=== PATIENT | female | born 1965 | race Caucasian/White ===

== ENCOUNTER 2016-12-04 13:53 | Inpatient (IN) | payer OTHER ==
[~2016-12-04] VITALS: Ht 160 cm; Wt 45.0 kg
[2016-12-04 13:53] VITALS: Ht 160 cm; Wt 45.0 kg
[2016-12-04] MEDS ORDERED: morphine 10 MG INJ IM ONE (14:30)
--- NOTE | 2016-12-04 15:07 | RADRPT ---
PROCEDURE: CT Brain without contrast. CLINICAL INDICATION: fall, thinks she hit head TECHNIQUE: A CT of the brain was performed on a multi-slice CT scanner utilizing axial imaging fro m the skull base through the vertex without IV contrast. Multiplanar reformatted images were made. Images were reviewed on a PACS workstation. The CTDIvol is 43.8 mGy and the DLP is 720 mGycm. COMPARISON: None FINDINGS: There is a calcified dural-based lesions seen along the anterior aspect of the frontal lobe on the l eft side consistent with a calcified meningioma. There is no surrounding edematous changes of the b rain parenchyma. There is localized mass effect without evidence of midline shift. No CT evidence of hemorrhage or infarct. The subarachnoid spaces are unremarkable. The ventricles are nondilated. There is no acute osseous abnormality. Mild mucosal thickening is seen within the maxillary sinuses and ethmoid air cells. The mastoid air cells are patent. Soft tissues of the sca lp and of the orbits are grossly unremarkable. IMPRESSION: 1. Calcified dural based meningioma seen overlying the left frontal lobe with localized mass effect and no evidence of edema. 2. Otherwise no acute intracranial process. .Deedee Kay MD, Date Time Electronically viewed and signed by .Deedee Kay MD, on 12/04/2016 15:07 .Salvador/
[2016-12-04] MEDS ORDERED: HYDROmorphONE 1 MG/ML SYG IV STA ×3 (15:19→19:10)
--- NOTE | 2016-12-04 15:19 | RADRPT ---
PROCEDURE: CT abdomen and pelvis without contrast. CLINICAL INDICATION: Mid abdominal pain. TECHNIQUE: CT of the abdomen and pelvis without contrast was performed on a multidetector high-res olution CT scanner. Coronal and sagittal reformatted images were obtained from the axial source imag es. Images were reviewed on a high-resolution PACS workstation. The total exam CTDI equals 4.4 mGy a nd the total exam DLP equals 220.59 mGy-cm. Evaluation of the upper abdomen is partially limited due to the patient's arms overlying. One or more of the following dose reduction techniques were used: - Automated exposure control. - Adjustment of the mA and/or kV according to patient size. - Use of iterative reconstruction technique. COMPARISON: None available. FINDINGS: A large left-sided pneumothorax with associated collapse of the left lung. There are small foci of subcutaneous emphysema within the overlying chest wall with no associated overlying rib fracture nicole ntified. The visualized heart and right lung base are unremarkable. There is a benign 1.6 cm cyst within the anterior right hepatic lobe. The liver is otherwise grossl y unremarkable. There is prominence of the biliary tree with the common bile duct measuring up to 9 mm in diameter, which may be related to reservoir effect given the surgical absence of the gallbladd er. No radiopaque stone is seen within the biliary tree. The spleen, pancreas, and adrenal glands ar e grossly unremarkable. There is severe atrophy of the left kidney and there is a punctate nonobstructing stone at the lower pole left kidney. There is no right-sided nephrolithiasis or hydronephrosis. There is no bowel wall thickening or evidence of obstruction. The appendix is in the right lower trina drant, and is unremarkable. There is no free intraperitoneal air or free fluid. There is no mesente miller or retroperitoneal adenopathy. There are atherosclerotic changes of the aorta, which is nonaneu rysmal. The uterus, adnexa, and urinary bladder are unremarkable. There are no concerning osseous l esions. IMPRESSION: 1. Large left-sided pneumothorax with associated collapse of the visualized left lung. Small foci o f subcutaneous emphysema overlying the left chest wall with no fracture of the visualized ribs ident ified. Dedicated chest CT may be warranted for further evaluation. 2. Benign 1.6 cm cyst in the anterior right hepatic lobe. 3. Prominence of the biliary tree with the CBD measuring up to 9 mm in diameter, which may be relat ed to reservoir effect given the surgical absence of the gallbladder. Correlate with bilirubin and alkaline phosphatase to assess for underlying obstruction. 4. Severely atrophic left kidney. Punctate nonobstructing stone at the lower pole left kidney. These findings discussed with Daniele Davis in the ED at 1513 hours on 12/04/2016. RPTAT: HLBP .Guillermo Parkinson MD, MD Date Time Electronically viewed and signed by .Guillermo Parkinson MD, MD on 12/04/2016 15:19 .P/
[2016-12-04 15:43] LABS: HEMATOCRIT 41.2 % (37.0-47.0); HEMOGLOBIN 13.1 g/dl (12.0-16.0); MEAN CORPUSCULAR HEMOGLOBIN 26.1 pg (29.0-33.0); MEAN CORPUSCULAR HGB CONC 31.9 g/dl (32.0-37.0); MEAN CORPUSCULAR VOLUME 81.7 fl (82.0-101.0); MEAN PLATELET VOLUME 8.8 fl (7.4-10.4); PLATELET COUNT 330 10^3/UL (140-440); RED BLOOD COUNT 5.04 10^6/ul (4.20-5.40); RED CELL DISTRIBUTION WIDTH 17.4 % (11.5-14.5); UNCORRECTED WBC 6.1 10^3/ul (4.8-10.8); WHITE BLOOD COUNT 6.1 10^3/ul (4.8-10.8)
[2016-12-04 15:46] LABS: CHLORIDE 105 mmol/L (97-110); INR 0.88; POTASSIUM 3.5 mmol/L (3.5-5.1); PROTIME 11.9 Sec (12.2-14.2); PT RATIO 0.9; SODIUM 142 mmol/L (135-144)
[2016-12-04 15:47] LABS: PARTIAL THROMBOPLASTIN TIME 25.6 Sec (25.0-35.0)
[2016-12-04 15:48] LABS: CONDITION 1; LH ANALYZER COMMENTS 1
[2016-12-04 15:49] LABS: ANION GAP 15 (8-16); BLOOD UREA NITROGEN 17 mg/dl (7-20); CALCIUM 8.8 mg/dl (8.4-10.2); CARBON DIOXIDE 26 mmol/L (21-31); GLUCOSE 101 mg/dl (70-220)
[2016-12-04] MEDS ORDERED: ETOMIDATE 20 MG INJ IV ONE (16:00)
[2016-12-04 16:01] LABS: TROPONIN-I < 0.012 ng/ml (0.00-0.12)
[2016-12-04 16:04] LABS: BASOPHIL # 0.2 10^3/ul (0.0-0.1); EOSINOPHILS # 0.1 10^3/ul (0.0-0.5); MONOCYTE # 0.3 10^3/ul (0.3-0.9); NEUTROPHIL # 4.4 10^3/ul (1.6-7.5)
--- NOTE | 2016-12-04 16:29 | RADRPT ---
PROCEDURE: CR left shoulder CLINICAL INDICATION: Shoulder pain TECHNIQUE: 3 views performed COMPARISON: No comparison available. FINDINGS: There is a total left pneumothorax. There is normal mineralization, architecture and alignment.No fracture or osseous lesion is identifi ed.The glenohumeral and acromioclavicular joints are unremarkable. The soft tissues are unremarkable . IMPRESSION: Probable left pneumothorax. Unremarkable left shoulder. RPTAT: HGDB .Jj Hsu MD, MD Date Time Electronically viewed and signed by .Jj Hsu MD, on 12/04/2016 16:28 .B/
[2016-12-04] MEDS ORDERED: FENTAnyl 50 MCG/ML VIAL IV ONE (16:30)
[2016-12-04] MEDS ORDERED: SOD CHLORIDE 0.9% 1,000 ML IV ONE ×2 (16:30→20:00)
--- NOTE | 2016-12-04 16:30 | RADRPT ---
PROCEDURE: XR Chest. CLINICAL INDICATION: Chest pain TECHNIQUE: Chest AP portable. COMPARISON: No comparison available. FINDINGS: Sternotomy The mediastinal structures are unremarkable. The heart is normal in size and configuration. The pu lmonary vascularity is normal. There is a total left pneumothorax. No consolidation is identified. The right pleural space is unremarkable. There is a left 7th posterior rib fracture. IMPRESSION: Total left pneumothorax Left 7th posterior rib fracture RPTAT: HGDB Case discussed with the emergency room physician .Jj Hsu MD, MD Date Time Electronically viewed and signed by .Jj Hsu MD, on 12/04/2016 16:29 .B/
[2016-12-04] MEDS ORDERED: PROPOFOL 200 MG INJ IV ONE ×2 (17:30→19:00)
--- NOTE | 2016-12-04 17:39 | RADRPT ---
PROCEDURE: XR Chest. CLINICAL INDICATION: Chest tube placement TECHNIQUE: Single portable view of the chest was obtained COMPARISON: Same day FINDINGS: Placement of a left-sided chest tube which extends into the left upper thorax. Previously seen pneu mothorax has diminished in size and is mild to moderate in size on the current exam. The apical pleu ral margin is approximately 5 cm from the thoracic apex in this previously been approximately 10 cm in length. A trace amount of left basilar atelectasis remains. The right lung is clear. IMPRESSION: Left chest tube in place with diminished in size of a left-sided pneumothorax with mild to moderate pneumothorax remaining. RPTAT: AA .Deedee Kay MD, Date Time Electronically viewed and signed by .Deedee Kay MD, on 12/04/2016 17:39 .Salvador/
[2016-12-04 17:41] LABS: ALBUMIN 3.7 g/dl (3.3-4.9)
[2016-12-04 17:44] LABS: TOTAL PROTEIN 7.3 g/dl (6.1-8.1)
--- NOTE | 2016-12-04 18:40 | RADRPT ---
PROCEDURE: XR Chest. CLINICAL INDICATION: Follow-up of pneumothorax TECHNIQUE: Single portable view of the chest was obtained COMPARISON: Earlier the same date 12/04/2016 FINDINGS: Is continued re-expansion of the left lung with only trace residual pneumothorax remaining. The hear t, mediastinum, and lungs are otherwise unchanged from earlier the same day. IMPRESSION: Continued reexpansion of the left lung RPTAT: AA .Deedee Kya MD, MD Date Time Electronically viewed and signed by .Deedee Kay MD, on 12/04/2016 18:39 .J/
[2016-12-04 18:49] VITALS: TEMP 98.2
[2016-12-04] MEDS ORDERED: DILTIAZEM-D5W 125MG/125ML DRIP 125 ML IV SCH (19:00)
[2016-12-04] MEDS ORDERED: DILTIAZEM 25 MG INJ IV ONE (19:00)
[2016-12-04] MEDS ORDERED: ONDANSETRON 4 MG INJ IV PRN ×2 (21:00→22:00)
[2016-12-04] MEDS ORDERED: ACETAMINOPHEN 325 MG TAB PO PRN (21:00)
[2016-12-04 21:10] VITALS: BP 115/56; PULSE 88; RESP 17
[2016-12-04 21:25] VITALS: BP 115/56; RESP 17
[2016-12-04 21:30] VITALS: PULSE 103
[2016-12-04] MEDS ORDERED: LACO50TA5 PO (21:33)
[2016-12-04] MEDS ORDERED: GABA300C PO (21:33)
[2016-12-04] MEDS ORDERED: PANT20TA2 PO (21:33)
[2016-12-04] MEDS ORDERED: LORA1TAB PO (21:33)
--- NOTE | 2016-12-04 22:33 | ERA ---
ER Documentation Chief Complaint Date/Time DATE: 12/04/16 TIME: 22:03 Chief Complaint L rib pain HPI 81-year-old female presents with significant left-sided rib pain after she fell. States that she had new shoes and she tripped over and fell onto her left side and shortly after developed severe left rib pain. She also has pain in her left shoulder and her left abdomen. She thinks that she probably hit her head but did not lose consciousness. She denies any other injury area of pain. States that she remembers the fall well. ROS All systems reviewed and are negative except as per history of present illness. Medications Home Meds Reported Medications Lacosamide (Vimpat) 50 Mg Tablet, 75 MG PO BID for SEIZURES, TAB 12/04/16 Lorazepam* (Lorazepam*) 1 Mg Tablet, 1 MG PO TID, #30 TAB 12/04/16 Pantoprazole* (Protonix*) 20 Mg Tablet.dr, 20 MG PO BID, TAB 12/04/16 Gabapentin* (Neurontin*) 300 Mg Capsule, 300 MG PO TID, #90 CAP 12/04/16 Allergies Allergies: Coded Allergies: No Known Allergies (Verified Allergy, Unknown, 12/04/16) PMhx/Soc History of Surgery: Yes (gallbladder) Anesthesia Reaction: No Hx Neurological Disorder: Yes (R frontal lobe brain tumor) Hx Respiratory Disorders: No Hx Cardiac Disorders: No Hx Psychiatric Problems: Yes (unknown psych) Hx Miscellaneous Medical Probl: Yes (fibromialgia) Hx Alcohol Use: No Hx Substance Use: No Hx Tobacco Use: No Smoking Status: Never smoker Physical Exam Vitals Vital Signs Date Time Temp Pulse Resp B/P Pulse Ox O2 Delivery O2 Flow Rate FiO2 12/04/16 20:35 100 4.0 33 12/04/16 18:49 98.2 108 15 114/76 100 Non Rebreather 12/04/16 18:30 105 14 103/82 100 Nasal Cannula 4.0 12/04/16 18:25 103 17 99/76 100 Non Rebreather 12/04/16 18:20 105 13 91/67 100 Non Rebreather 10.0 12/04/16 18:15 102 13 88/64 100 Non Rebreather 12/04/16 18:10 106 13 112/79 100 Non Rebreather 12/04/16 18:05 105 13 98/72 100 Non Rebreather 12/04/16 18:00 98.2 99 13 88/67 100 Non Rebreather 12/04/16 17:45 91 13 129/86 100 Non Rebreather 12/04/16 17:30 98.2 109 15 114/83 100 Non Rebreather 12/04/16 17:15 109 17 157/139 100 Non Rebreather 12/04/16 17:00 111 19 179/155 100 Non Rebreather 12/04/16 16:45 106 17 124/96 100 Non Rebreather 12/04/16 16:30 115 17 132/101 100 Non Rebreather 12/04/16 16:15 111 17 119/84 100 Non Rebreather 12/04/16 16:05 113 17 124/84 100 Non Rebreather 12/04/16 16:00 115 16 112/84 100 Non Rebreather 12/04/16 15:55 112 15 114/83 100 Non Rebreather 12/04/16 15:45 Non Rebreather 12/04/16 15:45 118 25 118/86 96 Room Air 12/04/16 15:36 98.2 115 26 111/97 97 Room Air 12/04/16 13:53 98.4 79 20 125/85 99 Physical Exam Const: [] Mild distress, appears very uncomfortable holding her left rib area Head: Atraumatic Eyes: Normal Conjunctiva ENT: Normal External Ears, Nose and Mouth. Neck: Full range of motion..~ No meningismus. Resp: Clear to auscultation bilaterally Cardio: Regular tachycardia, no murmurs Abd: Soft, mild left-sided tenderness without guarding or rebound,, non distended. Normal bowel sounds Skin: No petechiae or rashes Back: No midline or flank tenderness Ext: No cyanosis, or edema. Does have some purpuric bruising of her left rib cage Neur: Awake and alert and oriented 3, no focal deficits Psych: Appears anxious. Result Diagram: 12/04/16 1528 12/04/16 1528 Results 24 hrs Laboratory Tests Test 12/04/16 15:28 12/04/16 15:35 Activated Partial Thromboplast Time 25.6Sec Anion Gap 15 Band Neutrophils % 1.0% Basophils # 0.210^3/ul Basophils % 4.0% Blood Morphology Comment Blood Urea Nitrogen 17mg/dl Calcium Level 8.8mg/dl Carbon Dioxide Level 26mmol/L Chloride Level 105mmol/L Creatinine 1.30mg/dl Eosinophils # 0.110^3/ul Eosinophils % 2.0% Glucose Level 101mg/dl Hematocrit 41.2% Hemoglobin 13.1g/dl INR International Normalized Ratio 0.88 Lymphocytes # 1.010^3/ul Lymphocytes % 16.0% Mean Corpuscular Hemoglobin 26.1pg Mean Corpuscular Hemoglobin Concent 31.9g/dl Mean Corpuscular Volume 81.7fl Mean Platelet Volume 8.8fl Monocytes # 0.310^3/ul Monocytes % 5.0% Neutrophils # 4.410^3/ul Neutrophils % 72.0% Platelet Count 11817^3/UL Potassium Level 3.5mmol/L Prothrombin Time 11.9Sec Prothrombin Time Ratio 0.9 Red Blood Count 5.0410^6/ul Red Cell Distribution Width 17.4% Sodium Level 142mmol/L Troponin I < 0.012ng/ml White Blood Count 6.110^3/ul Alanine Aminotransferase (ALT/SGPT) 49IU/L Albumin 3.7g/dl Alkaline Phosphatase 142IU/L Aspartate Amino Transf (AST/SGOT) 75IU/L Direct Bilirubin 0.00mg/dl Indirect Bilirubin 0.0mg/dl Lipase 679U/L Total Bilirubin 0.0mg/dl Total Protein 7.3g/dl Current Medications Medications (Trade) Dose Ordered Sig/Kian Route PRN Reason Start Time Stop Time Status Last Admin Dose Admin Morphine Sulfate (morphine) 4 mg ONCE ONCE IM 12/04/16 14:30 12/04/16 21:16 DC 12/04/16 14:34 Hydromorphone HCl (Dilaudid) 1 mg ONCE STAT IV 12/04/16 15:19 12/04/16 15:22 DC 12/04/16 15:32 Etomidate (Amidate) 20 mg ONCE ONCE IV 12/04/16 16:00 12/04/16 21:16 DC 12/04/16 15:44 Fentanyl 50 mcg 50 mcg ONCE ONCE IV 12/04/16 16:30 12/04/16 16:31 DC 12/04/16 16:26 Sodium Chloride (NS) 1,000 ml @ 1,000 mls/hr Q1H ONCE IV 12/04/16 16:30 12/04/16 17:29 DC 12/04/16 16:28 Hydromorphone HCl (Dilaudid) 1 mg ONCE STAT IV 12/04/16 16:48 12/04/16 16:49 DC 12/04/16 16:55 Propofol (Diprivan) 40 mg ONCE ONCE IV 12/04/16 17:30 12/04/16 17:31 DC Propofol (Diprivan) 40 mg ONCE ONCE IV 12/04/16 19:00 12/04/16 19:01 DC Diltiazem HCl 20 mg 20 mg ONCE ONCE IV 12/04/16 19:00 12/04/16 19:00 DC Diltiazem HCl (Cardizem-D5W 125 Mg/125 ml Drip) 125 ml @ 5 mls/hr TITRATE IV 12/04/16 19:00 12/04/16 19:00 DC Hydromorphone HCl 1 mg 1 mg ONCE STAT IV 12/04/16 19:10 12/04/16 19:11 DC 12/04/16 19:16 Sodium Chloride (NS) 1,000 ml @ 1,000 mls/hr Q1H ONCE IV 12/04/16 20:00 12/04/16 20:59 DC 12/04/16 20:04 Procedures/MDM Traumatic pneumothorax and 51-year-old female with status posterior rib fracture. Both pain and shortness of breath increased her from the initial presentation. Was developing tension pneumothorax. Initially given 4 mg of morphine for pain which helped but started having severe pain shortly after. She is given Dilaudid in liter of normal saline. Chest tube was placed bradycardia decompression of pneumothorax. Patient started having severe pain again as well as shortness of breath. X-rays obtained and patient had pulled out the chest tube which was likely all she was recovering from the sedation from the first chest tube. On repeat examination under sterile conditions her seizures had torn through her skin and she was bleeding externally from the laceration tear site. Chest it was again placed under sterile conditions leading to resolution of pneumothorax once again and patient was carefully watch by staff until her propofol sedation worn off. Chest x-ray that point showed complete resolution pneumothorax. Patient's vital signs were completely stable after that point. She has evidence of mild renal insufficiency. Pain was controlled with 1 more dose of Dilaudid at that point. She's being admitted to telemetry for further monitoring and management of chest tube. Dr. Steward will be admitting. Chest tube insertion note #1: Patient was sedated with etomidate, copious iodine was used for sterilization of the chest tube site. Sterile technique was used with gown and mask, gloves, sterile towels. 2 cm incision was made in the left fourth fifth interspace, Janet clamp was used to puncture lungs just over the fifth rib. Good air flow is obtained. Size 28 chest tube was inserted without trocar. There was good condensation of the chest tube. Was inserted to 14 cm. Size 0 silk sutures were used to close up the Laceration tightly wrapped the chest tube several times with mild indentation of the chest tube. Sterile form gauze was used around the site, nipples covered with gauze and chest tube tape was applied and crimped around the chest tube. Gauzes use underneath the chest tube were contacted the chest. Chest tube was placed to continuous suction and there was no air leak. Patient child procedure well. There were no complications until the patient pulled out their own chest tube or recovering from sedation. Chest tube insertion note #2: Patient was sedated with propofol 40 mg initially , sterile technique was once again used after removal of previous chest tube tape. Gown and mask Sterile gloves and drapes were used. A new size 28 chest tube was placed over a bougie to the same site. There was immediate release of air and good condensation of the chest tube. Is again asked the cephalad direction to 14 cm. Size 0 silk suture was used to close the gap entire around the chest tube. Patient had continued blood oozing out of the chest tube site, second suture was placed in the interspace between the central laceration suture the outside of the suture using 4-0 silk sutures. Another pursestring suture was placed using size 0 silk surrounding the chest tube skin area. This led to complete hemostasis. Patient tied the procedure well there were no complications. Chest x-ray interpretation #1: Large left-sided pneumothorax with mediastinal shift, posterior rib fracture by the seventh or eighth rib, no infiltrates, no or edema. Chest x-ray interpretation #2: Persistent left-sided moderate pneumothorax with chest tube barely inserted, no infiltrates, no pulmonary edema, persisted and posterior rib fracture Chest x-ray interpretation #3: Left-sided chest tube in place at apex of lung, complete resolution pneumothorax, no infiltrates, no pulmonary edema, persistent posterior fracture CT head on pelvis interpretation: Large left-sided pneumothorax without obvious visible rib fracture, no obstruction, no free air, no spinal abnormalities Head interpretation: No acute process, no hemorrhage no mass effect no midline shift no skull fracture. Meningioma is present according to radiology report. EKG interpretation: Sinus tachycardia rate of 110, indeterminate axis, no ST or 2 changes concerning for acute ischemia, normal intervals ekg monitor tech interpretation: Alternating sinus tachycardia and normal sinus rhythm with no other arrhythmias Critical care time: This includes management of respiratory distress secondary to traumatic pneumothorax which developed into a tension pneumothorax, consideration of intubation, careful fluid administration, chart review, discussion with patient admitting doctor, multiple visits the patient's bedside to reassess her status performed cardio vascular and pulmonary exams. It does not include billable procedures. Departure Diagnosis: Primary Impression: Traumatic pneumothorax Additional Impressions: Left rib fracture Renal insufficiency Respiratory distress Condition: Stable STUART CAVANAUGH DO Dec 04, 2016 22:33
[2016-12-04] MEDS: HYDROmorphONE 1 MG/ML SYG IV PRN (23:25)
[2016-12-05] VITALS (12 sets, daily range): BP systolic 88–96; BP diastolic 52–67; PULSE 86–99; RESP 18–20
[2016-12-05] MEDS ORDERED: SOD CHLORIDE 0.9% 500 ML IV ONE ×3 (03:30→21:00)
[2016-12-05] MEDS: KETOROLAC 30 MG INJ IV PRN ×2 (03:31→09:20)
[2016-12-05] MEDS ORDERED: PANTOPRAZOLE SODIUM 20 MG TABEC PO SCH ×2 (06:00)
--- NOTE | 2016-12-05 06:05 | HP ---
DATE OF ADMISSION: 12/04/2016 CHIEF COMPLAINT: Fall, pain, and shortness of breath. HISTORY OF PRESENT ILLNESS: The patient is a 51-year-old female with a history of frontal lobe meni ngioma, fibromyalgia, and anxiety who presented to the emergency department after she just had a shane und level fall sustaining severe pain around her left rib area. She said she tripped over a shoe an d that is the cause of her fall. She denied any chest pain, palpitations, lightheadedness, dizzines s, or visual disturbance prior to her fall. She is not sure whether or not she hit her head, but sh e denied loss of consciousness or seizure-like activity. When she presented to the ER, her vitals were stable, but while in the ER, she has been tachycardic. Chest x-ray showed total left pneumothorax as well as left 7th posterior rib fracture. A chest tu be was placed, and a repeat chest x-ray showed reexpansion of the left lung. A brain CT was done, a nd it showed calcified dural based meningioma in the left frontal lobe with localized mass effect an d no evidence of edema. CT abdomen and pelvis showed large left hydropneumothorax without associate d collapse of the visualized left lung. Also, incidentally, prominence of the biliary tree with CBD measuring up to 9 mm in diameter was noted which may be related to reservoir effect given the surgi marshal absence of the gallbladder. Also noted was severely atrophic left kidney. Shoulder x-ray was u nremarkable for left shoulder abnormality. REVIEW OF SYSTEMS: A 12-point review was performed and negative except as mentioned in HPI. PAST MEDICAL HISTORY: As per HPI. PAST SURGICAL HISTORY: Cholecystectomy. SOCIAL HISTORY: Denied history of tobacco, alcohol, or illicit drug use. ALLERGIES: NO KNOWN DRUG ALLERGIES. HOME MEDICATIONS: 1. Gabapentin. 2. Lacosamide. 3. Ativan as needed. 4. Protonix. PHYSICAL EXAMINATION: VITAL SIGNS: Blood pressure 115/56, heart rate 88, respiratory rate 17, temperature 98.3, oxygen sa turation 96% on 2 liters. GENERAL: The patient is in mild distress due to pain on the left side of her chest. HEENT: No obvious head deformity. Pupils equal and reactive to light. Extraocular muscles intact. CARDIOVASCULAR: Tachycardic with regular rhythm. CHEST: Her lungs are clear for the most part with slightly decreased breath sounds at the bases on the left side. There is a chest tube in place. ABDOMEN: Soft. There is minimal tenderness to deep palpation diffusely with no guarding, rebound t enderness, or rigidity. EXTREMITIES: No edema. NEUROLOGIC: No focal deficits. LABORATORY DATA: Creatinine 1.3, AST 75, alkaline phosphatase 142, lipase 679. Otherwise, CBC and CMP within acceptable range. IMAGING: Brain CT, chest x-ray, shoulder x-ray, and CT abdomen and pelvis with results as mentioned in the HPI. IMPRESSION: 1. Large left-sided pneumothorax after ground level fall injury status post placement of a chest tu be with reexpansion of the left lung. 2. Shortness of breath, secondary to above, improved. 3. Presumed acute kidney injury. 4. Dilated common bile duct with elevated lipase, questionable gallstone pancreatitis. 5. History of left frontal lobe meningioma. 6. History of fibromyalgia. PLAN: We will continue chest tube to suction. We will place a consult to cardiothoracic surgeon. She will be placed on continuous oxygen. A chest x-ray will be repeated periodically to see resolut ion. We will provide pain medication as needed. As far as her elevated creatinine is concerned, it is presumed to be acute. We will provide IV fluids and monitor closely with avoidance of nephrotox ins and renally dosing all her medications. If no improvement or if it worsens, we will obtain a re nal ultrasound and nephrology consult. Incidentally, the common bile duct was noted to be measuring 9 mm, and her lipase is almost 700. The patient has a history of cholecystectomy. The plan is to obtain MRCP to further evaluate the common bile duct, and based on the result, we will place a GI co nsult. We will continue her home medications including her anti-seizure medication given her left f rontal meningioma. Further workup and management per clinical course. Dictated By: MITRA MONROE/NICOLE Conf#: [id number] DID#: [id number]
[2016-12-05] MEDS ORDERED: LACOSAMIDE (10 MG/ML PO SYG) PO SCH (09:00)
[2016-12-05] MEDS ORDERED: LACOSAMIDE PO SCH (09:00)
[2016-12-05] MEDS ORDERED: LORAZEPAM 1 MG TAB PO SCH (09:00)
[2016-12-05] MEDS: GABAPENTIN 300 MG CAP PO SCH ×3 (09:13→21:46)
[2016-12-05] MEDS: LACOSAMIDE (10 MG/ML PO SYG) PO SCH ×2 (10:34→21:00)
--- NOTE | 2016-12-05 11:37 | PN ---
Date/Time of Note Date/Time of Note DATE: 12/05/16 TIME: 11:33 Assessment/Plan VTE Prophylaxis VTE Prophylaxis Intervention: contraindicated (may need surgery) Lines/Catheters IV [facility]ter Type (from [facility]): Saline Lock Urinary Cath still in place: No Assessment/Plan Chief Complaint/Hosp Course Hospitalist service coverage Subjective: Mild/ mod pain. Possible tape allergy. No significant dyspnea present. Was wearing new slippers and fell on her vacuum at home. Objective: Bp fluctuating. Sinus rhythm Physical examination No icterus, pallor/ adenopathy. Bitemp wasting+ Reg; no murmur rub or gallop Diminished on lt. some chest wall ecchymosis Bs +, nt, nd, no R/R/G No edema Assessment and plan 1. Lt traumatic pneumothorax; stable. sp chest tube. Ct chest ordered 2. Mechanical fall 3. Possible benzodiazepine dependence 4. Chronic fibromyalgia 5. Chronic meningioma; mass effect? mri when stable 6. Subcutaneous emphysema 7. Enlarged cbd; probably asymptomatic 8. Tape allergy 9. Weight loss? Outpt GI eval 10. Heartburn? 11. Problems: Exam/Review of Systems Vital Signs Vitals Vital Signs Date Time Temp Pulse Resp B/P Pulse Ox O2 Delivery O2 Flow Rate FiO2 12/05/16 11:19 98.5 65 20 88/55 99 12/04/16 21:10 Nasal Cannula 2.0 12/04/16 20:35 33 Intake and Output 12/04/16 12/04/16 12/05/16 15:00 23:00 07:00 Intake Total 60 ml Output Total 0 ml 100 ml Balance 0 ml -40 ml Results Result Diagram: 12/04/16 1528 12/04/16 1528 Results 24 hrs Laboratory Tests Test 12/04/16 15:28 12/04/16 15:35 Activated Partial Thromboplast Time 25.6 Anion Gap 15 Band Neutrophils % 1.0 Basophils # 0.2 H Basophils % 4.0 H Blood Morphology Comment Blood Urea Nitrogen 17 Calcium Level 8.8 Carbon Dioxide Level 26 Chloride Level 105 Creatinine 1.30 H Eosinophils # 0.1 Eosinophils % 2.0 Glucose Level 101 Hematocrit 41.2 Hemoglobin 13.1 INR International Normalized Ratio 0.88 Lymphocytes # 1.0 Lymphocytes % 16.0 Mean Corpuscular Hemoglobin 26.1 L Mean Corpuscular Hemoglobin Concent 31.9 L Mean Corpuscular Volume 81.7 L Mean Platelet Volume 8.8 Monocytes # 0.3 Monocytes % 5.0 Neutrophils # 4.4 Neutrophils % 72.0 Platelet Count 330 Potassium Level 3.5 Prothrombin Time 11.9 L Prothrombin Time Ratio 0.9 Red Blood Count 5.04 Red Cell Distribution Width 17.4 H Sodium Level 142 Troponin I < 0.012 White Blood Count 6.1 Alanine Aminotransferase (ALT/SGPT) 49 Albumin 3.7 Alkaline Phosphatase 142 H Aspartate Amino Transf (AST/SGOT) 75 H Direct Bilirubin 0.00 Indirect Bilirubin 0.0 Lipase 679 H Total Bilirubin 0.0 L Total Protein 7.3 Medications Medications Current Medications Gabapentin (Neurontin) 300 mg TID PO Last administered on 12/05/16 09:13; Admin Dose 300 MG; Start 12/05/16 at 09:00 Lorazepam (Ativan) 1 mg TID PO ; Start 12/05/16 at 09:00 Hydromorphone HCl (Dilaudid) 1 mg Q3 PRN IV PAIN Last administered on 23:25; Admin Dose 1 MG; Start 12/04/16 at 22:00 Morphine Sulfate (morphine) 4 mg Q4H PRN IV PAIN; Start 12/04/16 at 22:00 Ondansetron HCl (Zofran Inj) 4 mg Q6H PRN IV NAUSEA AND/OR VOMITING; Start at 22:00 Pantoprazole Sodium (Protonix) 20 mg BID@06,18 PO Last administered on 05:18; Admin Dose 20 MG; Start 12/05/16 at 06:00 Ketorolac Tromethamine (Toradol) 30 mg Q6H PRN IV PAIN Last administered on 09:20; Admin Dose 30 MG; Start 12/05/16 at 03:30; Stop 12/05/16 at 14:00 Lacosamide (Vimpat Liq) 75 mg BID PO Last administered on 12/05/16 10:34; Admin Dose 75 MG; Start 12/05/16 at 10:30 Ketorolac Tromethamine (Toradol) 30 mg Q8 IV ; Start 12/05/16 at 14:00; Stop at 23:55; Status COLTEN KELLER MD Dec 05, 2016 11:36
[2016-12-05] MEDS ORDERED: LIDOCAINE/MYLANTA 40 ML BTL PO PRN (12:30)
[2016-12-05] MEDS: LORAZEPAM 1 MG TAB PO SCH ×2 (12:51→21:46)
[2016-12-05] MEDS ORDERED: LORAZEPAM 2 MG INJ IV PRN (13:30)
[2016-12-05] MEDS: KETOROLAC 15 MG INJ IV SCH ×2 (15:47→22:00)
--- NOTE | 2016-12-05 17:00 | RADRPT ---
PROCEDURE: CT Chest without contrast. CLINICAL INDICATION: re Lt pneumothorax TECHNIQUE: CT scan of the chest without contrast was performed on a multidetector high-resolution CT scanner. Coronal and sagittal reformatted images were obtained from the axial source images. The total exam CTDI equals 3 mGy and the total exam DLP equals 126 mGy-cm. COMPARISON: Chest x-ray December 04 FINDINGS: Noted is a surgical chest tube in the anterior left pleural cavity. There is a small residual apica l, anterior and inferior anterior pneumothorax. Small left pleural effusion is seen and there is pa rtial collapse of the left lower lobe. No right-sided pneumothorax is seen in the right lung is norman ar of any infiltrate. There is no pneumomediastinum. No lung infiltrate or mass is seen. There is no hilar or mediastinal adenopathy or mass. No upper abdominal or adrenal mass is present. Gallbladder has been removed. The left kidney is at rophic. There is a chronic superior endplate compression fracture of T12. No other fracture is identified. IMPRESSION: Small residual left pneumothorax in patient with surgical chest tube. Small left pleural effusion. Left basilar atelectasis. Post cholecystectomy. Atrophic left kidney. .Gilmar Stanford MD, MD Date Time Electronically viewed and signed by .Gilmar Stanford MD, on 12/05/2016 16:59 .A/
--- NOTE | 2016-12-05 17:41 | CONS ---
DATE OF ADMISSION: 12/04/2016 DATE OF CONSULTATION: TYPE OF CONSULTATION: Cardiothoracic. REASON FOR CONSULTATION: Pneumothorax. Thank you, Dr. Hoover for asking me to see this patient. HISTORY OF PRESENT ILLNESS: This is a 51-year-old female who has a history of frontal lobe meningio ma, fibromyalgia. The patient had a traumatic fall and was found to have a pneumothorax, hemothorax . Chest tube was placed. Chest tube has drained about 200 mL of serosanguineous fluid. Subsequent ly, the chest x-ray is pending. PAST MEDICAL HISTORY: Significant for fibromyalgia. Neuro history of meningioma. PAST SURGICAL HISTORY: Cholecystectomy. ALLERGIES: NONE. SOCIAL HISTORY: No smoking, drinking or drug use. MEDICATIONS: 1. Gabapentin. 2. Ativan. 3. Protonix. PHYSICAL EXAMINATION: VITAL SIGNS: Blood pressure is 88/55, pulse is 65, respirations 20, saturations 99% on room air. HEENT: Normocephalic, atraumatic. NECK: Supple. No JVD, no carotid bruits. CARDIOVASCULAR: Regular rate and rhythm. LUNGS: Clear to auscultation and palpation bilaterally. ABDOMEN: Soft, nontender, nondistended. EXTREMITIES: Warm. LABORATORY VALUES: Significant for a hemoglobin of 13.1, white count 6.1, count 380. IMPRESSION: Left pneumothorax status post chest tube. RECOMMENDATIONS: Will get a CAT scan of the chest to evaluate for any residual hematoma or hemothor ax. Discussed with Dr. Hoover and the patient will continue chest tube suction at the present time and monitor hemoglobin levels. Dictated By: EBONI BONE/NICOLE Conf#: [id number] DID#: [id number]
[2016-12-05] MEDS: PANTOPRAZOLE SODIUM 20 MG TABEC PO SCH (17:44)
--- NOTE | 2016-12-05 22:04 | RADRPT ---
PROCEDURE: MRCP. CLINICAL INDICATION: Elevated liver function tests. TECHNIQUE: MRCP was performed. The following sequences were obtained: Three plane gradient echo localizers, coronal gradient echo images, breath hold axial T2-weighted fat saturation images, katerin nal T2-weighted images, axial 3-D LAVA images, axial T2-weighted breath hold fast spin echo images, and 3-D coronal rotating MIP images of the biliary tree. COMPARISON: CT scan of the abdomen and pelvis dated 12/04/2016 FINDINGS: The liver is normal in size. There is a benign cyst in the right hepatic lobe anteriorly measuring 1.6 cm. There is no other focal hepatic lesion. There is no focal hepatic lesion. The spleen is normal in size and homogeneous in signal intensity. The gallbladder is surgically absent. The biliary tree is not dilated. No intrahepatic nor extrahepatic biliary dilatation is present. The pancreatic duct is grossly normal. The right kidney is unremarkable. The left kidney is atrophic and there is mild left hydronephrosis . IMPRESSION: 1. Benign hepatic cyst. 2. Status post cholecystectomy. 3. Normal common bile duct and pancreatic duct. 4. Atrophic left kidney with mild hydronephrosis. 5. Otherwise unremarkable study. RPTAT: QQ .Bernabe Pierce MD, MD Date Time Electronically viewed and signed by .Bernabe Pierce MD, on 12/05/2016 22:04 .R/
[2016-12-06] VITALS (14 sets, daily range): BP systolic 80–107; BP diastolic 48–64; PULSE 77–90; RESP 18–20
[2016-12-06] MEDS: KETOROLAC 15 MG INJ IV SCH ×4 (03:17→21:13)
[2016-12-06] MEDS: PANTOPRAZOLE SODIUM 20 MG TABEC PO SCH ×2 (06:12→16:44)
[2016-12-06 06:45] LABS: HEMATOCRIT 25.2 % (37.0-47.0); MEAN CORPUSCULAR HEMOGLOBIN 26.2 pg (29.0-33.0); MEAN CORPUSCULAR HGB CONC 31.7 g/dl (32.0-37.0); MEAN CORPUSCULAR VOLUME 82.6 fl (82.0-101.0); MEAN PLATELET VOLUME 9.1 fl (7.4-10.4); PLATELET COUNT 217 10^3/UL (140-440); RED BLOOD COUNT 3.05 10^6/ul (4.20-5.40); RED CELL DISTRIBUTION WIDTH 17.3 % (11.5-14.5); UNCORRECTED WBC 4.4 10^3/ul (4.8-10.8); WHITE BLOOD COUNT 4.4 10^3/ul (4.8-10.8)
[2016-12-06 06:54] LABS: CONDITION 1; LH ANALYZER COMMENTS 1
[2016-12-06 06:59] LABS: INR 0.98
[2016-12-06] MEDS: LORAZEPAM 1 MG TAB PO SCH (08:12)
[2016-12-06] MEDS: GABAPENTIN 300 MG CAP PO SCH ×3 (08:12→21:13)
[2016-12-06 08:25] LABS: BASOPHIL # 0.1 10^3/ul (0.0-0.1); EOSINOPHILS # 0.1 10^3/ul (0.0-0.5); LYMPHOCYTES # 1.1 10^3/ul (0.8-2.9); MONOCYTE # 0.1 10^3/ul (0.3-0.9); NEUTROPHIL # 2.7 10^3/ul (1.6-7.5)
[2016-12-06 08:40] LABS: ALBUMIN 1.9 g/dl (3.3-4.9)
[2016-12-06 08:41] LABS: POTASSIUM 3.2 mmol/L (3.5-5.1)
[2016-12-06 08:43] LABS: ALBUMIN/GLOBULIN RATIO 0.86; CALCIUM 7.7 mg/dl (8.4-10.2); MAGNESIUM 1.4 mg/dl (1.7-2.5); PHOSPHORUS 3.8 mg/dl (2.5-4.9); TOTAL PROTEIN 4.1 g/dl (6.1-8.1)
[2016-12-06] MEDS ORDERED: PANTOPRAZOLE SODIUM 20 MG TABEC PO SCH (09:00)
[2016-12-06 09:14] LABS: THYROID STIMULATING HORMONE 0.399 MIU/L (0.465-4.680)
[2016-12-06] MEDS: morphine 4 MG/ML VIAL IV PRN ×2 (10:01→16:44)
[2016-12-06] MEDS: LACOSAMIDE (10 MG/ML PO SYG) PO SCH ×2 (10:01→21:52)
--- NOTE | 2016-12-06 10:58 | RADRPT ---
PROCEDURE: XR Chest 1 View. CLINICAL INDICATION: Shortness of breath, pneumothorax follow up TECHNIQUE: AP view of the chest were obtained. COMPARISON: December 04, [address] December 05, 2016 FINDINGS: Heart size is within normal limits. Calcified atherosclerosis is seen in the aorta. Left-sided raymundo st tube is stable. Trace left apical pneumothorax appears grossly stable. Small left pleural effus ion with associated basilar atelectasis/infiltrate is unchanged. Osseous structures are osteopenic, but appear stable. IMPRESSION: Calcified atherosclerosis in the aorta. Stable left chest tube and trace left apical pneumothorax. Stable small left pleural effusion with associated basilar atelectasis/infiltrate. RPTAT: AA .Jefry Fields MD, Date Time Electronically viewed and signed by .Jefry Fields MD, on 12/06/2016 10:58 .P/
[2016-12-06] MEDS ORDERED: POTASSIUM CHLORIDE (SR) 20 MEQ TAB PO STA (14:15)
--- NOTE | 2016-12-06 14:22 | PN ---
Date/Time of Note Date/Time of Note DATE: 12/06/16 TIME: 14:12 Assessment/Plan VTE Prophylaxis VTE Prophylaxis Intervention: SCD's Lines/Catheters [facility] Peripheral IV Urinary Cath still in place: No Assessment/Plan Assessment/Plan 1. Large left-sided pneumothorax after ground level fall injury status post placement of a chest tube with reexpansion of the left lung. follow up with surgery 2. Shortness of breath, secondary to above, improved. 3. Presumed acute kidney injury. 4. Elevated lipase, unclear significance, check amylase 5. History of left frontal lobe meningioma. 6. History of fibromyalgia. 7. Anemia, acute loss, follow up with CBC 8. Hypokalemia, KCL 9. Hypomagnesemia, Mg 10. Negative MRCP for CBD Subjective 24 Hr Interval Summary Free Text/Dictation no abdominal pain, no nausea or vomiting. No shortness of breath Exam/Review of Systems Vital Signs Vitals Vital Signs Date Time Temp Pulse Resp B/P Pulse Ox O2 Delivery O2 Flow Rate FiO2 12/06/16 12:50 107/64 12/06/16 12:10 90 12/06/16 11:06 97.8 18 98 12/06/16 00:09 3.0 12/05/16 20:39 Nasal Cannula 12/04/16 20:35 33 Intake and Output 12/05/16 12/05/16 12/06/16 15:00 23:00 07:00 Intake Total 1220 ml 400 ml Output Total 0 ml Balance 1220 ml 400 ml Exam Constitutional: alert, oriented, well developed Psych: nl mood/affect, no complaints Head: atraumatic, normocephalic Eyes: EOMI, PERRL, nl conjunctiva, nl lids ENMT: mucosa pink and moist, nl external ears & nose, nl lips & teeth, nl nasal mucosa & septum Neck: non-tender, supple Respiratory: clear to auscultation, other (left side chest tube) Cardiovascular: nl pulses, regular rate and rhythm, No S3, No S4, No bruits, No diastolic murmur, No edema, No gallop, No irregular rhythm, No jugular venous distention (JVD), No murmurs/extra sounds, No rub, No systolic murmur Gastrointestinal: nl liver, spleen, non-tender, soft, No ascites, No bowel sounds, No distended, No firm, No hepatomegaly, No mass , No rebound or guarding, No splenomegaly, No surgical scars, No tender Musculoskeletal: nl extremities to inspection Extremities: normal pulses, No calf tenderness, No clubbing, No cyanosis, No edema, No palpable cord, No pitting pedal edema, No tenderness Neurological: LIFE TRAINER II-XII intact, nl mental status, nl speech, nl strength Skin: nl turgor, rash or lesions Lymph: nl lymph nodes Results Result Diagram: 12/06/1645 12/06/1645 Results 24 hrs Laboratory Tests Test 12/06/16 05:45 Alanine Aminotransferase (ALT/SGPT) 33 Albumin 1.9 #L Albumin/Globulin Ratio 0.86 Alkaline Phosphatase 74 Anion Gap 10 # Aspartate Amino Transf (AST/SGOT) 33 Band Neutrophils % 5.0 Basophils # 0.1 Basophils % 3.0 H Blood Morphology Comment Blood Urea Nitrogen 20 Calcium Level 7.7 L Carbon Dioxide Level 22 Chloride Level 108 Creatinine 1.00 Direct Bilirubin 0.00 Eosinophils # 0.1 Eosinophils % 2.0 Globulin 2.20 Glucose Level 85 Hematocrit 25.2 #L Hemoglobin 8.0 #L Hemoglobin A1c 5.6 INR International Normalized Ratio 0.98 Indirect Bilirubin 0.0 Lipase 220 Lymphocytes # 1.1 Lymphocytes % 26.0 Magnesium Level 1.4 L Mean Corpuscular Hemoglobin 26.2 L Mean Corpuscular Hemoglobin Concent 31.7 L Mean Corpuscular Volume 82.6 Mean Platelet Volume 9.1 Monocytes # 0.1 L Monocytes % 3.0 Neutrophils # 2.7 Neutrophils % 61.0 Phosphorus Level 3.8 Platelet Count 217 # Potassium Level 3.2 L Prothrombin Time 13.0 Prothrombin Time Ratio 1.0 Random Cortisol 7.9 Red Blood Count 3.05 #L Red Cell Distribution Width 17.3 H Sodium Level 137 Thyroid Stimulating Hormone (TSH) 0.399 L Total Bilirubin 0.0 L Total Protein 4.1 #L White Blood Count 4.4 #L Medications Medications Current Medications Gabapentin (Neurontin) 300 mg TID PO Last administered on 12/06/16 13:33; Admin Dose 300 MG; Start 12/05/16 at 09:00 Hydromorphone HCl (Dilaudid) 1 mg Q3 PRN IV PAIN Last administered on 23:25; Admin Dose 1 MG; Start 12/04/16 at 22:00 Morphine Sulfate (morphine) 4 mg Q4H PRN IV PAIN Last administered on 10:01; Admin Dose 4 MG; Start 12/04/16 at 22:00 Ondansetron HCl (Zofran Inj) 4 mg Q6H PRN IV NAUSEA AND/OR VOMITING; Start at 22:00 Lacosamide (Vimpat Liq) 75 mg BID PO Last administered on 12/06/16 10:01; Admin Dose 75 MG; Start 12/05/16 at 10:30 Ketorolac Tromethamine (Toradol) 15 mg Q8 IV Last administered on 12/06/16 13: 33; Admin Dose 15 MG; Start 12/05/16 at 14:00; Stop 12/06/16 at 23:55 Pantoprazole Sodium (Protonix) 20 mg BID@06,18 PO Last administered on 06:12; Admin Dose 20 MG; Start 12/05/16 at 18:00 Miscellaneous Medication (Gi Cocktail (2)) 40 ml Q6 PRN PO HEARTBURN; Start at 12:30 Lorazepam (Ativan) 0.5 mg TID PO ; Start 12/06/16 at 21:00 JOEL ROSALES MD Dec 06, 2016 14:22
[2016-12-06] MEDS ORDERED: MAGNESIUM SULFATE 4 GM/100 ML 100 ML IVPB ONE (14:30)
--- NOTE | 2016-12-06 16:20 | PN ---
Date/Time of Note Date/Time of Note DATE: 12/06/16 TIME: 16:19 Assessment/Plan Lines/Catheters IV Catheter Type (from Nrsg): Peripheral IV Coughlin in Place (from Nrs): No Assessment/Plan Chief Complaint/Hosp Course IMPRESSION: Left pneumothorax status post chest tube. RECOMMENDATIONS: SP FALL , CT in Place will continue CT sxn Discussed with Dr. Hoover and the patient will continue chest tube suction at the present time and monitor hemoglobin levels. Problems: Subjective 24 Hr Interval Summary Constitutional: improved Pain Control: mild Exam/Review of Systems Vital Signs Vitals Vital Signs Date Time Temp Pulse Resp B/P Pulse Ox O2 Delivery O2 Flow Rate FiO2 12/06/16 15:10 98.5 68 20 93/55 98 12/06/16 00:09 3.0 12/05/16 20:39 Nasal Cannula 12/04/16 20:35 33 Intake and Output 12/05/16 12/05/16 12/06/16 15:00 23:00 07:00 Intake Total 1220 ml 400 ml Output Total 0 ml Balance 1220 ml 400 ml Exam Neck: non-tender, supple Respiratory: clear to auscultation, normal air movement Cardiovascular: nl pulses, regular rate and rhythm Gastrointestinal: nl liver, spleen, non-tender, soft Results Result Diagram: 12/06/16 0545 12/06/16 0545 EBONI BERGMAN MD Dec 06, 2016 16:20
[2016-12-06] MEDS: LORAZEPAM 0.5 MG TAB PO SCH (21:15)
--- NOTE | 2016-12-06 22:43 | RADRPT ---
Vent Rate: 92 bpm RR Interval: 0 msec ME Interval: 124 msec QRS Duration: 78 msec QT Interval: 354 msec QTC Interval: 437 msec P-R-T Darden: 57 - -4 - 72 degrees Normal sinus rhythm Nonspecific T wave abnormality Abnormal ECG Electronically Signed By: Gary Galvez [id number]
[2016-12-07] VITALS (12 sets, daily range): BP systolic 75–98; BP diastolic 50–61; PULSE 62–102; RESP 18–20
[2016-12-07] MEDS: PANTOPRAZOLE SODIUM 20 MG TABEC PO SCH ×2 (06:04→18:44)
[2016-12-07 07:22] LABS: HEMATOCRIT 26.6 % (37.0-47.0); HEMOGLOBIN 8.6 g/dl (12.0-16.0); MEAN CORPUSCULAR HEMOGLOBIN 26.7 pg (29.0-33.0); MEAN CORPUSCULAR HGB CONC 32.3 g/dl (32.0-37.0); MEAN CORPUSCULAR VOLUME 82.4 fl (82.0-101.0); MEAN PLATELET VOLUME 9.3 fl (7.4-10.4); PLATELET COUNT 239 10^3/UL (140-440); RED BLOOD COUNT 3.22 10^6/ul (4.20-5.40); RED CELL DISTRIBUTION WIDTH 16.6 % (11.5-14.5); UNCORRECTED WBC 3.3 10^3/ul (4.8-10.8); WHITE BLOOD COUNT 3.3 10^3/ul (4.8-10.8)
[2016-12-07 07:40] LABS: ALBUMIN 2.1 g/dl (3.3-4.9)
[2016-12-07 07:41] LABS: POTASSIUM 3.9 mmol/L (3.5-5.1)
[2016-12-07 07:43] LABS: ALBUMIN/GLOBULIN RATIO 0.77; CREATININE 0.9 mg/dl (0.44-1.00); TOTAL PROTEIN 4.8 g/dl (6.1-8.1)
[2016-12-07 07:44] LABS: CALCIUM 7.9 mg/dl (8.4-10.2); MAGNESIUM 2.5 mg/dl (1.7-2.5)
[2016-12-07 07:58] LABS: CONDITION 1; LH ANALYZER COMMENTS 1
[2016-12-07] MEDS: LORAZEPAM 0.5 MG TAB PO SCH ×3 (08:49→22:12)
[2016-12-07] MEDS: GABAPENTIN 300 MG CAP PO SCH ×3 (08:49→22:12)
[2016-12-07] MEDS: LACOSAMIDE (10 MG/ML PO SYG) PO SCH ×2 (08:49→22:12)
[2016-12-07] MEDS: HYDROmorphONE 1 MG/ML SYG IV PRN ×2 (10:26→19:49)
--- NOTE | 2016-12-07 12:37 | PN ---
Date/Time of Note Date/Time of Note DATE: 12/07/16 TIME: 12:33 Assessment/Plan VTE Prophylaxis VTE Prophylaxis Intervention: SCD's Lines/Catheters IV [facility] Type (from [facility] Saline Lock Urinary Cath still in place: No Assessment/Plan Assessment/Plan 1. Large left-sided pneumothorax after ground level fall injury status post placement of a chest tube with reexpansion of the left lung. follow up with surgery 2. Shortness of breath, secondary to above, improved. 3. Presumed acute kidney injury. 4. Elevated lipase, unclear significance, check amylase 5. History of left frontal lobe meningioma. 6. History of fibromyalgia. 7. Anemia, acute loss, follow up with CBC 8. Hypokalemia, KCL 9. Hypomagnesemia, Mg 10. Negative MRCP for CBD 11. Hypotension, chronic, asymptomatic Subjective 24 Hr Interval Summary Free Text/Dictation no shortness of breath no dizziness always has low blood pressure Exam/Review of Systems Vital Signs Vitals Vital Signs Date Time Temp Pulse Resp B/P Pulse Ox O2 Delivery O2 Flow Rate FiO2 12/07/16 12:07 80 12/07/16 11:27 98.1 20 98/51 100 12/06/16 21:20 2.0 12/06/16 20:39 Nasal Cannula 12/04/16 20:35 33 Intake and Output 12/06/16 12/06/16 12/07/16 15:00 23:00 07:00 Intake Total 700 ml 500 ml Output Total 20 ml 80 ml 110 ml Balance -20 ml 620 ml 390 ml Exam Constitutional: alert, oriented, well developed Psych: nl mood/affect, no complaints Head: atraumatic, normocephalic Eyes: EOMI, nl conjunctiva, nl lids ENMT: mucosa pink and moist, nl external ears & nose, nl lips & teeth, nl nasal mucosa & septum Neck: non-tender, supple Respiratory: clear to auscultation, normal air movement, other (left chest tube in situ), No congested cough, No crackles/rales, No diminished breath sounds, No intercostal retraction, No labored breathing, No respirations, No tactile fremitus, No wheezing Cardiovascular: nl pulses, regular rate and rhythm, No S3, No S4, No bruits, No diastolic murmur, No edema, No gallop, No irregular rhythm, No jugular venous distention (JVD), No murmurs/extra sounds, No rub, No systolic murmur Gastrointestinal: nl liver, spleen, non-tender, soft, No ascites, No bowel sounds, No distended, No firm, No hepatomegaly, No mass , No rebound or guarding, No splenomegaly, No surgical scars, No tender Musculoskeletal: nl extremities to inspection Neurological: WARP HAULER II-XII intact, nl mental status, nl speech, nl strength Skin: nl turgor, rash or lesions Lymph: nl lymph nodes Results Result Diagram: 12/07/1664812/07/16648 Results 24 hrs Laboratory Tests Test 12/07/16 06:49 Alanine Aminotransferase (ALT/SGPT) 34 Albumin 2.1 L Albumin/Globulin Ratio 0.77 Alkaline Phosphatase 87 Anion Gap 10 Aspartate Amino Transf (AST/SGOT) 30 Blood Morphology Comment Blood Urea Nitrogen 18 Calcium Level 7.9 L Carbon Dioxide Level 25 Chloride Level 107 Creatinine 0.90 Direct Bilirubin 0.00 Globulin 2.70 Glucose Level 84 Hematocrit 26.6 L Hemoglobin 8.6 L Indirect Bilirubin 0.0 Lipase 203 Magnesium Level 2.5 # Mean Corpuscular Hemoglobin 26.7 L Mean Corpuscular Hemoglobin Concent 32.3 Mean Corpuscular Volume 82.4 Mean Platelet Volume 9.3 Platelet Count 239 Potassium Level 3.9 Red Blood Count 3.22 L Red Cell Distribution Width 16.6 H Sodium Level 138 Total Bilirubin 0.0 L Total Protein 4.8 L White Blood Count 3.3 #L Medications Medications Current Medications Gabapentin (Neurontin) 300 mg TID PO Last administered on 12/07/16 08:49; Admin Dose 300 MG; Start 12/05/16 at 09:00 Hydromorphone HCl (Dilaudid) 1 mg Q3 PRN IV PAIN Last administered on 10:26; Admin Dose 1 MG; Start 12/04/16 at 22:00 Morphine Sulfate (morphine) 4 mg Q4H PRN IV PAIN Last administered on 16:44; Admin Dose 4 MG; Start 12/04/16 at 22:00 Ondansetron HCl (Zofran Inj) 4 mg Q6H PRN IV NAUSEA AND/OR VOMITING; Start at 22:00 Lacosamide (Vimpat Liq) 75 mg BID PO Last administered on 12/07/16 08:49; Admin Dose 75 MG; Start 12/05/16 at 10:30 Pantoprazole Sodium (Protonix) 20 mg BID@06,18 PO Last administered on 06:04; Admin Dose 20 MG; Start 12/05/16 at 18:00 Miscellaneous Medication (Gi Cocktail (2)) 40 ml Q6 PRN PO HEARTBURN; Start at 12:30 Lorazepam (Ativan) 0.5 mg TID PO Last administered on 12/07/16 08:49; Admin Dose 0.5 MG; Start 12/06/16 at 21:00 JOEL ROSALES MD Dec 07, 2016 12:37
[2016-12-07] MEDS: morphine 4 MG/ML VIAL IV PRN ×2 (14:53→18:43)
[2016-12-07 15:15] LABS: BASOPHIL # 0.1 10^3/ul (0.0-0.1); EOSINOPHILS # 0.1 10^3/ul (0.0-0.5); LYMPHOCYTES # 1.3 10^3/ul (0.8-2.9); MONOCYTE # 0.3 10^3/ul (0.3-0.9); NEUTROPHIL # 1.6 10^3/ul (1.6-7.5)
--- NOTE | 2016-12-07 16:09 | PN ---
Date/Time of Note Date/Time of Note DATE: 12/07/16 TIME: 16:09 Assessment/Plan Lines/Catheters IV Catheter Type (from Nrsg): Saline Lock Coughlin in Place (from Nrs): No Assessment/Plan Chief Complaint/Hosp Course IMPRESSION: Left pneumothorax status post chest tube. RECOMMENDATIONS: SP FALL , CT in Place CXR Stable left chest tube and trace left apical pneumothorax. Stable small left pleural effusion with associated basilar atelectasis/ infiltrate. will continue CT sxn Discussed with Dr. Hoover and the patient will continue chest tube suction at the present time and monitor hemoglobin levels. Problems: Subjective 24 Hr Interval Summary Constitutional: improved Pain Control: mild Exam/Review of Systems Vital Signs Vitals Vital Signs Date Time Temp Pulse Resp B/P Pulse Ox O2 Delivery O2 Flow Rate FiO2 12/07/16 16:08 89 12/07/16 15:19 97.8 20 91/61 97 12/07/16 07:45 Nasal Cannula 2.0 12/04/16 20:35 33 Intake and Output 12/06/16 12/06/16 12/07/16 15:00 23:00 07:00 Intake Total 700 ml 500 ml Output Total 20 ml 80 ml 110 ml Balance -20 ml 620 ml 390 ml Exam ENMT: mucosa pink and moist, nl external ears & nose, nl lips & teeth, nl nasal mucosa & septum Neck: non-tender, supple Respiratory: clear to auscultation, normal air movement Cardiovascular: nl pulses, regular rate and rhythm Gastrointestinal: nl liver, spleen, non-tender, soft Results Result Diagram: 12/07/16 0649 12/07/16 0649 EBONI BERGMAN MD Dec 07, 2016 16:09
[2016-12-07] MEDS: MAGNESIUM HYDROXIDE 30ML CUP PO PRN (18:43)
[2016-12-08] VITALS (12 sets, daily range): BP systolic 87–115; BP diastolic 54–65; PULSE 93–99; RESP 17–18
[2016-12-08] MEDS: HYDROmorphONE 1 MG/ML SYG IV PRN ×6 (01:52→20:57)
[2016-12-08] MEDS: PANTOPRAZOLE SODIUM 20 MG TABEC PO SCH ×2 (05:53→18:20)
[2016-12-08 06:32] LABS: HEMATOCRIT 24.2 % (37.0-47.0); HEMOGLOBIN 7.9 g/dl (12.0-16.0); MEAN CORPUSCULAR HEMOGLOBIN 26.9 pg (29.0-33.0); MEAN CORPUSCULAR HGB CONC 32.5 g/dl (32.0-37.0); MEAN CORPUSCULAR VOLUME 82.8 fl (82.0-101.0); MEAN PLATELET VOLUME 8.9 fl (7.4-10.4); PLATELET COUNT 259 10^3/UL (140-440); RED BLOOD COUNT 2.92 10^6/ul (4.20-5.40); RED CELL DISTRIBUTION WIDTH 16.4 % (11.5-14.5); UNCORRECTED WBC 4.5 10^3/ul (4.8-10.8); WHITE BLOOD COUNT 4.5 10^3/ul (4.8-10.8)
[2016-12-08 06:39] LABS: CONDITION 1; LH ANALYZER COMMENTS 1
[2016-12-08 08:35] LABS: ANISOCYTOSIS 1+; BASOPHIL # 0.1 10^3/ul (0.0-0.1); EOSINOPHILS # 0.2 10^3/ul (0.0-0.5); HYPOCHROMASIA 2+; LYMPHOCYTES # 1.1 10^3/ul (0.8-2.9); MONOCYTE # 0.3 10^3/ul (0.3-0.9); NEUTROPHIL # 2.6 10^3/ul (1.6-7.5)
[2016-12-08] MEDS: GABAPENTIN 300 MG CAP PO SCH ×3 (09:19→20:57)
[2016-12-08] MEDS: LORAZEPAM 0.5 MG TAB PO SCH ×3 (09:19→20:58)
[2016-12-08] MEDS: MAGNESIUM HYDROXIDE 30ML CUP PO PRN (09:19)
[2016-12-08] MEDS: LACOSAMIDE (10 MG/ML PO SYG) PO SCH ×2 (09:19→20:58)
--- NOTE | 2016-12-08 13:24 | PN ---
Date/Time of Note Date/Time of Note DATE: 12/08/16 TIME: 13:22 Assessment/Plan VTE Prophylaxis VTE Prophylaxis Intervention: SCD's Lines/Catheters IV Catheter Type (from Nrs): Saline Lock Urinary Cath still in place: No Assessment/Plan Assessment/Plan 1. Large left-sided pneumothorax after ground level fall injury status post placement of a chest tube with reexpansion of the left lung. follow up with surgery 2. Shortness of breath, secondary to above, improved. 3. Presumed acute kidney injury. 4. History of left frontal lobe meningioma. 5. History of fibromyalgia. 6. Anemia, acute loss, iv iron supplement, follow up with CBC Subjective 24 Hr Interval Summary Free Text/Dictation pain at the site of chest tube, explained Exam/Review of Systems Vital Signs Vitals Vital Signs Date Time Temp Pulse Resp B/P Pulse Ox O2 Delivery O2 Flow Rate FiO2 12/08/16 12:30 99 12/08/16 12:05 97.4 17 104/58 97 12/08/16 00:04 2.0 12/07/16 20:00 Nasal Cannula 12/04/16 20:35 33 Intake and Output 12/07/16 12/07/16 12/08/16 15:00 23:00 07:00 Intake Total 2360 ml 400 ml Output Total 99 ml 50 ml Balance 2261 ml 350 ml Exam Constitutional: alert, oriented, well developed Psych: nl mood/affect, no complaints Head: atraumatic, normocephalic Eyes: EOMI, PERRL, nl conjunctiva, nl lids, nl sclera ENMT: mucosa pink and moist, nl external ears & nose, nl lips & teeth, nl nasal mucosa & septum Neck: non-tender, supple Respiratory: clear to auscultation, normal air movement, No congested cough, No crackles/rales, No diminished breath sounds, No intercostal retraction, No labored breathing, No respirations, No tactile fremitus, No wheezing Cardiovascular: nl pulses, regular rate and rhythm, No S3, No S4, No bruits, No diastolic murmur, No edema, No gallop, No irregular rhythm, No jugular venous distention (JVD), No murmurs/extra sounds, No rub, No systolic murmur Gastrointestinal: nl liver, spleen, non-tender, soft, No ascites, No bowel sounds, No distended, No firm, No hepatomegaly, No mass , No rebound or guarding, No splenomegaly, No surgical scars, No tender Musculoskeletal: nl extremities to inspection Extremities: normal pulses, No calf tenderness, No clubbing, No cyanosis, No edema, No palpable cord, No pitting pedal edema, No tenderness Neurological: REED MAN II-XII intact, nl mental status, nl speech, nl strength Skin: nl turgor, rash or lesions Lymph: nl lymph nodes Results Result Diagram: 12/08/16 0558 12/07/16 0649 Results 24 hrs Laboratory Tests Test 12/08/16 05:58 Anisocytosis 1+ Band Neutrophils % 1.0 Basophils # 0.1 Basophils % 2.0 Blood Morphology Comment Eosinophils # 0.2 Eosinophils % 4.0 Hematocrit 24.2 L Hemoglobin 7.9 L Hypochromasia 2+ Lymphocytes # 1.1 Lymphocytes % 24.0 Mean Corpuscular Hemoglobin 26.9 L Mean Corpuscular Hemoglobin Concent 32.5 Mean Corpuscular Volume 82.8 Mean Platelet Volume 8.9 Metamyelocytes # 0.0 Metamyelocytes % 1.0 H Monocytes # 0.3 Monocytes % 6.0 Myelocytes # 0.0 Myelocytes % 1.0 H Neutrophils # 2.6 Neutrophils % 58.0 Platelet Count 259 Reactive Lymphocytes % 3.0 Red Blood Count 2.92 L Red Cell Distribution Width 16.4 H White Blood Count 4.5 #L Medications Medications Current Medications Gabapentin (Neurontin) 300 mg TID PO Last administered on 12/08/16 09:19; Admin Dose 300 MG; Start 12/05/16 at 09:00 Hydromorphone HCl (Dilaudid) 1 mg Q3 PRN IV PAIN Last administered on 10:01; Admin Dose 1 MG; Start 12/04/16 at 22:00 Morphine Sulfate (morphine) 4 mg Q4H PRN IV PAIN Last administered on 18:43; Admin Dose 4 MG; Start 12/04/16 at 22:00 Ondansetron HCl (Zofran Inj) 4 mg Q6H PRN IV NAUSEA AND/OR VOMITING; Start at 22:00 Lacosamide (Vimpat Liq) 75 mg BID PO Last administered on 12/08/16 09:19; Admin Dose 75 MG; Start 12/05/16 at 10:30 Pantoprazole Sodium (Protonix) 20 mg BID@,18 PO Last administered on 05:53; Admin Dose 20 MG; Start 12/05/16 at 18:00 Miscellaneous Medication (Gi Cocktail (2)) 40 ml Q6 PRN PO HEARTBURN; Start at 12:30 Lorazepam (Ativan) 0.5 mg TID PO Last administered on 12/08/16 09:19; Admin Dose 0.5 MG; Start 12/06/16 at 21:00 Magnesium Hydroxide (Milk Of Mag) 30 ml DAILY PRN PO CONSTIPATION Last administered on 12/08/16 09:19; Admin Dose 30 ML; Start 12/07/16 at 18:30 JOEL ROSALES MD Dec 08, 2016 13:24
[2016-12-08] MEDS: BISACODYL (EC) 5 MG TAB PO PRN (15:36)
[2016-12-08] MEDS: SOD FERRIC GLUC COMPLX 125 MG in SOD CHLORIDE 0.9% 100 ML IVPB SCH (17:34)
--- NOTE | 2016-12-08 18:11 | PN ---
Date/Time of Note Date/Time of Note DATE: 12/08/16 TIME: 18:10 Assessment/Plan Lines/Catheters IV Catheter Type (from Nrsg): Saline Lock Coughlin in Place (from Nrsg): No Assessment/Plan Chief Complaint/Hosp Course IMPRESSION: Left pneumothorax status post chest tube. RECOMMENDATIONS: SP FALL , CT in Place CXR Stable left chest tube and trace left apical pneumothorax. Stable small left pleural effusion with associated basilar atelectasis/ infiltrate. will place CT to water seal Check CXR tomorrow Problems: Subjective 24 Hr Interval Summary Constitutional: improved Pain Control: mild Exam/Review of Systems Vital Signs Vitals Vital Signs Date Time Temp Pulse Resp B/P Pulse Ox O2 Delivery O2 Flow Rate FiO2 12/08/16 16:22 98.3 95 17 96/55 95 12/08/16 07:40 Nasal Cannula 2.0 12/04/16 20:35 33 Intake and Output 12/07/16 12/07/16 12/08/16 15:00 23:00 07:00 Intake Total 2360 ml 400 ml Output Total 99 ml 50 ml Balance 2261 ml 350 ml Exam Neck: non-tender, supple Respiratory: clear to auscultation, normal air movement Cardiovascular: nl pulses, regular rate and rhythm Gastrointestinal: nl liver, spleen, non-tender, soft Results Result Diagram: 12/08/16 0558 12/07/16 0649 EBONI BERGMAN MD Dec 08, 2016 18:11
[2016-12-09] VITALS (11 sets, daily range): BP systolic 97–145; BP diastolic 52–81; PULSE 78–103; RESP 16–18
[2016-12-09] MEDS: HYDROmorphONE 1 MG/ML SYG IV PRN ×4 (02:04→17:51)
[2016-12-09] MEDS: PANTOPRAZOLE SODIUM 20 MG TABEC PO SCH ×2 (05:48→18:36)
[2016-12-09 06:57] LABS: BASOPHILS % 0.3 % (0.0-2.0); EOSINOPHILS # 0.1 10^3/ul (0.0-0.5); EOSINOPHILS % 2.5 % (0.0-7.0); HEMATOCRIT 23.7 % (37.0-47.0); HEMOGLOBIN 7.7 g/dl (12.0-16.0); LYMPHOCYTES % 18.8 % (15.0-51.0); MEAN CORPUSCULAR HEMOGLOBIN 26.7 pg (29.0-33.0); MEAN CORPUSCULAR HGB CONC 32.7 g/dl (32.0-37.0); MEAN CORPUSCULAR VOLUME 81.8 fl (82.0-101.0); MEAN PLATELET VOLUME 9.1 fl (7.4-10.4); MONOCYTE # 0.5 10^3/ul (0.3-0.9); MONOCYTES % 8.7 % (0.0-11.0); NEUTROPHIL # 3.7 10^3/ul (1.6-7.5); NEUTROPHILS % 69.7 % (39.0-77.0); PLATELET COUNT 276 10^3/UL (140-440); RED BLOOD COUNT 2.89 10^6/ul (4.20-5.40); RED CELL DISTRIBUTION WIDTH 16.6 % (11.5-14.5); UNCORRECTED WBC 5.4 10^3/ul (4.8-10.8); WHITE BLOOD COUNT 5.4 10^3/ul (4.8-10.8)
[2016-12-09 07:08] LABS: CONDITION 1; LH ANALYZER COMMENTS 1
[2016-12-09 07:33] LABS: POTASSIUM 4.5 mmol/L (3.5-5.1)
[2016-12-09 07:36] LABS: CREATININE 0.7 mg/dl (0.44-1.00)
[2016-12-09 07:37] LABS: CALCIUM 7.7 mg/dl (8.4-10.2)
[2016-12-09] MEDS: morphine 4 MG/ML VIAL IV PRN ×3 (07:41→21:17)
[2016-12-09] MEDS: GABAPENTIN 300 MG CAP PO SCH ×3 (08:30→21:13)
[2016-12-09] MEDS: LORAZEPAM 0.5 MG TAB PO SCH ×3 (08:31→21:13)
[2016-12-09] MEDS: LACOSAMIDE (10 MG/ML PO SYG) PO SCH ×2 (09:29→21:00)
--- NOTE | 2016-12-09 11:52 | PN ---
Date/Time of Note Date/Time of Note DATE: 12/09/16 TIME: 11:51 Assessment/Plan Lines/Catheters IV Catheter Type (from Nrsg): Saline Lock Coughlin in Place (from Nrsg): No Assessment/Plan Chief Complaint/Hosp Course IMPRESSION: Left pneumothorax status post chest tube. RECOMMENDATIONS: SP FALL , CT in Place CXR Stable left chest tube and trace left apical pneumothorax. Stable small left pleural effusion with associated basilar atelectasis/ infiltrate. will DC CT Check CXR tomorrow Problems: Subjective 24 Hr Interval Summary Constitutional: improved Pain Control: mild Exam/Review of Systems Vital Signs Vitals Vital Signs Date Time Temp Pulse Resp B/P Pulse Ox O2 Delivery O2 Flow Rate FiO2 12/09/16 11:49 100.2 96 18 102/56 96 12/09/16 07:29 Nasal Cannula 2.0 Intake and Output 12/08/16 12/08/16 12/09/16 15:00 23:00 07:00 Intake Total 910 ml 700 ml Output Total 60 ml 30 ml Balance 850 ml 670 ml Exam ENMT: mucosa pink and moist, nl external ears & nose, nl lips & teeth, nl nasal mucosa & septum Neck: non-tender, supple Respiratory: clear to auscultation, normal air movement Cardiovascular: nl pulses, regular rate and rhythm Results Result Diagram: 12/09/16 0555 12/09/16 0555 EBONI BERGMAN MD Dec 09, 2016 11:51
--- NOTE | 2016-12-09 14:14 | PN ---
Date/Time of Note Date/Time of Note DATE: 12/09/16 TIME: 14:13 Assessment/Plan VTE Prophylaxis VTE Prophylaxis Intervention: SCD's Lines/Catheters IV Catheter Type (from Nrs): Saline Lock Urinary Cath still in place: No Assessment/Plan Assessment/Plan 1. Large left-sided pneumothorax after ground level fall injury status post placement of a chest tube with reexpansion of the left lung. chest tube removed on 12/09/2016, follow up with surgery 2. Shortness of breath, secondary to above, improved. 3. Presumed acute kidney injury. 4. History of left frontal lobe meningioma. 5. History of fibromyalgia. 6. Anemia, acute loss, iv iron supplement, follow up with CBC Subjective 24 Hr Interval Summary Free Text/Dictation chest tube is out today. no shortness of breath Exam/Review of Systems Vital Signs Vitals Vital Signs Date Time Temp Pulse Resp B/P Pulse Ox O2 Delivery O2 Flow Rate FiO2 12/09/16 12:32 90 12/09/16 11:49 100.2 18 102/56 96 12/09/16 07:29 Nasal Cannula 2.0 Intake and Output 12/08/16 12/08/16 12/09/16 15:00 23:00 07:00 Intake Total 910 ml 700 ml Output Total 60 ml 30 ml Balance 850 ml 670 ml Exam Constitutional: alert, oriented, well developed Psych: nl mood/affect, no complaints Head: atraumatic, normocephalic Eyes: EOMI, PERRL, nl conjunctiva, nl lids ENMT: nl external ears & nose, nl lips & teeth, nl nasal mucosa & septum Neck: non-tender, supple Respiratory: clear to auscultation, normal air movement, No congested cough, No crackles/rales, No diminished breath sounds, No intercostal retraction, No labored breathing, No respirations, No tactile fremitus, No wheezing Cardiovascular: nl pulses, regular rate and rhythm, No S3, No S4, No bruits, No diastolic murmur, No edema, No gallop, No irregular rhythm, No jugular venous distention (JVD), No murmurs/extra sounds, No rub, No systolic murmur Gastrointestinal: nl liver, spleen, non-tender, soft, No ascites, No bowel sounds, No distended, No firm, No hepatomegaly, No mass , No rebound or guarding, No splenomegaly, No surgical scars, No tender Musculoskeletal: nl extremities to inspection Extremities: normal pulses 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, nl mental status, nl speech, nl strength Skin: nl turgor, rash or lesions Lymph: nl lymph nodes Results Result Diagram: 12/09/1655 12/09/16 0555 Results 24 hrs Laboratory Tests Test 12/09/16 05:55 Anion Gap 8 Basophils # 0.0 Basophils % 0.3 Blood Morphology Comment Blood Urea Nitrogen 13 Calcium Level 7.7 L Carbon Dioxide Level 33 H Chloride Level 98 Creatinine 0.70 Eosinophils # 0.1 Eosinophils % 2.5 Glucose Level 74 Hematocrit 23.7 L Hemoglobin 7.7 L Lymphocytes # 1.0 Lymphocytes % 18.8 Mean Corpuscular Hemoglobin 26.7 L Mean Corpuscular Hemoglobin Concent 32.7 Mean Corpuscular Volume 81.8 L Mean Platelet Volume 9.1 Monocytes # 0.5 Monocytes % 8.7 Neutrophils # 3.7 Neutrophils % 69.7 Nucleated Red Blood Cells # 0.0 Nucleated Red Blood Cells % 0.0 Platelet Count 276 Potassium Level 4.5 Red Blood Count 2.89 L Red Cell Distribution Width 16.6 H Sodium Level 134 L White Blood Count 5.4 Medications Medications Current Medications Gabapentin (Neurontin) 300 mg TID PO Last administered on 12/09/16 12:04; Admin Dose 300 MG; Start 12/05/16 at 09:00 Hydromorphone HCl (Dilaudid) 1 mg Q3 PRN IV PAIN Last administered on 09:52; Admin Dose 1 MG; Start 12/04/16 at 22:00 Morphine Sulfate (morphine) 4 mg Q4H PRN IV PAIN Last administered on 12:14; Admin Dose 4 MG; Start 12/04/16 at 22:00 Ondansetron HCl (Zofran Inj) 4 mg Q6H PRN IV NAUSEA AND/OR VOMITING; Start at 22:00 Lacosamide (Vimpat Liq) 75 mg BID PO Last administered on 12/09/16 09:29; Admin Dose 75 MG; Start 12/05/16 at 10:30 Pantoprazole Sodium (Protonix) 20 mg BID@06,18 PO Last administered on 05:48; Admin Dose 20 MG; Start 12/05/16 at 18:00 Miscellaneous Medication (Gi Cocktail (2)) 40 ml Q6 PRN PO HEARTBURN; Start at 12:30 Lorazepam (Ativan) 0.5 mg TID PO Last administered on 12/09/16 12:04; Admin Dose 0.5 MG; Start 12/06/16 at 21:00 Magnesium Hydroxide 30 ml 30 ml DAILY PRN PO CONSTIPATION Last administered on 12/08/16 09:19; Admin Dose 30 ML; Start 12/07/16 at 18:30 Ferric Sodium Gluconate Complex/ Sodium Chloride (Ferrlecit/NS) 110 ml @ 100 mls/hr Q24H IVPB Last administered on 12/08/16 17:34; Admin Dose 100 MLS/HR; Start 12/08/16 at 16:00; Stop 12/10/16 at 17:05 Bisacodyl (Dulcolax) 10 mg DAILY PRN PO CONSTIPATION Last administered on 15:36; Admin Dose 10 MG; Start 12/08/16 at 14:00 JOEL ROSALES MD Dec 09, 2016 14:14
[2016-12-09 14:40] LABS: EOSINOPHILS # 0.1 10^3/ul (0.0-0.5); EOSINOPHILS % 1.9 % (0.0-7.0); HEMATOCRIT 24.8 % (37.0-47.0); LYMPHOCYTES # 0.8 10^3/ul (0.8-2.9); LYMPHOCYTES % 12.6 % (15.0-51.0); MEAN CORPUSCULAR HEMOGLOBIN 26.7 pg (29.0-33.0); MEAN CORPUSCULAR HGB CONC 32.4 g/dl (32.0-37.0); MEAN CORPUSCULAR VOLUME 82.3 fl (82.0-101.0); MEAN PLATELET VOLUME 8.8 fl (7.4-10.4); MONOCYTE # 0.6 10^3/ul (0.3-0.9); MONOCYTES % 9.3 % (0.0-11.0); NEUTROPHIL # 4.7 10^3/ul (1.6-7.5); NEUTROPHILS % 76.2 % (39.0-77.0); PLATELET COUNT 251 10^3/UL (140-440); RED BLOOD COUNT 3.01 10^6/ul (4.20-5.40); RED CELL DISTRIBUTION WIDTH 17.2 % (11.5-14.5); UNCORRECTED WBC 6.2 10^3/ul (4.8-10.8); WHITE BLOOD COUNT 6.2 10^3/ul (4.8-10.8)
[2016-12-09 14:49] LABS: CONDITION 1; LH ANALYZER COMMENTS 1
[2016-12-09] MEDS: SOD FERRIC GLUC COMPLX 125 MG in SOD CHLORIDE 0.9% 100 ML IVPB SCH (15:57)
--- NOTE | 2016-12-09 19:01 | RADRPT ---
PROCEDURE: XR Chest. CLINICAL INDICATION: The patient is status post removal of left chest tube. TECHNIQUE: Single frontal view of the chest. COMPARISON: Plain film chest dated 12/06/[address] chest dated 12/05/2016. FINDINGS: Interval removal of left chest tube. The heart and mediastinum are within normal limits. New patchy air space disease versus small pleural effusion at the right costophrenic angle. Increased left pleural effusion and left lung base atelectasis. Left apical pleural capping is seen . Previously seen left hydropneumothorax on CT examination dated 12/05/2016 is not appreciated on this series. There is no pleural effusion or pneumothorax. IMPRESSION: 1. Left pleural effusion again seen, with left apical pleural capping. 2. No evident left hydro pneumothorax status post removal of left chest tube. 3. New mild right pleural effusion versus airspace disease at the right costophrenic angle. RPTAT: [facility] Physician Simeon Date Time Electronically viewed and signed by Physician Simeon on 12/09/2016 19:01 JACK/
[2016-12-09] MEDS: ACETAMINOPHEN 325 MG TAB PO PRN (21:13)
[2016-12-10] MEDS: morphine 4 MG/ML VIAL IV PRN ×4 (03:46→17:27)
[2016-12-10] MEDS: PANTOPRAZOLE SODIUM 20 MG TABEC PO SCH ×2 (06:07→17:23)
[2016-12-10] MEDS: MAGNESIUM HYDROXIDE 30ML CUP PO PRN (06:12)
[2016-12-10 07:46] VITALS: BP 101/59; RESP 18
[2016-12-10] MEDS: GABAPENTIN 300 MG CAP PO SCH ×3 (08:23→20:32)
[2016-12-10] MEDS: LORAZEPAM 0.5 MG TAB PO SCH ×3 (08:24→20:32)
--- NOTE | 2016-12-10 08:27 | PN ---
Date/Time of Note Date/Time of Note DATE: 12/10/16 TIME: 08:26 Assessment/Plan Lines/Catheters IV Catheter Type (from Nrsg): Saline Lock Coughlin in Place (from Nrsg): No Assessment/Plan Chief Complaint/Hosp Course IMPRESSION: Left pneumothorax status post chest tube. RECOMMENDATIONS: SP FALL , CT in Place CXR IMPRESSION: 1. Left pleural effusion again seen, with left apical pleural capping. 2. No evident left hydro pneumothorax status post removal of left chest tube. 3. New mild right pleural effusion versus airspace disease at the right costophrenic angle. Check CXR tomorrow Problems: Subjective 24 Hr Interval Summary Constitutional: improved Pain Control: mild Exam/Review of Systems Vital Signs Vitals Vital Signs Date Time Temp Pulse Resp B/P Pulse Ox O2 Delivery O2 Flow Rate FiO2 12/10/16 07:46 98.6 92 18 101/59 96 12/09/16 20:00 2.0 12/09/16 17:55 Nasal Cannula Intake and Output 12/09/16 12/09/16 12/10/16 15:00 23:00 07:00 Intake Total 910 ml 400 ml Output Total 40 ml Balance -40 ml 910 ml 400 ml Exam Neck: non-tender, supple Respiratory: clear to auscultation, normal air movement Cardiovascular: nl pulses, regular rate and rhythm Gastrointestinal: nl liver, spleen, non-tender, soft Results Result Diagram: 12/09/16 1430 12/09/16 0555 EBONI BERGMAN MD Dec 10, 2016 08:27
[2016-12-10] MEDS: HYDROmorphONE 1 MG/ML SYG IV PRN ×4 (09:36→21:57)
[2016-12-10] MEDS: LACOSAMIDE (10 MG/ML PO SYG) PO SCH ×2 (09:45→21:49)
[2016-12-10 14:19] LABS: ADD UMIC NO; URINE BILIRUBIN (Dip) NEGATIVE (NEGATIVE); URINE BLOOD (Dip) NEGATIVE (NEGATIVE); URINE COLOR LT. YELLOW (YELLOW); URINE GLUCOSE (Dip) NEGATIVE (NEGATIVE); URINE KETONES (Dip) NEGATIVE (NEGATIVE); URINE LEUKOCYTE ESTERASE (Dip) NEGATIVE (NEGATIVE); URINE NITRITE (Dip) NEGATIVE (NEGATIVE); URINE TOTAL PROTEIN (Dip) NEGATIVE (NEGATIVE); URINE UROBILINOGEN (Dip) 0.2 E.U./dL (0.1-1.0)
[2016-12-10] MEDS: ACETAMINOPHEN 325 MG TAB PO PRN (14:52)
[2016-12-10] MEDS: BISACODYL (EC) 5 MG TAB PO PRN (14:57)
--- NOTE | 2016-12-10 15:42 | PN ---
Date/Time of Note Date/Time of Note DATE: 12/10/16 TIME: 15:32 Assessment/Plan VTE Prophylaxis VTE Prophylaxis Intervention: SCD's Lines/Catheters IV [facility]from [facility] Saline Lock Urinary Cath still in place: No Assessment/Plan Assessment/Plan 1. Fever with positive blood culture, follow up with culture, ID consult 2. Large left-sided pneumothorax after ground level fall injury status post placement of a chest tube with reexpansion of the left lung. chest tube removed on 12/09/2016, stable 3. Presumed acute kidney injury. 4. History of left frontal lobe meningioma. 5. History of fibromyalgia. 6. Anemia, acute loss, s/p iv iron supplement, stable Subjective 24 Hr Interval Summary Free Text/Dictation fever 100.3 yesterday, blood culture taken on 12/09/2016 2/2 positive Exam/Review of Systems Vital Signs Vitals Vital Signs Date Time Temp Pulse Resp B/P Pulse Ox O2 Delivery O2 Flow Rate FiO2 12/10/16 12:44 2.0 12/10/16 07:46 98.6 92 18 101/59 96 12/09/16 17:55 Nasal Cannula Intake and Output 12/09/16 12/09/16 12/10/16 15:00 23:00 07:00 Intake Total 910 ml 400 ml Output Total 40 ml Balance -40 ml 910 ml 400 ml Exam Constitutional: alert, oriented, well developed Psych: nl mood/affect, no complaints Head: atraumatic, normocephalic Eyes: EOMI, PERRL, nl conjunctiva, nl lids, nl sclera ENMT: nl external ears & nose, nl lips & teeth, nl nasal mucosa & septum Neck: non-tender, supple Respiratory: clear to auscultation, normal air movement, other, No congested cough, No crackles/rales, No diminished breath sounds, No intercostal retraction, No labored breathing, No respirations, No tactile fremitus, No wheezing Cardiovascular: nl pulses, other, regular rate and rhythm, No S3, No S4, No bruits, No diastolic murmur, No edema, No gallop, No irregular rhythm, No jugular venous distention (JVD), No murmurs/extra sounds, No rub, No systolic murmur Gastrointestinal: nl liver, spleen, non-tender, soft, No ascites, No bowel sounds, No distended, No firm, No hepatomegaly, No mass , No rebound or guarding, No splenomegaly, No surgical scars, No tender Musculoskeletal: nl extremities to inspection Extremities: normal pulses Neurological: RESIDENTIAL APPRAISER II-XII intact, nl mental status, nl speech, nl strength Skin: nl turgor, rash or lesions Lymph: nl lymph nodes Results Result Diagram: 12/09/16 1430 12/09/16 0555 Results 24 hrs Laboratory Tests Test 12/10/16 03:15 Urine Bilirubin NEGATIVE Urine Clarity CLEAR Urine Color LT. YELLOW Urine Glucose NEGATIVE Urine Hemoglobin NEGATIVE Urine Ketones NEGATIVE Urine Leukocyte Esterase NEGATIVE Urine Nitrite NEGATIVE Urine Specific [place] 1.015 Urine Total Protein NEGATIVE Urine Urobilinogen 0.2 E.U./dL Urine pH 6.0 Medications Medications Current Medications Gabapentin (Neurontin) 300 mg TID PO Last administered on 12/10/16 14:52; Admin Dose 300 MG; Start 12/05/16 at 09:00 Hydromorphone HCl (Dilaudid) 1 mg Q3 PRN IV PAIN Last administered on 14:52; Admin Dose 1 MG; Start 12/04/16 at 22:00 Morphine Sulfate (morphine) 4 mg Q4H PRN IV PAIN Last administered on 12:41; Admin Dose 4 MG; Start 12/04/16 at 22:00 Ondansetron HCl (Zofran Inj) 4 mg Q6H PRN IV NAUSEA AND/OR VOMITING; Start at 22:00 Lacosamide (Vimpat Liq) 75 mg BID PO Last administered on 12/10/16 09:45; Admin Dose 75 MG; Start 12/05/16 at 10:30 Pantoprazole Sodium (Protonix) 20 mg BID@06,18 PO Last administered on 06:07; Admin Dose 20 MG; Start 12/05/16 at 18:00 Miscellaneous Medication (Gi Cocktail (2)) 40 ml Q6 PRN PO HEARTBURN; Start at 12:30 Lorazepam (Ativan) 0.5 mg TID PO Last administered on 12/10/16 14:52; Admin Dose 0.5 MG; Start 12/06/16 at 21:00 Magnesium Hydroxide 30 ml 30 ml DAILY PRN PO CONSTIPATION Last administered on 12/10/16 06:12; Admin Dose 30 ML; Start 12/07/16 at 18:30 Ferric Sodium Gluconate Complex/ Sodium Chloride (Ferrlecit/NS) 110 ml @ 100 mls/hr Q24H IVPB Last administered on 12/09/16 15:57; Admin Dose 100 MLS/HR; Start 12/08/16 at 16:00; Stop 12/10/16 at 17:05 Bisacodyl (Dulcolax) 10 mg DAILY PRN PO CONSTIPATION Last administered on 14:57; Admin Dose 10 MG; Start 12/08/16 at 14:00 Acetaminophen (Tylenol Tab) 650 mg Q6H PRN PO PAIN AND OR ELEVATED TEMP Last administered on 12/10/16 14:52; Admin Dose 650 MG; Start 12/09/16 at 20:30 JOEL ROSALES MD Dec 10, 2016 15:42
[2016-12-10] MEDS: SOD FERRIC GLUC COMPLX 125 MG in SOD CHLORIDE 0.9% 100 ML IVPB SCH (17:23)
[2016-12-10 20:10] VITALS: BP 99/54; RESP 18
[2016-12-11] MEDS: HYDROmorphONE 1 MG/ML SYG IV PRN ×6 (02:07→21:09)
[2016-12-11] MEDS: PANTOPRAZOLE SODIUM 20 MG TABEC PO SCH ×2 (05:38→17:44)
[2016-12-11] MEDS: MAGNESIUM HYDROXIDE 30ML CUP PO PRN (06:43)
[2016-12-11 07:40] VITALS: BP 117/69; RESP 18
[2016-12-11] MEDS: LORAZEPAM 0.5 MG TAB PO SCH ×3 (08:29→21:09)
[2016-12-11] MEDS: GABAPENTIN 300 MG CAP PO SCH ×3 (08:29→21:09)
[2016-12-11] MEDS: LACOSAMIDE (10 MG/ML PO SYG) PO SCH ×2 (09:19→21:31)
[2016-12-11 09:30] VITALS: PULSE 88
--- NOTE | 2016-12-11 10:21 | PN ---
Date/Time of Note Date/Time of Note DATE: 12/11/16 TIME: 10:12 Assessment/Plan VTE Prophylaxis VTE Prophylaxis Intervention: ambulation, SCD's Lines/Catheters IV Catheter Type (from Nrsg): Saline Lock Urinary Cath still in place: No Assessment/Plan Assessment/Plan 51 yo F s/p fall with Traumatic L sided pneumothorax * s/p Chest tube placement 12/05/16 * Chest tube removed ?12/09/16 Subcutaneous Emphysema from fall SIRS 2/2 above r/o developing PNA L sided Pleural effusion versus hemothorax Atrophic L kidney with preserved renal function Chronic non obstructing nephrolithiasis likely causing #5 + Bld culture likely contaminant Iron deficiency anemia s/p IV iron, on orals now PLAN: Repeat CXR to ensure all remains stable Patient is clinically stable for outpatient care with no further fever may be d/c after review of CXR. Subjective 24 Hr Interval Summary Free Text/Dictation Patient seen and examined. doing very well desires discharge denies SOB on room air Exam/Review of Systems Vital Signs Vitals Vital Signs Date Time Temp Pulse Resp B/P Pulse Ox O2 Delivery O2 Flow Rate FiO2 12/11/16 09:30 98.8 88 12/11/16 08:00 Nasal Cannula 2.0 12/11/16 07:40 18 117/69 92 Intake and Output 12/10/16 12/10/16 12/11/16 15:00 23:00 07:00 Intake Total 1030 ml 320 ml Balance 1030 ml 320 ml Exam Constitutional: alert, frail, oriented Psych: nl mood/affect Head: atraumatic, normocephalic Eyes: PERRL ENMT: No nl lips & teeth (poor dentition) Neck: non-tender, supple Respiratory: diminished breath sounds, wheezing (occ) Cardiovascular: nl pulses, regular rate and rhythm Gastrointestinal: bowel sounds, non-tender, soft Extremities: No edema Neurological: nl mental status, nl speech, No focal weakness Results Result Diagram: 12/09/16 1430 12/09/16 0555 Medications Medications Current Medications Gabapentin (Neurontin) 300 mg TID PO Last administered on 12/11/16 08:29; Admin Dose 300 MG; Start 12/05/16 at 09:00 Hydromorphone HCl (Dilaudid) 1 mg Q3 PRN IV PAIN Last administered on 09:19; Admin Dose 1 MG; Start 12/04/16 at 22:00 Morphine Sulfate (morphine) 4 mg Q4H PRN IV PAIN Last administered on 17:27; Admin Dose 4 MG; Start 12/04/16 at 22:00 Ondansetron HCl (Zofran Inj) 4 mg Q6H PRN IV NAUSEA AND/OR VOMITING; Start at 22:00 Lacosamide (Vimpat Liq) 75 mg BID PO Last administered on 12/11/16 09:19; Admin Dose 75 MG; Start 12/05/16 at 10:30 Pantoprazole Sodium (Protonix) 20 mg BID@06,18 PO Last administered on 05:38; Admin Dose 20 MG; Start 12/05/16 at 18:00 Miscellaneous Medication (Gi Cocktail (2)) 40 ml Q6 PRN PO HEARTBURN; Start at 12:30 Lorazepam (Ativan) 0.5 mg TID PO Last administered on 12/11/16 08:29; Admin Dose 0.5 MG; Start 12/06/16 at 21:00 Magnesium Hydroxide (Milk Of Mag) 30 ml DAILY PRN PO CONSTIPATION Last administered on 12/11/16 06:43; Admin Dose 30 ML; Start 12/07/16 at 18:30 Bisacodyl (Dulcolax) 10 mg DAILY PRN PO CONSTIPATION Last administered on 14:57; Admin Dose 10 MG; Start 12/08/16 at 14:00 Acetaminophen (Tylenol Tab) 650 mg Q6H PRN PO PAIN AND OR ELEVATED TEMP Last administered on 12/10/16 14:52; Admin Dose 650 MG; Start 12/09/16 at 20:30 Procedures Procedures PROCEDURE: XR Chest. CLINICAL INDICATION: The patient is status post removal of left chest tube. TECHNIQUE: Single frontal view of the chest. COMPARISON: Plain film chest dated 12/06/[address] chest dated 12/05/2016. FINDINGS: Interval removal of left chest tube. The heart and mediastinum are within normal limits. New patchy air space disease versus small pleural effusion at the right costophrenic angle. Increased left pleural effusion and left lung base atelectasis. Left apical pleural capping is seen. Previously seen left hydropneumothorax on CT examination dated 12/05/2016 is not appreciated on this series. There is no pleural effusion or pneumothorax. IMPRESSION: 1. Left pleural effusion again seen, with left apical pleural capping. 2. No evident left hydro pneumothorax status post removal of left chest tube. 3. New mild right pleural effusion versus airspace disease at the right costophrenic angle. RPTAT: [facility] Ana Mendez Physician Date Time Electronically viewed and signed by Ana Mendez Physician on 12/09/2016 19:01 RS/ CC: EBONI BERGMAN MD, BOLATITO M. Dec 11, 2016 10:21
--- NOTE | 2016-12-11 10:33 | CONS ---
Date/Time of Note Date/Time of Note DATE: 12/11/16 TIME: 10:33 Assessment/Plan Assessment/Plan Chief Complaint/Hosp Course D PROGRESS NOTE TOTAL ABX DAY #OFF ABX => Start Vanco IV + Ceftriaxone today 24H INTERVAL SUMMARY * Overall has improved from standpoint of acute SOB from traumatic PTx, walked in halls today * Low grade temps on and off since admission / pain from fall ongoing * MICRO: BCX (+) GPC - suspect contaminant URINE CULTURE Preliminary Organism 1 GRAM NEGATIVE BERNICE COLONY COUNT >100,000 CFU/ml PHYSICAL EXAMINATION: GENERAL: 51 yo F, A/A/O VSS, NAD HEENT: Unremarkable NECK: Supple, trachea midline. CHEST: Equal chest rise bilaterally, without dyspnea on observation HEART: Pulse RRR ABDOMEN: Soft EXTREMITIES: Warm SKIN: See photos ID ASSESSMENT: 51 yo F PMHx Left Frontal Meningioma + Fibromyalgia admit with: 1. Large left-sided pneumothorax after ground level fall injury status post placement of a chest tube with reexpansion of the left lung. * CT w/Moderate left pleural effusion, slightly increased when compared to 12/09. * s/p Chest tube placement 12/05/16 -> CT removed ~ 12/09/16 * Subcutaneous Emphysema from fall due to PTx * L sided Pleural effusion versus hemothorax -> ? developing PNA ? 2. Acute Shortness of breath on admission 2/2 PTx resolved 3. Sepsis vs probably SIRS w/low grade temperatures 99.+ - 100.+ * BCx on admission 2/2 bottles (+)GPC seen on gram stain w/1/2 bottles (+)GPC = > Possible skin contaminant vs true BLOOD CULTURE Preliminary BCULT GRAM BOTTLE 1 Gram positive cocci in clusters 2 of 2 bottles . seen on gram stain of the broth Organism 1 GRAM POSITIVE COCCI IN CLUSTER 4. GNR UTI URINE CULTURE Preliminary Organism 1 GRAM NEGATIVE BERNICE COLONY COUNT >100,000 CFU/ml 5. Dilated common bile duct with elevated lipase, questionable gallstone pancreatitis. 6. Presumed acute kidney injury on admission = resolved /CT reveals left atrophic kidney w/ recovered renal fx * Non-obstructing renal calculi 7. Iron deficiency anemia s/p IV iron, on orals now ( )MRSA Nares ->N/A INVASIVES: ABX ALLERGY: KNDA CURRENT ABX: TOTAL ABX DAY # START Ceftriaxone + Vanco IV ID RECOMMENDATIONS: 1.Pt with SIRS and persistent low grade temps since admission with left effusion vs hemothorax, (+)GNR UTI 2. START empiric ABX today and wait for Micro results: # START Ceftriaxone + Vanco IV . Problems: Consultation Date/Type/Reason Admit Date/Time Dec 04, 2016 at 20:35 Initial Consult Date Exam/Review of Systems Vital Signs Vitals Vital Signs Date Time Temp Pulse Resp B/P Pulse Ox O2 Delivery O2 Flow Rate FiO2 12/11/16 09:30 98.8 88 12/11/16 08:00 Nasal Cannula 2.0 12/11/16 07:40 18 117/69 92 Intake and Output 12/10/16 12/10/16 12/11/16 15:00 23:00 07:00 Intake Total 1030 ml 320 ml Balance 1030 ml 320 ml Results Result Diagram: 12/09/16 1430 12/09/16 0555 Medications Medications Current Medications Gabapentin (Neurontin) 300 mg TID PO Last administered on 12/11/16 08:29; Admin Dose 300 MG; Start 12/05/16 at 09:00 Hydromorphone HCl (Dilaudid) 1 mg Q3 PRN IV PAIN Last administered on 09:19; Admin Dose 1 MG; Start 12/04/16 at 22:00 Morphine Sulfate (morphine) 4 mg Q4H PRN IV PAIN Last administered on 17:27; Admin Dose 4 MG; Start 12/04/16 at 22:00 Ondansetron HCl (Zofran Inj) 4 mg Q6H PRN IV NAUSEA AND/OR VOMITING; Start at 22:00 Lacosamide (Vimpat Liq) 75 mg BID PO Last administered on 12/11/16 09:19; Admin Dose 75 MG; Start 12/05/16 at 10:30 Pantoprazole Sodium (Protonix) 20 mg BID@06,18 PO Last administered on 05:38; Admin Dose 20 MG; Start 12/05/16 at 18:00 Miscellaneous Medication (Gi Cocktail (2)) 40 ml Q6 PRN PO HEARTBURN; Start at 12:30 Lorazepam (Ativan) 0.5 mg TID PO Last administered on 12/11/16 08:29; Admin Dose 0.5 MG; Start 12/06/16 at 21:00 Magnesium Hydroxide (Milk Of Mag) 30 ml DAILY PRN PO CONSTIPATION Last administered on 12/11/16 06:43; Admin Dose 30 ML; Start 12/07/16 at 18:30 Bisacodyl (Dulcolax) 10 mg DAILY PRN PO CONSTIPATION Last administered on 14:57; Admin Dose 10 MG; Start 12/08/16 at 14:00 Acetaminophen (Tylenol Tab) 650 mg Q6H PRN PO PAIN AND OR ELEVATED TEMP Last administered on 12/10/16 14:52; Admin Dose 650 MG; Start 12/09/16 at 20:30 AYDEN VALVERDE NP Dec 11, 2016 10:33
[2016-12-11] MEDS ORDERED: ALBU90AE INHALATION (10:38)
[2016-12-11] MEDS ORDERED: HYDR-906 PO (10:39)
[2016-12-11] MEDS ORDERED: DOCU-144 PO (10:41)
--- NOTE | 2016-12-11 15:38 | RADRPT ---
PROCEDURE: Chest xray. CLINICAL INDICATION: Evaluate for pneumothorax. TECHNIQUE: Upright PA and lateral views of the chest were obtained. COMPARISON: 12/09/2016 FINDINGS: The cardiomediastinal silhouette is within normal limits. Pulmonary vascularity is within normal son its. There is a moderate left pleural effusion, slightly increased when compared to 12/09/2016. The re is a stable small right pleural effusion. Bilateral lower lung zone atelectasis, left greater th an right, remains. There is a stable small left apical pneumothorax. The skeletal structures and s oft tissues are unremarkable. IMPRESSION: Stable small left pneumothorax. Moderate left pleural effusion, slightly increased when compared to 12/09/2016. Stable small right pleural effusion. Bilateral lower lung zone atelectasis, left greater than right. RPTAT:PP .Tayler Snow MD, Date Time Electronically viewed and signed by .Tayler Snow MD, on 12/11/2016 15:32 .K/
--- NOTE | 2016-12-11 16:11 | PN ---
Date/Time of Note Date/Time of Note DATE: 12/11/16 TIME: 16:09 Assessment/Plan Lines/Catheters IV Catheter Type (from Nrsg): Saline Lock [place] in Place (from Nrsg): No Assessment/Plan Chief Complaint/Hosp Course IMPRESSION: Left pneumothorax status post chest tube. RECOMMENDATIONS: SP FALL , CT in Place CXR IMPRESSION: Stable small left pneumothorax. Moderate left pleural effusion, slightly increased when compared to 12/09/2016. Stable small right pleural effusion. Bilateral lower lung zone atelectasis, left greater than right. May need thorocentesis Check CXR tomorrow Problems: Subjective 24 Hr Interval Summary Pain Control: mild Exam/Review of Systems Vital Signs Vitals Vital Signs Date Time Temp Pulse Resp B/P Pulse Ox O2 Delivery O2 Flow Rate FiO2 12/11/16 09:30 98.8 88 12/11/16 08:00 Nasal Cannula 2.0 12/11/16 07:40 18 117/69 92 Intake and Output 12/10/16 12/10/16 12/11/16 15:00 23:00 07:00 Intake Total 1030 ml 320 ml Balance 1030 ml 320 ml Exam Neck: non-tender, supple Respiratory: clear to auscultation, normal air movement Cardiovascular: nl pulses, regular rate and rhythm Gastrointestinal: nl liver, spleen, non-tender, soft Results Result Diagram: 12/09/16 1430 12/09/16 0555 EBONI BERGMAN MD Dec 11, 2016 16:10
[2016-12-11] MEDS ORDERED: VANCOMYCIN IV PER PHARMACY XX SCH (16:30)
[2016-12-11] MEDS: CEFTRIAXONE 500 MG in SOD CHLORIDE 0.9% 50 ML IVPB SCH (17:39)
[2016-12-11] MEDS: morphine 4 MG/ML VIAL IV PRN (18:27)
[2016-12-11] MEDS: VANCOMYCIN 1 GM in NS 250 ML IVPB SCH (18:31)
[2016-12-11] MEDS ORDERED: FOSFOMYCIN 3 GM PACKET PO ONE (20:00)
[2016-12-11 20:26] VITALS: BP 110/59; RESP 18
[2016-12-12] MEDS: HYDROmorphONE 1 MG/ML SYG IV PRN ×9 (00:32→23:24)
[2016-12-12] MEDS: PANTOPRAZOLE SODIUM 20 MG TABEC PO SCH ×2 (05:19→18:30)
[2016-12-12] MEDS: morphine 4 MG/ML VIAL IV PRN ×2 (05:36→22:20)
--- NOTE | 2016-12-12 06:47 | CONS ---
DATE OF ADMISSION: 12/04/2016 DATE OF CONSULTATION: 12/10/2016 INFECTIOUS CONSULTATION REASON FOR CONSULTATION: Antibiotic management. HISTORY OF PRESENT ILLNESS: The patient, Cesilia Mooney, is a 51-year-old female with a history of fr ontal lobe meningioma who comes in with a fall, pain, and shortness of breath. PAST PROBLEMS: Include 1. Frontal lobe meningioma. 2. Fibromyalgia. 3. Anxiety. 4. Cholecystectomy. She presented to the emergency room after she had a ground-level fall, sustaining severe pain to her left rib cage. She tripped over a shoe, causing her fall. She did not lose consciousness or have seizure activity. In the emergency room, she was tachycardic. Chest x-ray showed a total left pneu mothorax, as well as left 7th posterior rib fracture. A chest tube was placed. Repeat chest x-ray showed reexpansion of the left lung. CT scan of the brain was done; it showed calcified dural based meningioma in the left frontal lobe with localized mass effect and no evidence of edema. A CT scan of the abdomen and pelvis showed large left hydropneumothorax without associated collapse of the vi sualized left lung. Also, incidentally, prominence of the biliary tree with common bile duct measur ing up to 9 mm in diameter was noted, which may be related to reservoir effect, given the surgical a bsence of the gallbladder. She also had severely atrophic left kidney. Shoulder x-ray was unremark able for left shoulder abnormality. On admission, her white count was 6.1, H and H were 13.1 and 41 .2, platelet count is 330,000. On the , the white count was 6.2. Her BUN and creatinine were 1 7/1.3. A urine was negative for nitrite and leukocyte esterase. She had a CT scan of the chest, wh ich was done after the surgical chest tube was placed, and showed a small residual left pneumothorax in the patient with a cervical chest tube. Abdominal pelvis CT was done before the large left-side d pneumothorax. An abdominal MRI was done on the that showed benign hepatic cyst, status post cholecystectomy, normal common bile duct and pancreatic duct, atrophic left kidney. Her chest x-ray today shows stable small left pneumothorax, and moderate left pleural effusion, slightly incr eased when compared to 12/09/2016, and stable small right pleural effusion, and bilateral lower lung zone atelectasis, left greater than right. Her blood on the , 1 out of 2, grew gram-positive c occi in clusters, and her urine grew out gram-negative rods from the . PAST MEDICAL HISTORY: Operations as outlined. FAMILY HISTORY: Noncontributory. SOCIAL HISTORY: She does not smoke, drink, or abuse drugs. ALLERGIES: NONE TO PENICILLIN, SULFA, OR FOODS. MEDICATIONS: Per chart. REVIEW OF SYSTEMS: As per HPI. PHYSICAL EXAMINATION GENERAL: The patient is a well developed, well-nourished female who is alert, responsive, in no acu te distress. VITAL SIGNS: Stable. She is afebrile. SKIN: Without generalized rash. HEAD, EARS, EYES, NOSE, AND THROAT: Within normal limits. NECK: Supple. LYMPH NODES: None palpable. LUNGS: Decreased breath sounds at the bases. HEART: Without murmur or gallop. ABDOMEN: Soft, nontender, without organosplenomegaly or masses. EXTREMITIES: Without cyanosis, clubbing, or edema. RECTAL AND GENITAL: Exams deferred. NEUROLOGICAL: No focal neurological abnormality. She had a chest tube placed. She may need ongoing thoracentesis. The chest tube was removed, I bel ieve, on the . We are starting her on vancomycin and ceftriaxone. We will await her culture re ports. I will dictate my findings to the hospitalists and Dr. Steele and and Dr. Ignacio, the hospitalist. Dictated By: VANDANA WAKEFIELD MD, JD/NICOLE Conf#: [id number] DID#: [id number]
[2016-12-12 08:07] VITALS: BP 104/62; RESP 16
[2016-12-12] MEDS: MAGNESIUM HYDROXIDE 30ML CUP PO PRN (09:05)
[2016-12-12] MEDS: LORAZEPAM 0.5 MG TAB PO SCH ×3 (09:05→21:23)
[2016-12-12] MEDS: GABAPENTIN 300 MG CAP PO SCH ×3 (09:05→21:23)
[2016-12-12] MEDS: LACOSAMIDE (10 MG/ML PO SYG) PO SCH ×2 (10:05→21:23)
--- NOTE | 2016-12-12 15:29 | PN ---
Date/Time of Note Date/Time of Note DATE: 12/12/16 TIME: 15:22 Assessment/Plan VTE Prophylaxis VTE Prophylaxis Intervention: ambulation, SCD's Lines/Catheters IV Catheter Type (from [facility]): Saline Lock Urinary Cath still in place: No Assessment/Plan Assessment/Plan 51 yo F s/p fall with Traumatic L sided pneumothorax * s/p Chest tube placement 12/05/16 * Chest tube removed ?12/09/16 Post traumatic L sided Pleural effusion versus hemothorax * Persistent effusion + Low hgb concerning for hemothorax Subcutaneous Emphysema from fall: resolved Sepsis likely 2/2 bacteremia and UTI: resolved Atrophic L kidney with preserved renal function Chronic non obstructing nephrolithiasis likely causing above MRSA bacteremia Ecoli / Staph aureus UTI Iron deficiency anemia * s/p IV iron, on orals now PLAN: Appreciate Pulm review and management We will repeat CXR tomorrow. If findings are stable and hgb remains stable as well, patient may be d/c if cleared by ID Continue IV abx per ID F/u repeat blood cultures Continue supportive care Subjective 24 Hr Interval Summary Free Text/Dictation Patient seen and examined. She continues to feel well , denies SOB, denies CP Really wants to go home Exam/Review of Systems Vital Signs Vitals Vital Signs Date Time Temp Pulse Resp B/P Pulse Ox O2 Delivery O2 Flow Rate FiO2 12/12/16 08:07 98.6 93 16 104/62 97 12/12/16 08:00 Nasal Cannula 2.0 Intake and Output 12/11/16 12/11/16 12/12/16 15:00 23:00 07:00 Intake Total 1920 ml 720 ml Balance 1920 ml 720 ml Exam Constitutional: alert, frail, oriented Psych: nl mood/affect Head: normocephalic Eyes: PERRL ENMT: mucosa pink and moist Neck: supple Respiratory: diminished breath sounds (L >>R), wheezing (occ) Cardiovascular: regular rate and rhythm Gastrointestinal: bowel sounds, non-tender, soft Extremities: No edema Neurological: nl mental status Results Result Diagram: 12/09/16 1430 12/09/16 0555 Medications Medications Current Medications Gabapentin (Neurontin) 300 mg TID PO Last administered on 12/12/16t 12:21; Admin Dose 300 MG; Start 12/05/16 at 09:00 Hydromorphone HCl (Dilaudid) 1 mg Q3 PRN IV PAIN Last administered on 13:26; Admin Dose 1 MG; Start 12/04/16 at 22:00 Morphine Sulfate (morphine) 4 mg Q4H PRN IV PAIN Last administered on 05:36; Admin Dose 4 MG; Start 12/04/16 at 22:00 Ondansetron HCl (Zofran Inj) 4 mg Q6H PRN IV NAUSEA AND/OR VOMITING; Start at 22:00 Lacosamide (Vimpat Liq) 75 mg BID PO Last administered on 12/12/16 10:05; Admin Dose 75 MG; Start 12/05/16 at 10:30 Pantoprazole Sodium (Protonix) 20 mg BID@06,18 PO Last administered on 05:19; Admin Dose 20 MG; Start 12/05/16 at 18:00 Miscellaneous Medication (Gi Cocktail (2)) 40 ml Q6 PRN PO HEARTBURN; Start at 12:30 Lorazepam (Ativan) 0.5 mg TID PO Last administered on 12/12/16 12:21; Admin Dose 0.5 MG; Start 12/06/16 at 21:00 Magnesium Hydroxide (Milk Of Mag) 30 ml DAILY PRN PO CONSTIPATION Last administered on 12/12/16 09:05; Admin Dose 30 ML; Start 12/07/16 at 18:30 Bisacodyl (Dulcolax) 10 mg DAILY PRN PO CONSTIPATION Last administered on 14:57; Admin Dose 10 MG; Start 12/08/16 at 14:00 Acetaminophen 650 mg 650 mg Q6H PRN PO PAIN AND OR ELEVATED TEMP Last administered on 12/10/16 14:52; Admin Dose 650 MG; Start 12/09/16 at 20:30 Ceftriaxone Sodium 500 mg/ Sodium Chloride 50 ml @ 100 mls/hr Q24H IVPB Last administered on 12/11/16 17:39; Admin Dose 100 MLS/HR; Start 12/11/16 at 17:30 Vancomycin HCl (Vancocin) 250 ml @ 125 mls/hr Q24H IVPB Last administered on 18:31; Admin Dose 125 MLS/HR; Start 12/11/16 at 18:00 Procedures Procedures PROCEDURE: Chest xray. CLINICAL INDICATION: Evaluate for pneumothorax. TECHNIQUE: Upright PA and lateral views of the chest were obtained. COMPARISON: 12/09/2016 FINDINGS: The cardiomediastinal silhouette is within normal limits. Pulmonary vascularity is within normal limits. There is a moderate left pleural effusion, slightly increased when compared to 12/09/2016. There is a stable small right pleural effusion. Bilateral lower lung zone atelectasis, left greater than right, remains. There is a stable small left apical pneumothorax. The skeletal structures and soft tissues are unremarkable. IMPRESSION: Stable small left pneumothorax. Moderate left pleural effusion, slightly increased when compared to 12/09/2016. Stable small right pleural effusion. Bilateral lower lung zone atelectasis, left greater than right. RPTAT:PP .Tayler Snow MD, MD Date Time Electronically viewed and signed by .Tayler Snow MD, MD on 12/11/2016 15: 32 RONNIE BARRAZA Dec 12, 2016 15:29
[2016-12-12] MEDS: CEFTRIAXONE 500 MG in SOD CHLORIDE 0.9% 50 ML IVPB SCH (17:14)
--- NOTE | 2016-12-12 17:26 | CONS ---
Date/Time of Note Date/Time of Note DATE: 12/12/16 TIME: 17:22 Assessment/Plan Assessment/Plan Chief Complaint/Hosp Course D PROGRESS NOTE TOTAL ABX DAY #2 => Start Vanco IV + Ceftriaxone today 24H INTERVAL SUMMARY * Overall has improved from standpoint of acute SOB from traumatic PTx, walked in halls today * Low grade temps on and off since admission / pain from fall ongoing * MICRO: BCX (+)MRSA - likely due to UTI URINE CULTURE Preliminary Organism 1 ESCHERICHIA COLI COLONY COUNT >100,000 CFU/ml Organism 2 STAPHYLOCOCCUS AUREUS COLONY COUNT 10,000 - 20,000 CFU/ml PHYSICAL EXAMINATION: GENERAL: 51 yo F, A/A/O VSS, NAD HEENT: Unremarkable NECK: Supple, trachea midline. CHEST: Equal chest rise bilaterally, without dyspnea on observation HEART: Pulse RRR ABDOMEN: Soft EXTREMITIES: Warm SKIN: See photos ID ASSESSMENT: 51 yo F PMHx Left Frontal Meningioma + Fibromyalgia admit with: 1. Large left-sided pneumothorax after ground level fall injury status post placement of a chest tube with reexpansion of the left lung. * CT w/Moderate left pleural effusion, slightly increased when compared to 12/09. * s/p Chest tube placement 12/05/16 -> CT removed ~ 12/09/16 * Subcutaneous Emphysema from fall due to PTx * L sided Pleural effusion versus hemothorax -> ? developing PNA ? 2. Acute Shortness of breath on admission 2/2 PTx resolved 3. Sepsis vs probably SIRS w/low grade temperatures 99.+ - 100.+ * BCx on admission 2/2 bottles (+)GPC seen on gram stain w/1/2 bottles (+)MRSA BLOOD CULTURE Final BCULT GRAM BOTTLE 1 Gram positive cocci in clusters 2 of 2 bottles . seen on gram stain of the broth Organism 1 METHICILLIN RESISTANT S.AUREUS . MULTI DRUG RESISTANT ORGANISM 4. GNR UTI URINE CULTURE Preliminary Organism 1 ESCHERICHIA COLI COLONY COUNT >100,000 CFU/ml Organism 2 STAPHYLOCOCCUS AUREUS COLONY COUNT 10,000 - 20,000 CFU/ml 5. Dilated common bile duct with elevated lipase, questionable gallstone pancreatitis. 6. Presumed acute kidney injury on admission = resolved /CT reveals left atrophic kidney w/ recovered renal fx * Non-obstructing renal calculi 7. Iron deficiency anemia s/p IV iron, on orals now ( )MRSA Nares ->N/A INVASIVES: ABX ALLERGY: KNDA CURRENT ABX: TOTAL ABX DAY #1 STARTED Ceftriaxone + Vanco IV (12/11 pm = 24H) ID RECOMMENDATIONS: 1.Anticipate 14 days ABX for MRSA Septicemia -> likely source either PNA/ Pleural effusion vs UTI/Pyelo 2. Ceftriaxone to cover E.Coli UTI/Pyelo 3. ?GS Pancreatitis -> dilated CBD . Problems: Consultation Date/Type/Reason Admit Date/Time Dec 04, 2016 at 20:35 Exam/Review of Systems Vital Signs Vitals Vital Signs Date Time Temp Pulse Resp B/P Pulse Ox O2 Delivery O2 Flow Rate FiO2 12/12/16 08:30 95 1.0 12/12/16 08:07 98.6 93 16 104/62 12/12/16 08:00 Nasal Cannula Intake and Output 12/11/16 12/11/16 12/12/16 15:00 23:00 07:00 Intake Total 1920 ml 720 ml Balance 1920 ml 720 ml Results Result Diagram: 12/09/16 1430 12/09/16 0555 Medications Medications Current Medications Gabapentin (Neurontin) 300 mg TID PO Last administered on 12/12/16 12:21; Admin Dose 300 MG; Start 12/05/16 at 09:00 Hydromorphone HCl (Dilaudid) 1 mg Q3 PRN IV PAIN Last administered on 17:04; Admin Dose 1 MG; Start 12/04/16 at 22:00 Morphine Sulfate (morphine) 4 mg Q4H PRN IV PAIN Last administered on 05:36; Admin Dose 4 MG; Start 12/04/16 at 22:00 Ondansetron HCl (Zofran Inj) 4 mg Q6H PRN IV NAUSEA AND/OR VOMITING; Start at 22:00 Lacosamide (Vimpat Liq) 75 mg BID PO Last administered on 12/12/16 10:05; Admin Dose 75 MG; Start 12/05/16 at 10:30 Pantoprazole Sodium (Protonix) 20 mg BID@06,18 PO Last administered on 05:19; Admin Dose 20 MG; Start 12/05/16 at 18:00 Miscellaneous Medication (Gi Cocktail (2)) 40 ml Q6 PRN PO HEARTBURN; Start at 12:30 Lorazepam (Ativan) 0.5 mg TID PO Last administered on 12/12/16 12:21; Admin Dose 0.5 MG; Start 12/06/16 at 21:00 Magnesium Hydroxide (Milk Of Mag) 30 ml DAILY PRN PO CONSTIPATION Last administered on 12/12/16 09:05; Admin Dose 30 ML; Start 12/07/16 at 18:30 Bisacodyl (Dulcolax) 10 mg DAILY PRN PO CONSTIPATION Last administered on 14:57; Admin Dose 10 MG; Start 12/08/16 at 14:00 Acetaminophen 650 mg 650 mg Q6H PRN PO PAIN AND OR ELEVATED TEMP Last administered on 12/10/16 14:52; Admin Dose 650 MG; Start 12/09/16 at 20:30 Ceftriaxone Sodium 500 mg/ Sodium Chloride 50 ml @ 100 mls/hr Q24H IVPB Last administered on 12/12/16 17:14; Admin Dose 100 MLS/HR; Start 12/11/16 at 17:30 Vancomycin HCl (Vancocin) 250 ml @ 125 mls/hr Q24H IVPB Last administered on 18:31; Admin Dose 125 MLS/HR; Start 12/11/16 at 18:00 AYDEN VALVERDE NP Dec 12, 2016 17:26
[2016-12-12] MEDS: VANCOMYCIN 1 GM in NS 250 ML IVPB SCH (18:30)
--- NOTE | 2016-12-12 18:56 | CONS ---
DATE OF ADMISSION: 12/04/2016 DATE OF CONSULTATION: 12/12/2016 TYPE OF CONSULTATION: Pulmonary. ATTENDING PHYSICIAN: Nick Steward MD REFERRING PHYSICIAN: Dr. Hoover. HISTORY OF PRESENT ILLNESS: This is a 51-year-old woman with a history of meningioma, who sustained a fall at home and subsequently was brought to the emergency room and found to have a large left pn eumothorax along with 7th posterior rib fracture. Chest tube was placed. The patient was seen by Joe Steele in consultation as well. Subsequently, a chest tube has been removed now. Last chest x-ray shows a very small left apical pneumothorax along with some effusion. The patient, however, i s asymptomatic. She has some discomfort in the area of the rib fracture, but denies any shortness o f breath. She denies any cough or sputum production. She at the time of fall lost balance and fell . She denied having loss of consciousness or seizure activity. REVIEW OF SYSTEMS: All systems reviewed and pertinent features are in the HPI, otherwise negative. PAST MEDICAL HISTORY: History of meningioma. SOCIAL HABITS: Nonsmoker. Denies alcohol abuse. FAMILY HISTORY: Noncontributory. ALLERGIES: NONE. PHYSICAL EXAMINATION: VITAL SIGNS: Blood pressure 104/62, pulse 93, respirations 16, temperature 98.6. Currently on 2 li ters O2 nasal cannula, saturating 97%. HEENT: Pupils are equal and reactive to light. NECK: Supple, no JVD noted, no cervical adenopathy noted, no carotid bruits heard. LUNGS: Good breath sounds bilaterally. Chest tube area is under dressing. CARDIOVASCULAR: S1, S2 normal. ABDOMEN: Soft, nontender. No organomegaly or masses noted. EXTREMITIES: No clubbing, cyanosis, or edema noted. NEUROLOGIC: No focal deficits. LABORATORIES: Sodium 134, potassium 4.5, chloride 98, CO2 33, BUN 13, creatinine .07, glucose 74. WBC 6.2, hemoglobin 8, hematocrit 24.8, platelets 251. Last chest x-ray done yesterday showed small left apical pneumothorax and left pleural effusion. IMPRESSION: 1. Status post fall with traumatic pneumothorax status post chest tube drainage. Now chest tube aguirre s been removed. 2. History of meningioma. 3. Hematoma. RECOMMENDATIONS: 1. Follow up chest x-ray. 2. Follow up CBC to monitor hemoglobin. 3. If x-ray shows no pneumothorax, the patient can be safely discharged, provided the hemoglobin is stable. Dictated By: NELLA ERNANDEZ MD, MA/NICOLE Conf#: [id number] DID#: [id number]
[2016-12-12 19:35] VITALS: BP 120/73; RESP 18
[2016-12-13] MEDS: PANTOPRAZOLE SODIUM 20 MG TABEC PO SCH ×2 (05:49→17:43)
[2016-12-13] MEDS: HYDROmorphONE 1 MG/ML SYG IV PRN ×5 (05:53→18:54)
[2016-12-13] MEDS: morphine 4 MG/ML VIAL IV PRN ×2 (07:03→14:06)
[2016-12-13 07:51] LABS: HEMATOCRIT 24.9 % (37.0-47.0); HEMOGLOBIN 8.3 g/dl (12.0-16.0); MEAN CORPUSCULAR HEMOGLOBIN 27.3 pg (29.0-33.0); MEAN CORPUSCULAR HGB CONC 33.2 g/dl (32.0-37.0); MEAN CORPUSCULAR VOLUME 82.2 fl (82.0-101.0); PLATELET COUNT 414 10^3/UL (140-440); RED BLOOD COUNT 3.03 10^6/ul (4.20-5.40); RED CELL DISTRIBUTION WIDTH 17.2 % (11.5-14.5); UNCORRECTED WBC 5.1 10^3/ul (4.8-10.8); WHITE BLOOD COUNT 5.1 10^3/ul (4.8-10.8)
[2016-12-13 07:54] LABS: CREATININE 0.71 mg/dl (0.44-1.00)
[2016-12-13 07:59] VITALS: BP 111/71; RESP 16
[2016-12-13 08:13] LABS: CONDITION 1; LH ANALYZER COMMENTS 1
[2016-12-13] MEDS: LORAZEPAM 0.5 MG TAB PO SCH ×3 (08:56→20:32)
[2016-12-13] MEDS: GABAPENTIN 300 MG CAP PO SCH ×3 (08:56→20:32)
[2016-12-13] MEDS: MAGNESIUM HYDROXIDE 30ML CUP PO PRN (08:56)
[2016-12-13] MEDS: LACOSAMIDE (10 MG/ML PO SYG) PO SCH ×2 (09:29→21:44)
--- NOTE | 2016-12-13 10:00 | RADRPT ---
PROCEDURE: XR Chest AP portable CLINICAL INDICATION: Pneumonia, CHF TECHNIQUE: An AP portable radiograph of the chest was submitted. COMPARISON: 12/11/2016 FINDINGS: Support Hardware: None Cardiovascular: The cardiovascular silhouette appears unremarkable. Lung Grimm: There is worsening infiltrate or atelectasis within the left lower lobe and a small pat ch of infiltrate is again seen within the inferior right upper lobe. Pleural parenchymal scarring is again seen at the pulmonary apices. Osseous Structures: There is osteoporosis. Soft Tissues: Surgical keith are seen in the right upper quadrant of the abdomen. IMPRESSION: 1. Worsening atelectasis/infiltrate involving the left lower lobe with a small focal infiltrate aga in seen within the right upper lobe. Pleural parenchymal scarring is again seen at the pulmonary api jessenia. 2. Small to moderate left pleural fluid accumulation, unchanged in the interval development of a sm all right pleural fluid accumulation. 3. The cardiovascular silhouette is stable unremarkable. Physician Gregg Date Time Electronically viewed and signed by Physician Gregg on 12/13/2016 10:00 RH/
[2016-12-13 10:54] LABS: ANISOCYTOSIS 1+; EOSINOPHILS # 0.1 10^3/ul (0.0-0.5); HYPOCHROMASIA 1+; MONOCYTE # 0.6 10^3/ul (0.3-0.9); MYELOCYTES # 0.1; NEUTROPHIL # 3.3 10^3/ul (1.6-7.5)
--- NOTE | 2016-12-13 14:02 | PN ---
DATE: 12/13/2016 SUBJECTIVE: The patient is alert, wants to go home, looks comfortable, no fevers. DIAGNOSTICS: WBC 5.1, no shift, band 1, neutrophils 64, BUN 10, creatinine 0.71. MICROBIOLOGY: Blood culture on admission grew MRSA. Urine culture growing E. coli and MRSA. ANTIMICROBIALS: The patient is on: 1. Vancomycin. 2. Rocephin. PHYSICAL EXAMINATION: GENERAL: This is a well-developed, well-nourished, middle-aged woman who is alert, in no distress. HEENT: Head atraumatic, normocephalic. Sclerae anicteric. Buccal mucosa pink. NECK: Supple, trachea midline. CHEST: Rise symmetrical. Breath sounds clear. HEART: S1, S2. ABDOMEN: Soft. Bowel tones present. ASSESSMENT: 1. Methicillin-sensitive Staphylococcus aureus bacteremia, likely secondary to #2. 2. Methicillin-resistant Staphylococcus aureus and Escherichia coli urinary tract infection. 3. Large left-sided pneumothorax status post chest tube placement. 4. Anemia. PLAN: The patient remains stable pending repeat blood cultures. Continue present care, antibiotics . Anticipate treating with antibiotics for 2 weeks. Follow pulmonary and cardiothoracic surgery re commendations. Dictated By: CARMITA ANGULO [employer]PER[employer]OR [employer] for VANDANA DEMARCO/NICOLE Conf#: [id number] DID#: [id number]
--- NOTE | 2016-12-13 16:08 | CONS ---
Date/Time of Note Date/Time of Note DATE: 12/13/16 TIME: 16:06 Consult Date/Type/Reason Admit Date/Time Dec 04, 2016 at 20:35 Initial Consult Date Type of Consultation: pulmonary Subjective Patient feels okay was complaining of pain in left lower quadrant. Expressing some shortness of breath on exertion Objective Vital Signs Date Time Temp Pulse Resp B/P Pulse Ox O2 Delivery O2 Flow Rate FiO2 12/13/16 08:15 Nasal Cannula 2.0 12/13/16 07:59 98.5 99 16 111/71 92 Intake and Output 12/12/16 12/12/16 12/13/16 15:00 23:00 07:00 Intake Total 1480 ml 970 ml Output Total 300 ml Balance 1180 ml 970 ml PHYSICAL EXAMINATION: VITAL SIGNS: As above thin cachectic lady HEENT: Pupils are equal and reactive to light. NECK: Supple, no JVD noted, no cervical adenopathy noted, no carotid bruits heard. LUNGS: Diminished air entry left base CARDIOVASCULAR: S1, S2 normal. ABDOMEN: Soft, nontender. No organomegaly or masses noted. EXTREMITIES: No clubbing, cyanosis, or edema noted. NEUROLOGIC: No focal deficits. Results/Medications Result Diagram: 12/13/16 0535 12/13/16 0535 Results 24 hrs Chest x-ray Increasing left effusion Laboratory Tests Test 12/13/16 05:35 Anisocytosis 1+ Band Neutrophils % 1.0 Blood Morphology Comment Blood Urea Nitrogen 10 Creatinine 0.71 Differential Comment MANUAL DIFF Eosinophils # 0.1 Eosinophils % 2.0 Hematocrit 24.9 L Hemoglobin 8.3 L Hypochromasia 1+ Lymphocytes # 1.0 Lymphocytes % 20.0 Mean Corpuscular Hemoglobin 27.3 L Mean Corpuscular Hemoglobin Concent 33.2 Mean Corpuscular Volume 82.2 Mean Platelet Volume 9.0 Monocytes # 0.6 Monocytes % 12.0 H Myelocytes # 0.1 Myelocytes % 1.0 H Neutrophils # 3.3 Neutrophils % 64.0 Platelet Count 414 # Red Blood Count 3.03 L Red Cell Distribution Width 17.2 H White Blood Count 5.1 Medications Current Medications Gabapentin (Neurontin) 300 mg TID PO Last administered on 12/13/16t 13:07; Admin Dose 300 MG; Start 12/05/16 at 09:00 Hydromorphone HCl (Dilaudid) 1 mg Q3 PRN IV PAIN Last administered on 11:49; Admin Dose 1 MG; Start 12/04/16 at 22:00 Morphine Sulfate (morphine) 4 mg Q4H PRN IV PAIN Last administered on 14:06; Admin Dose 4 MG; Start 12/04/16 at 22:00 Ondansetron HCl (Zofran Inj) 4 mg Q6H PRN IV NAUSEA AND/OR VOMITING; Start at 22:00 Lacosamide (Vimpat Liq) 75 mg BID PO Last administered on 12/13/16 09:29; Admin Dose 75 MG; Start 12/05/16 at 10:30 Pantoprazole Sodium (Protonix) 20 mg BID@06,18 PO Last administered on 05:49; Admin Dose 20 MG; Start 12/05/16 at 18:00 Miscellaneous Medication (Gi Cocktail (2)) 40 ml Q6 PRN PO HEARTBURN; Start at 12:30 Lorazepam (Ativan) 0.5 mg TID PO Last administered on 12/13/16 13:07; Admin Dose 0.5 MG; Start 12/06/16 at 21:00 Magnesium Hydroxide (Milk Of Mag) 30 ml DAILY PRN PO CONSTIPATION Last administered on 12/13/16 08:56; Admin Dose 30 ML; Start 12/07/16 at 18:30 Bisacodyl (Dulcolax) 10 mg DAILY PRN PO CONSTIPATION Last administered on 14:57; Admin Dose 10 MG; Start 12/08/16 at 14:00 Acetaminophen 650 mg 650 mg Q6H PRN PO PAIN AND OR ELEVATED TEMP Last administered on 12/10/16 14:52; Admin Dose 650 MG; Start 12/09/16 at 20:30 Ceftriaxone Sodium 500 mg/ Sodium Chloride 50 ml @ 100 mls/hr Q24H IVPB Last administered on 12/12/16 17:14; Admin Dose 100 MLS/HR; Start 12/11/16 at 17:30 Vancomycin HCl (Vancocin) 250 ml @ 125 mls/hr Q24H IVPB Last administered on 18:30; Admin Dose 125 MLS/HR; Start 12/11/16 at 18:00 Miscellaneous Information (*Rx Drug Level Order Reminder*) VANCOMYCIN TROUGH AT 1700 ONCE ONCE XX ; Start 12/14/16 at 17:00; Stop 12/14/16 at 17:01 Assessment/Plan Chief Complaint/Hosp Course IMPRESSION: 1. Status post fall with traumatic pneumothorax status post chest tube drainage. Now chest tube has been removed. Increasing left pleural effusion. Low hemoglobin concerning for hemothorax. 2. History of meningioma. 3. Hematoma. RECOMMENDATIONS: 1. CT chest to evaluate pleural effusion and lung parenchyma pneumothorax 2. Follow up CBC to monitor hemoglobin. 3. Will discuss with cardiothoracic surgery after repeat CT chest likely will need thoracentesis and/or another chest tube. Problems: FLAQUITA BENNETT MD, [facility] Dec 13, 2016 16:08
--- NOTE | 2016-12-13 16:24 | PN ---
Date/Time of Note Date/Time of Note DATE: 12/13/16 TIME: 16:18 Assessment/Plan VTE Prophylaxis VTE Prophylaxis Intervention: SCD's Lines/Catheters IV [facility] [place] [facility] Urinary Cath still in place: No Assessment/Plan Chief Complaint/Hosp Course Assessment/Plan: 51 yo F s/p fall with 1. Traumatic L sided pneumothorax s/p Chest tube placement 12/05/16. Chest tube removed ?12/09/16. Repeat CXR shows: worsening atelectasis/infiltrate involving the left lower lobe with a small focal infiltrate again seen within the right upper lobe. No signs of any PTX presently based on CXR report. - for CT chest with IV contrast - f/u pulm rec's 2. Post traumatic L sided Pleural effusion versus hemothorax. Persistent effusion + Low hgb concerning for hemothorax -- CXR appears stable - for CT chest, and pulm rec's. 3. Subcutaneous Emphysema from fall: resolved - monitor, f/u CT chest results 4. Sepsis likely 2/2 bacteremia and UTI: + MRSA bacteremia and + MRSA and ecoli UTI - monitor, continue rocephin and vanco - will get PICC as well and order for home Vanco IV (needs till 12/24/16) via CM. 5. Atrophic L kidney with preserved renal function 6. Chronic non obstructing nephrolithiasis likely causing above 7. Iron deficiency anemia * s/p IV iron, on orals now PLAN: possible d/c home in 24 hrs. Problems: Subjective 24 Hr Interval Summary Free Text/Dictation Pt has some LBP and neck pain. Exam/Review of Systems Vital Signs Vitals Vital Signs Date Time Temp Pulse Resp B/P Pulse Ox O2 Delivery O2 Flow Rate FiO2 12/13/16 08:15 Nasal Cannula 2.0 12/13/16 07:59 98.5 99 16 111/71 92 Intake and Output 12/12/16 12/12/16 12/13/16 15:00 23:00 07:00 Intake Total 1480 ml 970 ml Output Total 300 ml Balance 1180 ml 970 ml Exam Constitutional: alert, frail, oriented Psych: nl mood/affect Head: normocephalic Eyes: PERRL ENMT: mucosa pink and moist Neck: supple Respiratory: diminished breath sounds (L >>R), wheezing (occ) Cardiovascular: regular rate and rhythm Gastrointestinal: bowel sounds, non-tender, soft Extremities: No edema Neurological: nl mental status Results Result Diagram: 12/13/16 0535 12/13/16 0535 Results 24 hrs Laboratory Tests Test 12/13/16 05:35 Anisocytosis 1+ Band Neutrophils % 1.0 Blood Morphology Comment Blood Urea Nitrogen 10 Creatinine 0.71 Differential Comment MANUAL DIFF Eosinophils # 0.1 Eosinophils % 2.0 Hematocrit 24.9 L Hemoglobin 8.3 L Hypochromasia 1+ Lymphocytes # 1.0 Lymphocytes % 20.0 Mean Corpuscular Hemoglobin 27.3 L Mean Corpuscular Hemoglobin Concent 33.2 Mean Corpuscular Volume 82.2 Mean Platelet Volume 9.0 Monocytes # 0.6 Monocytes % 12.0 H Myelocytes # 0.1 Myelocytes % 1.0 H Neutrophils # 3.3 Neutrophils % 64.0 Platelet Count 414 # Red Blood Count 3.03 L Red Cell Distribution Width 17.2 H White Blood Count 5.1 Medications Medications Current Medications Gabapentin (Neurontin) 300 mg TID PO Last administered on 12/13/16 13:07; Admin Dose 300 MG; Start 12/05/16 at 09:00 Hydromorphone HCl (Dilaudid) 1 mg Q3 PRN IV PAIN Last administered on 16:06; Admin Dose 1 MG; Start 12/04/16 at 22:00 Ondansetron HCl (Zofran Inj) 4 mg Q6H PRN IV NAUSEA AND/OR VOMITING; Start at 22:00 Lacosamide (Vimpat Liq) 75 mg BID PO Last administered on 12/13/16 09:29; Admin Dose 75 MG; Start 12/05/16 at 10:30 Pantoprazole Sodium (Protonix) 20 mg BID@06,18 PO Last administered on 05:49; Admin Dose 20 MG; Start 12/05/16 at 18:00 Miscellaneous Medication (Gi Cocktail (2)) 40 ml Q6 PRN PO HEARTBURN; Start at 12:30 Lorazepam (Ativan) 0.5 mg TID PO Last administered on 12/13/16 13:07; Admin Dose 0.5 MG; Start 12/06/16 at 21:00 Magnesium Hydroxide (Milk Of Mag) 30 ml DAILY PRN PO CONSTIPATION Last administered on 12/13/16 08:56; Admin Dose 30 ML; Start 12/07/16 at 18:30 Bisacodyl (Dulcolax) 10 mg DAILY PRN PO CONSTIPATION Last administered on 14:57; Admin Dose 10 MG; Start 12/08/16 at 14:00 Acetaminophen 650 mg 650 mg Q6H PRN PO PAIN AND OR ELEVATED TEMP Last administered on 12/10/16 14:52; Admin Dose 650 MG; Start 12/09/16 at 20:30 Ceftriaxone Sodium 500 mg/ Sodium Chloride 50 ml @ 100 mls/hr Q24H IVPB Last administered on 12/12/16 17:14; Admin Dose 100 MLS/HR; Start 12/11/16 at 17:30 Vancomycin HCl (Vancocin) 250 ml @ 125 mls/hr Q24H IVPB Last administered on 18:30; Admin Dose 125 MLS/HR; Start 12/11/16 at 18:00 Miscellaneous Information (*Rx Drug Level Order Reminder*) VANCOMYCIN TROUGH AT 1700 ONCE ONCE XX ; Start 12/14/16 at 17:00; Stop 12/14/16 at 17:01 Lidocaine (Xylocaine 1% (Mdv) 20 ml) 20 ml ONCE ONCE SC ; Start 12/13/16 at 16: 30; Stop 12/13/16 at 16:31 Morphine Sulfate (morphine) 2 mg Q4H PRN IV PAIN; Start 12/13/16 at 18:00 JIMENA ACEVEDO Dec 13, 2016 16:24
[2016-12-13] MEDS ORDERED: LIDOCAINE 1% (MDV) 20 ML INJ SC ONE (16:30)
[2016-12-13] MEDS: CEFTRIAXONE 500 MG in SOD CHLORIDE 0.9% 50 ML IVPB SCH (17:43)
[2016-12-13] MEDS: VANCOMYCIN 1 GM in NS 250 ML IVPB SCH (18:55)
[2016-12-13 20:00] VITALS: BP 97/56; RESP 16
[2016-12-13] MEDS: morphine 2 MG INJ IV PRN (20:44)
[2016-12-13 21:40] VITALS: BP 118/69
[2016-12-14] MEDS: PANTOPRAZOLE SODIUM 20 MG TABEC PO SCH ×2 (05:14→17:47)
[2016-12-14] MEDS: morphine 2 MG INJ IV PRN ×2 (05:18→20:04)
--- NOTE | 2016-12-14 07:53 | RADRPT ---
PROCEDURE: CT chest without contrast. CLINICAL INDICATION: Status post chest tube removal with effusions TECHNIQUE: CT scan of the chest without contrast was performed on a multi-slice CT scanner. The p atient was scanned without administration of intravenous contrast. Coronal and sagittal reformatted images were obtained from the axial source images. DLP vol 141.6 mGy CTDI 3.8 mGy-cm COMPARISON: 12/05/2016 FINDINGS: The left-sided chest tube has been removed and there is fluid seen in the tract of the prior tube in the anterior lateral aspect of the left thorax. There is also a linear focus of fluid density in th e thoracic wall in the area of the tube which could represent a small hematoma from the tract. There is a very trace amount of residual extrapleural air seen in the apex. There is a moderate sized la yering left-sided effusion which causes compressive atelectasis of the left lower lobe and of a port ion of the lingula. Ground-glass is seen at the bases and posterior aspect of the left lung and effu gely is increased in size from prior study. There is a small amount of layering right-sided effusio n with associated atelectasis of the right lower lobe, with mild ground-glass. There are more focal ground-glass opacities seen within the lung parenchyma in the bilateral upper lobes which are new f rom the prior study. The airways are patent with the presence of airways wall thickening. Aortic and coronary artery atherosclerotic calcifications are present. There is trace pericardial fl uid. There are no enlarged axillary or mediastinal lymph nodes. The left kidney is very atrophic and there is a small nonobstructing 2 mm left lower pole renal ston e. The gallbladder is removed and there is a prominent appearance of the common duct which may be r elated to postcholecystectomy physiology. There is a thickened appearance the gastric wall which ma y be related to underdistension. Degenerative changes are seen within the thoracic spine and shoulde rs with no acute osseous abnormality. IMPRESSION: The chest tube is removed with a residual tract in the pleural space and a likely small hematoma wit h the tube had previously been within the left chest wall. Only a residual trace amount of extraple ural air remains. The left pleural effusion has enlarged since the prior exam and is now moderate in size. There is w orsening bibasilar atelectasis secondary to effusions. There is development of bilateral upper lung ground-glass opacity which could represent localized ed erma or inflammation or could represent developing infection. Atherosclerotic disease. Atrophic left kidney with a small stone. Thickened appearance the gastric wall could represent underdistension or gastritis. RPTAT: AA .Deedee Kay MD, MD Date Time Electronically viewed and signed by .Deedee Kay MD, on 12/14/2016 07:52 .J/
[2016-12-14 08:14] VITALS: BP 119/77; RESP 16
[2016-12-14] MEDS: LORAZEPAM 0.5 MG TAB PO SCH ×3 (08:44→20:02)
[2016-12-14] MEDS: GABAPENTIN 300 MG CAP PO SCH ×3 (08:44→20:02)
[2016-12-14] MEDS: HYDROmorphONE 1 MG/ML SYG IV PRN ×5 (08:44→21:36)
[2016-12-14] MEDS: MAGNESIUM HYDROXIDE 30ML CUP PO PRN (08:51)
[2016-12-14] MEDS: LACOSAMIDE (10 MG/ML PO SYG) PO SCH ×2 (09:31→21:29)
[2016-12-14] MEDS ORDERED: SOD CHLORIDE 0.9% 100 ML ONE (13:00)
--- NOTE | 2016-12-14 13:37 | RADRPT ---
PROCEDURE: XR Chest. CLINICAL INDICATION: Check PICC line position. TECHNIQUE: Single frontal view. COMPARISON: 12/13/2016 FINDINGS: There is a right arm PICC line with the tip in the lower superior vena cava. There is mild right ba silar atelectasis and small right pleural effusion. There is moderate left basilar atelectasis or p neumonia and a moderate left pleural effusion. The heart size is normal. The osseous structures are unremarkable. There is no pneumothorax. IMPRESSION: 1. Satisfactory position of right arm PICC line. 2. No other change from 12/13/2016. RPTAT: QQ .Bernabe Pierce MD, MD Date Time Electronically viewed and signed by .Bernabe Pierce MD, on 12/14/2016 13:37 .R/
--- NOTE | 2016-12-14 13:44 | RADRPT ---
PROCEDURE: Ultrasound guidance for placement of needle in right upper extremity vein. CLINICAL INDICATION: Venous access. TECHNIQUE: Limited sonography of the right upper extremity was performed. Ultrasound images were recorded and stored in the patient's medical record. COMPARISON: None. FINDINGS: The ultrasound images demonstrate a patent right upper extremity vein. The PICC line was inserted b y the PICC line nurse. IMPRESSION: 1. Ultrasound guidance for a needle placement in a right upper extremity vein. 2. The visualized right upper extremity vein is patent. RPTAT: QQ .Bernabe Pierce MD, MD Date Time Electronically viewed and signed by .Bernabe Pierce MD, MD on 12/14/2016 13:44 .R/
--- NOTE | 2016-12-14 15:42 | PN ---
Date/Time of Note Date/Time of Note DATE: 12/14/16 TIME: 15:39 Assessment/Plan VTE Prophylaxis VTE Prophylaxis Intervention: SCD's Lines/Catheters IV Catheter Type (from Nrs): PICC Line Central line still needed: Yes Urinary Cath still in place: No Assessment/Plan Chief Complaint/Hosp Course Assessment/Plan: 51 yo F s/p fall with 1. Traumatic L sided pneumothorax s/p Chest tube placement 12/05/16. Chest tube removed ?12/09/16. Repeat CXR shows: worsening atelectasis/infiltrate involving the left lower lobe with a small focal infiltrate again seen within the right upper lobe. No signs of any PTX presently based on CXR report. CT chest yesterday did show likely small hematoma in pleural space - per pulm rec's - get CTS consult - f/u pulm rec's 2. Subcutaneous Emphysema from fall - monitor 3. Sepsis likely 2/2 bacteremia and UTI: + MRSA bacteremia and + MRSA and ecoli UTI - monitor, continue rocephin and vanco - continue Vanco IV (needs till 12/24/16) via CM. 5. Atrophic L kidney with preserved renal function 6. Chronic non obstructing nephrolithiasis likely causing above 7. Iron deficiency anemia * s/p IV iron, on orals now Problems: Subjective 24 Hr Interval Summary Free Text/Dictation Pt had CT chest yesterday, no acute events overnight. Exam/Review of Systems Vital Signs Vitals Vital Signs Date Time Temp Pulse Resp B/P Pulse Ox O2 Delivery O2 Flow Rate FiO2 12/14/16 08:15 Nasal Cannula 2.0 12/14/16 08:14 98.9 75 16 119/77 97 Intake and Output 12/13/16 12/13/16 12/14/16 15:00 23:00 07:00 Intake Total 1680 ml 1115 ml Balance 1680 ml 1115 ml Exam Constitutional: alert, frail, oriented Psych: nl mood/affect Head: normocephalic Eyes: PERRL ENMT: mucosa pink and moist Neck: supple Respiratory: less diminished breath sounds (L >>R) Cardiovascular: regular rate and rhythm Gastrointestinal: bowel sounds, non-tender, soft Extremities: No edema Neurological: nl mental status Results Result Diagram: 12/13/16 0535 12/13/1635 Medications Medications Current Medications Gabapentin (Neurontin) 300 mg TID PO Last administered on 12/14/16 13:36; Admin Dose 300 MG; Start 12/05/16 at 09:00 Hydromorphone HCl (Dilaudid) 1 mg Q3 PRN IV PAIN Last administered on 14:44; Admin Dose 1 MG; Start 12/04/16 at 22:00 Ondansetron HCl (Zofran Inj) 4 mg Q6H PRN IV NAUSEA AND/OR VOMITING; Start at 22:00 Lacosamide (Vimpat Liq) 75 mg BID PO Last administered on 12/14/16 09:31; Admin Dose 75 MG; Start 12/05/16 at 10:30 Pantoprazole Sodium (Protonix) 20 mg BID@06,18 PO Last administered on 05:14; Admin Dose 20 MG; Start 12/05/16 at 18:00 Miscellaneous Medication (Gi Cocktail (2)) 40 ml Q6 PRN PO HEARTBURN; Start at 12:30 Lorazepam (Ativan) 0.5 mg TID PO Last administered on 12/14/16 13:36; Admin Dose 0.5 MG; Start 12/06/16 at 21:00 Magnesium Hydroxide (Milk Of Mag) 30 ml DAILY PRN PO CONSTIPATION Last administered on 12/14/16 08:51; Admin Dose 30 ML; Start 12/07/16 at 18:30 Bisacodyl (Dulcolax) 10 mg DAILY PRN PO CONSTIPATION Last administered on 14:57; Admin Dose 10 MG; Start 12/08/16 at 14:00 Acetaminophen 650 mg 650 mg Q6H PRN PO PAIN AND OR ELEVATED TEMP Last administered on 12/10/16 14:52; Admin Dose 650 MG; Start 12/09/16 at 20:30 Ceftriaxone Sodium 500 mg/ Sodium Chloride 50 ml @ 100 mls/hr Q24H IVPB Last administered on 12/13/16 17:43; Admin Dose 100 MLS/HR; Start 12/11/16 at 17:30 Vancomycin HCl (Vancocin) 250 ml @ 125 mls/hr Q24H IVPB Last administered on 18:55; Admin Dose 125 MLS/HR; Start 12/11/16 at 18:00 Miscellaneous Information (*Rx Drug Level Order Reminder*) VANCOMYCIN TROUGH AT 1700 ONCE ONCE XX ; Start 12/14/16 at 17:00; Stop 12/14/16 at 17:01 Morphine Sulfate (morphine) 2 mg Q4H PRN IV PAIN Last administered on t 05:18; Admin Dose 2 MG; Start 12/13/16 at 18:00 IV Flush (NS 10 ml) 10 ml PRN PRN IV IV PROTOCOL; Start 12/14/16 at 15:30 JIMENA ACEVEDO Dec 14, 2016 15:42
--- NOTE | 2016-12-14 16:33 | CONS ---
Date/Time of Note Date/Time of Note DATE: 12/14/16 TIME: 16:31 Consult Date/Type/Reason Admit Date/Time Dec 04, 2016 at 20:35 Type of Consultation: pulmonary Subjective Patient doing okay still has left lower quadrant pain mild shortness of breath on exertion Objective Vital Signs Date Time Temp Pulse Resp B/P Pulse Ox O2 Delivery O2 Flow Rate FiO2 12/14/16 08:15 Nasal Cannula 2.0 12/14/16 08:14 98.9 75 16 119/77 97 Intake and Output 12/13/16 12/13/16 12/14/16 15:00 23:00 07:00 Intake Total 1680 ml 1115 ml Balance 1680 ml 1115 ml PHYSICAL EXAMINATION: VITAL SIGNS: As above thin cachectic lady HEENT: Pupils are equal and reactive to light. NECK: Supple, no JVD noted, no cervical adenopathy noted, no carotid bruits heard. LUNGS: Diminished air entry left base CARDIOVASCULAR: S1, S2 normal. ABDOMEN: Soft, nontender. No organomegaly or masses noted. EXTREMITIES: No clubbing, cyanosis, or edema noted. NEUROLOGIC: No focal deficits. Results/Medications Result Diagram: 12/13/16 0535 12/13/16 0535 Medications Current Medications Gabapentin (Neurontin) 300 mg TID PO Last administered on 12/14/16 13:36; Admin Dose 300 MG; Start 12/05/16 at 09:00 Hydromorphone HCl (Dilaudid) 1 mg Q3 PRN IV PAIN Last administered on 14:44; Admin Dose 1 MG; Start 12/04/16 at 22:00 Ondansetron HCl (Zofran Inj) 4 mg Q6H PRN IV NAUSEA AND/OR VOMITING; Start at 22:00 Lacosamide (Vimpat Liq) 75 mg BID PO Last administered on 12/14/16 09:31; Admin Dose 75 MG; Start 12/05/16 at 10:30 Pantoprazole Sodium (Protonix) 20 mg BID@06,18 PO Last administered on 05:14; Admin Dose 20 MG; Start 12/05/16 at 18:00 Miscellaneous Medication (Gi Cocktail (2)) 40 ml Q6 PRN PO HEARTBURN; Start at 12:30 Lorazepam (Ativan) 0.5 mg TID PO Last administered on 12/14/16 13:36; Admin Dose 0.5 MG; Start 12/06/16 at 21:00 Magnesium Hydroxide (Milk Of Mag) 30 ml DAILY PRN PO CONSTIPATION Last administered on 12/14/16 08:51; Admin Dose 30 ML; Start 12/07/16 at 18:30 Bisacodyl (Dulcolax) 10 mg DAILY PRN PO CONSTIPATION Last administered on 14:57; Admin Dose 10 MG; Start 12/08/16 at 14:00 Acetaminophen 650 mg 650 mg Q6H PRN PO PAIN AND OR ELEVATED TEMP Last administered on 12/10/16 14:52; Admin Dose 650 MG; Start 12/09/16 at 20:30 Ceftriaxone Sodium 500 mg/ Sodium Chloride 50 ml @ 100 mls/hr Q24H IVPB Last administered on 12/13/16 17:43; Admin Dose 100 MLS/HR; Start 12/11/16 at 17:30 Vancomycin HCl (Vancocin) 250 ml @ 125 mls/hr Q24H IVPB Last administered on 18:55; Admin Dose 125 MLS/HR; Start 12/11/16 at 18:00 Miscellaneous Information (*Rx Drug Level Order Reminder*) VANCOMYCIN TROUGH AT 1700 ONCE ONCE XX ; Start 12/14/16 at 17:00; Stop 12/14/16 at 17:01 Morphine Sulfate (morphine) 2 mg Q4H PRN IV PAIN Last administered on 05:18; Admin Dose 2 MG; Start 12/13/16 at 18:00 IV Flush (NS 10 ml) 10 ml PRN PRN IV IV PROTOCOL; Start 12/14/16 at 15:30 Assessment/Plan Chief Complaint/Hosp Course IMPRESSION: 1. Status post fall with traumatic pneumothorax status post chest tube drainage. Now chest tube has been removed. Increasing left pleural effusion. Low hemoglobin concerning for hemothorax. 2. History of meningioma. 3. Hematoma. RECOMMENDATIONS: 1. CT chest shows moderate left pleural effusion with compressive atelectasis 2. Follow up CBC to monitor hemoglobin. 3. Ultrasound-guided thoracentesis of left pleural effusion will also discuss with thoracic surgery for reevaluation. Problems: VADGAMA,FLAQUITA V. MD, [facility] Dec 14, 2016 16:33
--- NOTE | 2016-12-14 17:10 | CONS ---
Date/Time of Note Date/Time of Note DATE: 12/14/16 TIME: 17:09 Assessment/Plan Assessment/Plan Chief Complaint/Hosp Course SUBJECTIVE: The patient is alert, looks comfortable, no fevers. MICROBIOLOGY: Blood culture on admission grew MRSA. Urine culture growing E. coli and MRSA. ANTIMICROBIALS: The patient is on: 1. Vancomycin. 2. Rocephin. PHYSICAL EXAMINATION: GENERAL: This is a well-developed, well-nourished, middle-aged woman who is alert, in no distress. HEENT: Head atraumatic, normocephalic. Sclerae anicteric. Buccal mucosa pink. NECK: Supple, trachea midline. CHEST: Rise symmetrical. Breath sounds clear. HEART: S1, S2. ABDOMEN: Soft. Bowel tones present. ASSESSMENT: 1. Methicillin-sensitive Staphylococcus aureus bacteremia, likely secondary to #2. 2. Methicillin-resistant Staphylococcus aureus and Escherichia coli urinary tract infection. 3. Large left-sided pneumothorax status post chest tube placement. 4. Anemia. PLAN: The patient remains stable, pending repeat blood cultures. Anticipate dc on current abx for 2 weeks to complete treatment. Follow pulmonary and cardiothoracic surgery recommendations. DW staff Problems: Consultation Date/Type/Reason Admit Date/Time Dec 04, 2016 at 20:35 Initial Consult Date Type of Consultation: ID Exam/Review of Systems Vital Signs Vitals Vital Signs Date Time Temp Pulse Resp B/P Pulse Ox O2 Delivery O2 Flow Rate FiO2 12/14/16 08:15 Nasal Cannula 2.0 12/14/16 08:14 98.9 75 16 119/77 97 Intake and Output 12/13/16 12/13/16 12/14/16 15:00 23:00 07:00 Intake Total 1680 ml 1115 ml Balance 1680 ml 1115 ml Results Result Diagram: 12/13/16 0535 12/13/16 0535 Medications Medications Current Medications Gabapentin (Neurontin) 300 mg TID PO Last administered on 12/14/16 13:36; Admin Dose 300 MG; Start 12/05/16 at 09:00 Hydromorphone HCl (Dilaudid) 1 mg Q3 PRN IV PAIN Last administered on 14:44; Admin Dose 1 MG; Start 12/04/16 at 22:00 Ondansetron HCl (Zofran Inj) 4 mg Q6H PRN IV NAUSEA AND/OR VOMITING; Start at 22:00 Lacosamide (Vimpat Liq) 75 mg BID PO Last administered on 12/14/16 09:31; Admin Dose 75 MG; Start 12/05/16 at 10:30 Pantoprazole Sodium (Protonix) 20 mg BID@06,18 PO Last administered on 05:14; Admin Dose 20 MG; Start 12/05/16 at 18:00 Miscellaneous Medication (Gi Cocktail (2)) 40 ml Q6 PRN PO HEARTBURN; Start at 12:30 Lorazepam (Ativan) 0.5 mg TID PO Last administered on 12/14/16 13:36; Admin Dose 0.5 MG; Start 12/06/16 at 21:00 Magnesium Hydroxide (Milk Of Mag) 30 ml DAILY PRN PO CONSTIPATION Last administered on 12/14/16 08:51; Admin Dose 30 ML; Start 12/07/16 at 18:30 Bisacodyl (Dulcolax) 10 mg DAILY PRN PO CONSTIPATION Last administered on 14:57; Admin Dose 10 MG; Start 12/08/16 at 14:00 Acetaminophen 650 mg 650 mg Q6H PRN PO PAIN AND OR ELEVATED TEMP Last administered on 12/10/16 14:52; Admin Dose 650 MG; Start 12/09/16 at 20:30 Ceftriaxone Sodium 500 mg/ Sodium Chloride 50 ml @ 100 mls/hr Q24H IVPB Last administered on 12/13/16 17:43; Admin Dose 100 MLS/HR; Start 12/11/16 at 17:30 Vancomycin HCl (Vancocin) 250 ml @ 125 mls/hr Q24H IVPB Last administered on 18:55; Admin Dose 125 MLS/HR; Start 12/11/16 at 18:00 Morphine Sulfate (morphine) 2 mg Q4H PRN IV PAIN Last administered on 05:18; Admin Dose 2 MG; Start 12/13/16 at 18:00 IV Flush (NS 10 ml) 10 ml PRN PRN IV IV PROTOCOL; Start 12/14/16 at 15:30 CARMITA ANGULO NP Dec 14, 2016 17:10
[2016-12-14] MEDS: CEFTRIAXONE 500 MG in SOD CHLORIDE 0.9% 50 ML IVPB SCH (17:47)
[2016-12-14] MEDS: VANCOMYCIN 1 GM in NS 250 ML IVPB SCH (18:46)
[2016-12-14 20:21] VITALS: BP 125/75; RESP 20
[2016-12-14 20:43] LABS: INR 0.84; PROTIME 11.5 Sec (12.2-14.2); PT RATIO 0.9
[2016-12-14 20:44] LABS: PARTIAL THROMBOPLASTIN TIME 31.1 Sec (25.0-35.0)
[2016-12-15] MEDS: HYDROmorphONE 1 MG/ML SYG IV PRN ×6 (00:44→21:21)
[2016-12-15] MEDS: PANTOPRAZOLE SODIUM 20 MG TABEC PO SCH ×2 (05:10→20:05)
[2016-12-15] MEDS: VANCOMYCIN 750 MG in SOD CHLORIDE 0.9% 150 ML IVPB SCH ×2 (05:10→20:05)
--- NOTE | 2016-12-15 08:02 | PN ---
Date/Time of Note Date/Time of Note DATE: 12/15/16 TIME: 08:00 Assessment/Plan Lines/Catheters IV Catheter Type (from Nrsg): PICC Line Coughlin in Place (from Nrsg): No Assessment/Plan Chief Complaint/Hosp Course IMPRESSION: Left pneumothorax status post chest tube. RECOMMENDATIONS: SP FALL , SP CT ICT Scan MPRESSION: The left pleural effusion has enlarged since the prior exam and is now moderate in size. There is worsening bibasilar atelectasis secondary to effusions. Plan for VATS , decortication Problems: Subjective 24 Hr Interval Summary Constitutional: improved Pain Control: mild Exam/Review of Systems Vital Signs Vitals Vital Signs Date Time Temp Pulse Resp B/P Pulse Ox O2 Delivery O2 Flow Rate FiO2 12/15/16 06:15 2.0 12/14/16 20:21 98.6 92 20 125/75 94 12/14/16 20:00 Nasal Cannula Intake and Output 12/14/16 12/14/16 12/15/16 15:00 23:00 07:00 Intake Total 1740 ml 650 ml Balance 1740 ml 650 ml Exam ENMT: mucosa pink and moist, nl external ears & nose, nl lips & teeth, nl nasal mucosa & septum Neck: non-tender, supple Respiratory: clear to auscultation, normal air movement Cardiovascular: nl pulses, regular rate and rhythm Results Result Diagram: 12/13/16 0535 12/13/16 0535 EBONI BERGMAN MD Dec 15, 2016 08:02
[2016-12-15 08:27] VITALS: BP 117/81; RESP 17
[2016-12-15] MEDS: GABAPENTIN 300 MG CAP PO SCH ×3 (08:46→22:52)
[2016-12-15] MEDS: LORAZEPAM 0.5 MG TAB PO SCH ×3 (08:46→22:52)
--- NOTE | 2016-12-15 09:44 | PN ---
Date/Time of Note Date/Time of Note DATE: 12/15/16 TIME: 09:42 Assessment/Plan VTE Prophylaxis VTE Prophylaxis Intervention: SCD's Lines/Catheters IV Catheter Type (from Nrs): PICC Line Central line still needed: Yes Urinary Cath still in place: No Assessment/Plan Chief Complaint/Hosp Course Assessment/Plan: 51 yo F s/p fall with 1. Traumatic L sided pneumothorax s/p Chest tube placement 12/05/16. Chest tube removed ?12/09/16. Repeat CXR shows: worsening atelectasis/infiltrate involving the left lower lobe with a small focal infiltrate again seen within the right upper lobe. No signs of any PTX presently based on CXR report. CT chest yesterday did show likely small hematoma in pleural space - for possible VATS per CTS rec's, monitor, pain control - f/u pulm rec's as well 2. Subcutaneous Emphysema from fall - monitor 3. Sepsis likely 2/2 bacteremia and UTI: + MRSA bacteremia and + MRSA and ecoli UTI - monitor, continue rocephin and vanco - continue Vanco IV (needs till 12/24/16) 5. Atrophic L kidney with preserved renal function 6. Chronic non obstructing nephrolithiasis likely causing above 7. Iron deficiency anemia * s/p IV iron, on orals now Problems: Subjective 24 Hr Interval Summary Free Text/Dictation No acute events overnight, seen by CTS team. Exam/Review of Systems Vital Signs Vitals Vital Signs Date Time Temp Pulse Resp B/P Pulse Ox O2 Delivery O2 Flow Rate FiO2 12/15/16 08:27 98.7 81 17 117/81 91 12/15/16 06:15 2.0 12/14/16 20:00 Nasal Cannula Intake and Output 12/14/16 12/14/16 12/15/16 15:00 23:00 07:00 Intake Total 1740 ml 650 ml Balance 1740 ml 650 ml Exam PE: - unable to be performed today b/c pt off floor at procedure Results Result Diagram: 12/13/16 0535 12/13/16 0535 Results 24 hrs Laboratory Tests Test 12/14/16 17:00 12/14/16 20:07 Vancomycin Level Trough 7.7 L Activated Partial Thromboplast Time 31.1 INR International Normalized Ratio 0.84 Prothrombin Time 11.5 L Prothrombin Time Ratio 0.9 Medications Medications Current Medications Gabapentin (Neurontin) 300 mg TID PO Last administered on 12/15/16 08:46; Admin Dose 300 MG; Start 12/05/16 at 09:00 Hydromorphone HCl (Dilaudid) 1 mg Q3 PRN IV PAIN Last administered on 12/15/16 06:47; Admin Dose 1 MG; Start 12/04/16 at 22:00 Ondansetron HCl (Zofran Inj) 4 mg Q6H PRN IV NAUSEA AND/OR VOMITING; Start at 22:00 Lacosamide (Vimpat Liq) 75 mg BID PO Last administered on 12/14/16 21:29; Admin Dose 75 MG; Start 12/05/16 at 10:30 Pantoprazole Sodium (Protonix) 20 mg BID@06,18 PO Last administered on 05:10; Admin Dose 20 MG; Start 12/05/16 at 18:00 Miscellaneous Medication (Gi Cocktail (2)) 40 ml Q6 PRN PO HEARTBURN; Start at 12:30 Lorazepam (Ativan) 0.5 mg TID PO Last administered on 12/15/16 08:46; Admin Dose 0.5 MG; Start 12/06/16 at 21:00 Magnesium Hydroxide (Milk Of Mag) 30 ml DAILY PRN PO CONSTIPATION Last administered on 12/14/16 08:51; Admin Dose 30 ML; Start 12/07/16 at 18:30 Bisacodyl (Dulcolax) 10 mg DAILY PRN PO CONSTIPATION Last administered on 14:57; Admin Dose 10 MG; Start 12/08/16 at 14:00 Acetaminophen 650 mg 650 mg Q6H PRN PO PAIN AND OR ELEVATED TEMP Last administered on 12/10/16 14:52; Admin Dose 650 MG; Start 12/09/16 at 20:30 Ceftriaxone Sodium/Sodium Chloride (Rocephin/NS) 50 ml @ 100 mls/hr Q24H IVPB Last administered on 12/14/16 17:47; Admin Dose 100 MLS/HR; Start 12/11/16 at 17:30 Morphine Sulfate (morphine) 2 mg Q4H PRN IV PAIN Last administered on 20:04; Admin Dose 2 MG; Start 12/13/16 at 18:00 IV Flush 10 ml 10 ml PRN PRN IV IV PROTOCOL; Start 12/14/16 at 15:30 Vancomycin HCl/ Sodium Chloride (Vancocin/NS) 150 ml @ 75 mls/hr Q12H IVPB Last administered on 12/15/16t 05:10; Admin Dose 75 MLS/HR; Start 12/15/16 at 06: 00 JIMENA ACEVEDO Dec 15, 2016 09:44
[2016-12-15] MEDS ORDERED: LIDOCAINE 1% (MPF) 5 ML VIAL ONE (10:47)
--- NOTE | 2016-12-15 11:09 | RADRPT ---
PROCEDURE: US guided left thoracentesis. CLINICAL INDICATION: Shortness of breath. Left pleural effusion. TECHNIQUE: Prior to the procedure, informed consent was obtained. The risks, benefits, and alternatives were e xplained to the patient or the patient's family, including but not limited to bleeding, infection, p ain, visceral or vascular damage, shock, pneumothorax, chest tube placement, air embolism, and . The patient or the patient's family understood the risks and the alternatives and wished to proce ed with the study. Informed written consent was obtained. A procedural pause was performed. The patient's name, date of , and procedure to be performed were verified. Ultrasound of the left hemithorax was performed in the axial and sagittal planes. A left pleural eff usion is noted. Utilizing ultrasound guidance, optimal location for entry to the pleural cavity was ascertained. The overlying skin was prepped and draped in the usual sterile fashion. Approximately 10 ml of 1% Xylocaine was injected locally for pain control. Using ultrasound guidance, a 5-Wolof Yueh catheter was introduced into the left pleural space without difficulty. Fluid was aspirated. COMPARISON: None. FINDINGS: Initial ultrasound demonstrates fluid in the left pleural space. Approximately 0.900 liters of sero us fluid was aspirated and sent to the laboratory. IMPRESSION: 1. Satisfactory ultrasound-guided left thoracentesis. RPTAT: QQ .Bernabe Pierce MD, Date Time Electronically viewed and signed by .Bernabe Pierce MD, on 12/15/2016 11:09 .R/
[2016-12-15] MEDS: LACOSAMIDE (10 MG/ML PO SYG) PO SCH ×2 (11:42→22:52)
--- NOTE | 2016-12-15 11:43 | RADRPT ---
PROCEDURE: XR Chest. CLINICAL INDICATION: Shortness of breath. Post left thoracentesis. TECHNIQUE: Single frontal view. COMPARISON: 12/14/2016. FINDINGS: There is a right arm PICC line with the tip in the lower superior vena cava. There is mild atelecta sis at the lung bases, improved on the left and unchanged on the right. The heart size is normal. There is a small right pleural effusion. Previously noted moderate left pleural effusion is no long er present. There is no pneumothorax. IMPRESSION: 1. No pneumothorax following left thoracentesis. 2. Improved appearance of the left lung base and left pleural effusion no longer present. RPTAT: QQ .Bernabe Pierce MD, MD Date Time Electronically viewed and signed by .Bernabe Pierce MD, on 12/15/2016 11:43 .R/
[2016-12-15 12:17] LABS: HEMATOCRIT 24.2 % (37.0-47.0); HEMOGLOBIN 7.8 g/dl (12.0-16.0); MEAN CORPUSCULAR HEMOGLOBIN 27.3 pg (29.0-33.0); MEAN CORPUSCULAR HGB CONC 32.1 g/dl (32.0-37.0); MEAN CORPUSCULAR VOLUME 85.1 fl (82.0-101.0); MEAN PLATELET VOLUME 7.8 fl (7.4-10.4); PLATELET COUNT 481 10^3/UL (140-440); RED BLOOD COUNT 2.84 10^6/ul (4.20-5.40); UNCORRECTED WBC 5.2 10^3/ul (4.8-10.8); WHITE BLOOD COUNT 5.2 10^3/ul (4.8-10.8)
[2016-12-15 12:20] LABS: CONDITION 1; EOSINOPHILS # 0.2 10^3/ul (0.0-0.5); EOSINOPHILS % 4.4 % (0.0-7.0); LH ANALYZER COMMENTS 1; LYMPHOCYTES # 0.9 10^3/ul (0.8-2.9); LYMPHOCYTES % 16.6 % (15.0-51.0); MONOCYTE # 0.5 10^3/ul (0.3-0.9); MONOCYTES % 9.7 % (0.0-11.0); NEUTROPHIL # 3.6 10^3/ul (1.6-7.5); NEUTROPHILS % 69.3 % (39.0-77.0); SUSPECT 1
[2016-12-15 12:25] LABS: POTASSIUM 3.1 mmol/L (3.5-5.1)
[2016-12-15 12:28] LABS: CREATININE 0.66 mg/dl (0.44-1.00)
[2016-12-15 12:29] LABS: CALCIUM 7.5 mg/dl (8.4-10.2)
[2016-12-15 13:20] LABS: ANISOCYTOSIS 1+; HYPOCHROMASIA 1+
[2016-12-15] MEDS: morphine 2 MG INJ IV PRN (13:56)
[2016-12-15 14:30] LABS: FLUID GLUCOSE 91 mg/dl
[2016-12-15 14:32] LABS: FLUID TOTAL PROTEIN < 2.0 g/dl
[2016-12-15 14:40] LABS: FLUID TYPE THORACENTESIS FLUID
[2016-12-15 14:41] LABS: FLUID TYPE THORACENTESIS FLUID
[2016-12-15 15:39] LABS: FLUID APPEARANCE HAZY; FLUID RBC EST 1+; FLUID TYPE THORACENTHESIS
[2016-12-15 16:09] LABS: FLUID EOSINOPHIL 23 %; FLUID LYMPHOCYTES 32 %; FLUID MONOCYTES 13 %; FLUID NEUTROPHILS 32 %
[2016-12-15] MEDS: CEFTRIAXONE 500 MG in SOD CHLORIDE 0.9% 50 ML IVPB SCH (17:46)
--- NOTE | 2016-12-15 17:57 | CONS ---
Date/Time of Note Date/Time of Note DATE: 12/15/16 TIME: 17:49 Consult Date/Type/Reason Admit Date/Time Dec 04, 2016 at 20:35 Type of Consultation: Pulm Subjective Complaining of pain right flank. Mild shortness of breath. Objective Vital Signs Date Time Temp Pulse Resp B/P Pulse Ox O2 Delivery O2 Flow Rate FiO2 12/15/16 08:27 98.7 81 17 117/81 91 12/15/16 08:00 Nasal Cannula 2.0 Intake and Output 12/14/16 12/14/16 12/15/16 15:00 23:00 07:00 Intake Total 1740 ml 650 ml Balance 1740 ml 650 ml PHYSICAL EXAMINATION: VITAL SIGNS: As above thin cachectic lady HEENT: Pupils are equal and reactive to light. NECK: Supple, no JVD noted, no cervical adenopathy noted, no carotid bruits heard. LUNGS: Diminished air entry left base CARDIOVASCULAR: S1, S2 normal. ABDOMEN: Soft, nontender. No organomegaly or masses noted. EXTREMITIES: No clubbing, cyanosis, or edema noted. NEUROLOGIC: No focal deficits. Results/Medications Result Diagram: 12/15/16 1150 12/15/16 1150 Results 24 hrs Laboratory Tests Test 12/14/16 20:07 12/15/16 10:25 12/15/16 11:50 Activated Partial Thromboplast Time 31.1 INR International Normalized Ratio 0.84 Prothrombin Time 11.5 L Prothrombin Time Ratio 0.9 Body Fluid Appearance HAZY Body Fluid Color WALTER Body Fluid Eosinophils % 23 Body Fluid Glucose 91 Body Fluid Lactate Dehydrogenase Body Fluid Lymphocytes (%) 32 Body Fluid Monocytes % 13 Body Fluid Neutrophils % 32 Body Fluid RBC 1+ Body Fluid Total Protein < 2.0 Body Fluid Type THORACENTESIS FLUID Body Fluid Volume 950.0 Body Fluid WBC Pending Anion Gap 8 Anisocytosis 1+ Basophils # 0.0 Basophils % 0.0 Blood Morphology Comment Blood Urea Nitrogen 8 Calcium Level 7.5 L Carbon Dioxide Level 32 H Chloride Level 100 Creatinine 0.66 Eosinophils # 0.2 Eosinophils % 4.4 Glucose Level 93 Hematocrit 24.2 L Hemoglobin 7.8 L Hypochromasia 1+ Lymphocytes # 0.9 Lymphocytes % 16.6 Mean Corpuscular Hemoglobin 27.3 L Mean Corpuscular Hemoglobin Concent 32.1 Mean Corpuscular Volume 85.1 Mean Platelet Volume 7.8 Monocytes # 0.5 Monocytes % 9.7 Neutrophils # 3.6 Neutrophils % 69.3 Nucleated Red Blood Cells # 0.0 Nucleated Red Blood Cells % 0.0 Platelet Count 481 H Potassium Level 3.1 L Red Blood Count 2.84 L Red Cell Distribution Width 18.0 H Sodium Level 137 White Blood Count 5.2 Medications Current Medications Gabapentin (Neurontin) 300 mg TID PO Last administered on 12/15/16 12:32; Admin Dose 300 MG; Start 12/05/16 at 09:00 Ondansetron HCl (Zofran Inj) 4 mg Q6H PRN IV NAUSEA AND/OR VOMITING Last administered on 12/15/16 17:23; Admin Dose 4 MG; Start 12/04/16 at 22:00 Lacosamide (Vimpat Liq) 75 mg BID PO Last administered on 12/15/16 11:42; Admin Dose 75 MG; Start 12/05/16 at 10:30 Pantoprazole Sodium (Protonix) 20 mg BID@06,18 PO Last administered on 05:10; Admin Dose 20 MG; Start 12/05/16 at 18:00 Miscellaneous Medication (Gi Cocktail (2)) 40 ml Q6 PRN PO HEARTBURN; Start at 12:30 Lorazepam (Ativan) 0.5 mg TID PO Last administered on 12/15/16 12:32; Admin Dose 0.5 MG; Start 12/06/16 at 21:00 Magnesium Hydroxide (Milk Of Mag) 30 ml DAILY PRN PO CONSTIPATION Last administered on 12/14/16 08:51; Admin Dose 30 ML; Start 12/07/16 at 18:30 Bisacodyl (Dulcolax) 10 mg DAILY PRN PO CONSTIPATION Last administered on 14:57; Admin Dose 10 MG; Start 12/08/16 at 14:00 Acetaminophen 650 mg 650 mg Q6H PRN PO PAIN AND OR ELEVATED TEMP Last administered on 12/10/16 14:52; Admin Dose 650 MG; Start 12/09/16 at 20:30 Ceftriaxone Sodium/Sodium Chloride (Rocephin/NS) 50 ml @ 100 mls/hr Q24H IVPB Last administered on 12/14/16 17:47; Admin Dose 100 MLS/HR; Start 12/11/16 at 17:30 Morphine Sulfate (morphine) 2 mg Q4H PRN IV PAIN Last administered on 12/15/16 13:56; Admin Dose 2 MG; Start 12/13/16 at 18:00 IV Flush 10 ml 10 ml PRN PRN IV IV PROTOCOL; Start 12/14/16 at 15:30 Vancomycin HCl/ Sodium Chloride (Vancocin/NS) 150 ml @ 75 mls/hr Q12H IVPB Last administered on 12/15/16 05:10; Admin Dose 75 MLS/HR; Start 12/15/16 at 06: 00 Hydromorphone HCl (Dilaudid) 1 mg Q4H PRN IV PAIN Last administered on 17:14; Admin Dose 1 MG; Start 12/15/16 at 09:43 Assessment/Plan Chief Complaint/Hosp Course IMPRESSION: 1. Status post fall with traumatic pneumothorax status post chest tube drainage. s/p thoracentesis 0.9L for pleural effusion. 2. History of meningioma. 3. Hematoma. RECOMMENDATIONS: 1. repeat cxr 2. Follow up CBC to monitor hemoglobin. 3. pleural fluid studies. 4. Encourage oob. Problems: FLAQUITA BENNETT MD, [facility] Dec 15, 2016 17:56
[2016-12-15] MEDS: FUROSEMIDE 40 MG INJ IV SCH (20:06)
[2016-12-15 20:45] VITALS: BP 123/81; RESP 22
--- NOTE | 2016-12-15 21:39 | PN ---
DATE: 12/15/2016 SUBJECTIVE: No acute changes. The patient is alert, looks comfortable. No fevers. WBC 5.2, no shift, no bands. BUN 8, creatinine 0.66. MICROBIOLOGY: Blood culture repeated on 12/13 negative. ANTIMICROBIALS: The patient is on: 1. IV vancomycin. 2. IV Rocephin. PHYSICAL EXAMINATION: GENERAL: Well-developed middle-aged woman who is alert, in no distress. HEENT: Head atraumatic, normocephalic. Sclerae anicteric. Buccal mucosa pink. NECK: Supple. Trachea midline. CHEST: Rise symmetrical. Breath sounds clear. HEART: S1, S2. ABDOMEN: Soft. Bowel tones present. EXTREMITIES: Without cyanosis. ASSESSMENT: 1. Methicillin-sensitive Staphylococcus aureus bacteremia secondary to #2. 2. Methicillin-resistant Staphylococcus aureus and Escherichia coli urinary tract infection. 3. Left pneumothorax, status post chest tube placement, secondary to fall. 4. History of meningioma. 5. Anemia. PLAN: The patient remains stable on appropriate antimicrobials. Repeat blood culture on 12/13 nega tive. Continue present care. Anticipate treating with IV vancomycin for 2 weeks total. Dictated By: CARMITA ANGULO [employer]IL SC[employer] for VANDANA DEMARCO/NICOLE Conf#: [id number] DID#: [id number]
[2016-12-15 21:58] LABS: FLUID WBC'S 933 /cmm
[2016-12-16] MEDS: HYDROmorphONE 1 MG/ML SYG IV PRN ×4 (01:55→23:08)
[2016-12-16] MEDS: PANTOPRAZOLE SODIUM 20 MG TABEC PO SCH ×2 (04:45→20:06)
[2016-12-16 05:38] LABS: HEMATOCRIT 26.2 % (37.0-47.0); HEMOGLOBIN 8.5 g/dl (12.0-16.0); MEAN CORPUSCULAR HEMOGLOBIN 27.6 pg (29.0-33.0); MEAN CORPUSCULAR HGB CONC 32.3 g/dl (32.0-37.0); MEAN CORPUSCULAR VOLUME 85.4 fl (82.0-101.0); PLATELET COUNT 527 10^3/UL (140-440); RED BLOOD COUNT 3.07 10^6/ul (4.20-5.40); RED CELL DISTRIBUTION WIDTH 18.6 % (11.5-14.5); UNCORRECTED WBC 9.3 10^3/ul (4.8-10.8); WHITE BLOOD COUNT 9.3 10^3/ul (4.8-10.8)
[2016-12-16 06:35] LABS: CREATININE 0.69 mg/dl (0.44-1.00)
[2016-12-16 06:36] LABS: CALCIUM 7.8 mg/dl (8.4-10.2)
[2016-12-16 06:48] LABS: POTASSIUM 2.5 mmol/L (3.5-5.1)
[2016-12-16 06:55] LABS: CONDITION 1; LH ANALYZER COMMENTS 1
[2016-12-16] MEDS: VANCOMYCIN 750 MG in SOD CHLORIDE 0.9% 150 ML IVPB SCH (07:37)
[2016-12-16 08:01] VITALS: BP 107/67; RESP 20
[2016-12-16] MEDS: FUROSEMIDE 40 MG INJ IV SCH (08:16)
[2016-12-16] MEDS: POTASSIUM CHLORIDE 250 ML IVPB SCH ×2 (08:16→12:10)
[2016-12-16] MEDS: GABAPENTIN 300 MG CAP PO SCH ×3 (09:00→20:06)
[2016-12-16] MEDS: LORAZEPAM 0.5 MG TAB PO SCH ×4 (09:00→20:07)
[2016-12-16 09:29] LABS: EOSINOPHILS # 0.3 10^3/ul (0.0-0.5); LYMPHOCYTES # 0.9 10^3/ul (0.8-2.9); MONOCYTE # 0.6 10^3/ul (0.3-0.9); NEUTROPHIL # 7.5 10^3/ul (1.6-7.5)
[2016-12-16 09:30] LABS: PLATELETS CLUMPS RARE
[2016-12-16] MEDS: morphine 2 MG INJ IV PRN ×3 (10:13→19:11)
--- NOTE | 2016-12-16 10:14 | RADRPT ---
PROCEDURE: XR Chest 1 View. CLINICAL INDICATION: Shortness of breath, pneumonia, congestive heart failure TECHNIQUE: AP view of the chest were obtained. COMPARISON: December 15, 2016 FINDINGS: The cardiomediastinal silhouette is within normal limits. The lungs are hyperexpanded. Interstitial prominence in both lungs is stable. Scarring is noted at the lung apices. Small to moderate right pleural effusion with associated right lower lobe atelectasis/infiltrate is unchanged. Patchy left lower lobe infiltrates combined small pleural effusion are stable, given differences in technique. Right-sided PICC line is unchanged. Osseous structures are osteopenic and are unchanged. IMPRESSION: Hyperexpanded lungs with stable interstitial prominence in both lungs. Stable scarring at the lung apices. Stable small to moderate right pleural effusion with associated right lower lobe atelectasis/infiltr ate. Stable left lower lobe infiltrates, combined with small pleural effusion. RPTAT: AA .Jefry Fields MD, MD Date Time Electronically viewed and signed by .Jefry Fields MD, on 12/16/2016 10:13 .P/
[2016-12-16] MEDS: LACOSAMIDE (10 MG/ML PO SYG) PO SCH ×2 (11:56→23:06)
--- NOTE | 2016-12-16 12:17 | CONS ---
Date/Time of Note Date/Time of Note DATE: 12/16/16 TIME: 12:16 Consult Date/Type/Reason Admit Date/Time Dec 04, 2016 at 20:35 Type of Consultation: Pulm Subjective Patient underwent thoracentesis left lung with 0.9 L fluid. Fluid was serosanguineous not bloody. Objective Vital Signs Date Time Temp Pulse Resp B/P Pulse Ox O2 Delivery O2 Flow Rate FiO2 12/16/16 08:01 97.4 104 20 107/67 91 12/16/16 04:46 2.0 12/15/16 20:00 Nasal Cannula Intake and Output 12/15/16 12/15/16 12/16/16 15:00 23:00 07:00 Intake Total 150 ml 200 ml 700 ml Balance 150 ml 200 ml 700 ml PHYSICAL EXAMINATION: VITAL SIGNS: As above thin cachectic lady HEENT: Pupils are equal and reactive to light. NECK: Supple, no JVD noted, no cervical adenopathy noted, no carotid bruits heard. LUNGS: Diminished air entry left base CARDIOVASCULAR: S1, S2 normal. ABDOMEN: Soft, nontender. No organomegaly or masses noted. EXTREMITIES: No clubbing, cyanosis, or edema noted. NEUROLOGIC: No focal deficits. Results/Medications Result Diagram: 12/16/165 12/16/165 Results 24 hrs Laboratory Tests Test 12/16/16 04:55 Anion Gap 9 Blood Morphology Comment Blood Urea Nitrogen 7 Calcium Level 7.8 L Carbon Dioxide Level 33 H Chloride Level 101 Clumped Platelets RARE Creatinine 0.69 Differential Comment MANUAL DIFF Eosinophils # 0.3 Eosinophils % 3.0 Glucose Level 88 Hematocrit 26.2 L Hemoglobin 8.5 L Lymphocytes # 0.9 Lymphocytes % 10.0 L Mean Corpuscular Hemoglobin 27.6 L Mean Corpuscular Hemoglobin Concent 32.3 Mean Corpuscular Volume 85.4 Mean Platelet Volume 8.0 Monocytes # 0.6 Monocytes % 6.0 Neutrophils # 7.5 Neutrophils % 81.0 H Nucleated Red Blood Cells # Nucleated Red Blood Cells % 2.0 H Platelet Count 527 H Potassium Level 2.5 *L Red Blood Count 3.07 L Red Cell Distribution Width 18.6 H Sodium Level 140 White Blood Count 9.3 # Medications Current Medications Gabapentin (Neurontin) 300 mg TID PO Last administered on 12/16/16t 11:57; Admin Dose 300 MG; Start 12/05/16 at 09:00 Ondansetron HCl (Zofran Inj) 4 mg Q6H PRN IV NAUSEA AND/OR VOMITING Last administered on 12/15/16 17:23; Admin Dose 4 MG; Start 12/04/16 at 22:00 Lacosamide (Vimpat Liq) 75 mg BID PO Last administered on 12/16/16 11:56; Admin Dose 75 MG; Start 12/05/16 at 10:30 Pantoprazole Sodium (Protonix) 20 mg BID@06,18 PO Last administered on 20:05; Admin Dose 20 MG; Start 12/05/16 at 18:00 Miscellaneous Medication (Gi Cocktail (2)) 40 ml Q6 PRN PO HEARTBURN; Start at 12:30 Lorazepam (Ativan) 0.5 mg TID PO Last administered on 12/16/16 11:57; Admin Dose 0.5 MG; Start 12/06/16 at 21:00 Magnesium Hydroxide (Milk Of Mag) 30 ml DAILY PRN PO CONSTIPATION Last administered on 12/14/16 08:51; Admin Dose 30 ML; Start 12/07/16 at 18:30 Bisacodyl (Dulcolax) 10 mg DAILY PRN PO CONSTIPATION Last administered on 14:57; Admin Dose 10 MG; Start 12/08/16 at 14:00 Acetaminophen 650 mg 650 mg Q6H PRN PO PAIN AND OR ELEVATED TEMP Last administered on 12/10/16 14:52; Admin Dose 650 MG; Start 12/09/16 at 20:30 Ceftriaxone Sodium/Sodium Chloride (Rocephin/NS) 50 ml @ 100 mls/hr Q24H IVPB Last administered on 12/15/16 17:46; Admin Dose 100 MLS/HR; Start 12/11/16 at 17 :30 Morphine Sulfate (morphine) 2 mg Q4H PRN IV PAIN Last administered on 12/16/16 10:13; Admin Dose 2 MG; Start 12/13/16 at 18:00 IV Flush 10 ml 10 ml PRN PRN IV IV PROTOCOL; Start 12/14/16 at 15:30 Vancomycin HCl/ Sodium Chloride (Vancocin/NS) 150 ml @ 75 mls/hr Q12H IVPB Last administered on 12/16/16 07:37; Admin Dose 75 MLS/HR; Start 12/15/16 at 06: 00 Hydromorphone HCl (Dilaudid) 1 mg Q4H PRN IV PAIN Last administered on 11:58; Admin Dose 1 MG; Start 12/15/16 at 09:43 Furosemide 40 mg 40 mg DAILY IV Last administered on 12/16/16 08:16; Admin Dose 40 MG; Start 12/15/16 at 18:30 Potassium Chloride (KCl 40 MEQ/250 ML NS) 250 ml @ 62.5 mls/hr Q4H IVPB Last administered on 12/16/16 12:10; Admin Dose 62.5 MLS/HR; Start 12/16/16 at 08:30; Stop 12/16/16 at 16:29 Miscellaneous Information (*Rx Drug Level Order Reminder*) VANCO TROUGH @ 1, 700 ON... ONCE ONCE XX ; Start 12/16/16 at 17:00; Stop 12/16/16 at 17:01 Assessment/Plan Chief Complaint/Hosp Course IMPRESSION: 1. Status post fall with traumatic pneumothorax status post chest tube drainage. s/p thoracentesis 0.9L for pleural effusion. 2. History of meningioma. 3. Hematoma. RECOMMENDATIONS: 1. repeat cxr shows no reaccumulation 2. Follow up CBC to monitor hemoglobin. 3. pleural fluid studies. 4. Encourage oob. Discharge planning okay with me follow-up with me in the office Problems: FLAQUITA BENNETT MD, [facility] Dec 16, 2016 12:17
--- NOTE | 2016-12-16 15:10 | CONS ---
Date/Time of Note Date/Time of Note DATE: 12/16/16 TIME: 15:09 Assessment/Plan Assessment/Plan Chief Complaint/Hosp Course SUBJECTIVE: No acute changes. The patient is alert, looks comfortable. No fevers. MICROBIOLOGY: Blood culture repeated on 12/13 negative. ANTIMICROBIALS: The patient is on: 1. IV vancomycin. 2. IV Rocephin. PHYSICAL EXAMINATION: GENERAL: Well-developed middle-aged woman who is alert, in no distress. HEENT: Head atraumatic, normocephalic. Sclerae anicteric. Buccal mucosa pink. NECK: Supple. Trachea midline. CHEST: Rise symmetrical. Breath sounds clear. HEART: S1, S2. ABDOMEN: Soft. Bowel tones present. EXTREMITIES: Without cyanosis. ASSESSMENT: 1. Methicillin-sensitive Staphylococcus aureus bacteremia secondary to #2. 2. Methicillin-resistant Staphylococcus aureus and Escherichia coli urinary tract infection. 3. Left pneumothorax, status post chest tube placement, secondary to fall. 4. History of meningioma. 5. Anemia. PLAN: The patient remains stable on appropriate antimicrobials. Repeat blood culture on 12/13 negative. Continue present care. Anticipate dc on IV vancomycin for 8 more days. DW staff Problems: Consultation Date/Type/Reason Admit Date/Time Dec 04, 2016 at 20:35 Type of Consultation: id Exam/Review of Systems Vital Signs Vitals Vital Signs Date Time Temp Pulse Resp B/P Pulse Ox O2 Delivery O2 Flow Rate FiO2 12/16/16 08:01 97.4 104 20 107/67 91 12/16/16 08:00 2.0 12/15/16 20:00 Nasal Cannula Intake and Output 12/15/16 12/15/16 12/16/16 15:00 23:00 07:00 Intake Total 150 ml 200 ml 700 ml Balance 150 ml 200 ml 700 ml Results Result Diagram: 12/16/16 0455 12/16/16 0455 Results 24 hrs Laboratory Tests Test 12/16/16 04:55 Anion Gap 9 Blood Morphology Comment Blood Urea Nitrogen 7 Calcium Level 7.8 L Carbon Dioxide Level 33 H Chloride Level 101 Clumped Platelets RARE Creatinine 0.69 Differential Comment MANUAL DIFF Eosinophils # 0.3 Eosinophils % 3.0 Glucose Level 88 Hematocrit 26.2 L Hemoglobin 8.5 L Lymphocytes # 0.9 Lymphocytes % 10.0 L Mean Corpuscular Hemoglobin 27.6 L Mean Corpuscular Hemoglobin Concent 32.3 Mean Corpuscular Volume 85.4 Mean Platelet Volume 8.0 Monocytes # 0.6 Monocytes % 6.0 Neutrophils # 7.5 Neutrophils % 81.0 H Nucleated Red Blood Cells # Nucleated Red Blood Cells % 2.0 H Platelet Count 527 H Potassium Level 2.5 *L Red Blood Count 3.07 L Red Cell Distribution Width 18.6 H Sodium Level 140 White Blood Count 9.3 # Medications Medications Current Medications Gabapentin (Neurontin) 300 mg TID PO Last administered on 12/16/16 11:57; Admin Dose 300 MG; Start 12/05/16 at 09:00 Ondansetron HCl (Zofran Inj) 4 mg Q6H PRN IV NAUSEA AND/OR VOMITING Last administered on 12/15/16 17:23; Admin Dose 4 MG; Start 12/04/16 at 22:00 Lacosamide (Vimpat Liq) 75 mg BID PO Last administered on 12/16/16 11:56; Admin Dose 75 MG; Start 12/05/16 at 10:30 Pantoprazole Sodium (Protonix) 20 mg BID@06,18 PO Last administered on 20:05; Admin Dose 20 MG; Start 12/05/16 at 18:00 Miscellaneous Medication (Gi Cocktail (2)) 40 ml Q6 PRN PO HEARTBURN; Start at 12:30 Lorazepam (Ativan) 0.5 mg TID PO Last administered on 12/16/16 11:57; Admin Dose 0.5 MG; Start 12/06/16 at 21:00 Magnesium Hydroxide (Milk Of Mag) 30 ml DAILY PRN PO CONSTIPATION Last administered on 12/14/16 08:51; Admin Dose 30 ML; Start 12/07/16 at 18:30 Bisacodyl (Dulcolax) 10 mg DAILY PRN PO CONSTIPATION Last administered on 14:57; Admin Dose 10 MG; Start 12/08/16 at 14:00 Acetaminophen 650 mg 650 mg Q6H PRN PO PAIN AND OR ELEVATED TEMP Last administered on 12/10/16 14:52; Admin Dose 650 MG; Start 12/09/16 at 20:30 Ceftriaxone Sodium/Sodium Chloride (Rocephin/NS) 50 ml @ 100 mls/hr Q24H IVPB Last administered on 12/15/16 17:46; Admin Dose 100 MLS/HR; Start 12/11/16 at 17 :30 Morphine Sulfate (morphine) 2 mg Q4H PRN IV PAIN Last administered on 12/16/16 14:17; Admin Dose 2 MG; Start 12/13/16 at 18:00 IV Flush 10 ml 10 ml PRN PRN IV IV PROTOCOL; Start 12/14/16 at 15:30 Vancomycin HCl/ Sodium Chloride (Vancocin/NS) 150 ml @ 75 mls/hr Q12H IVPB Last administered on 12/16/16 07:37; Admin Dose 75 MLS/HR; Start 12/15/16 at 06: 00 Hydromorphone HCl (Dilaudid) 1 mg Q4H PRN IV PAIN Last administered on 11:58; Admin Dose 1 MG; Start 12/15/16 at 09:43 Furosemide 40 mg 40 mg DAILY IV Last administered on 12/16/16 08:16; Admin Dose 40 MG; Start 12/15/16 at 18:30 Potassium Chloride (KCl 40 MEQ/250 ML NS) 250 ml @ 62.5 mls/hr Q4H IVPB Last administered on 12/16/16 12:10; Admin Dose 62.5 MLS/HR; Start 12/16/16 at 08:30; Stop 12/16/16 at 16:29 Miscellaneous Information (*Rx Drug Level Order Reminder*) VANCO TROUGH @ 1, 700 ON... ONCE ONCE XX ; Start 12/16/16 at 17:00; Stop 12/16/16 at 17:01 CARMITA ANGULO NP Dec 16, 2016 15:10
--- NOTE | 2016-12-16 15:19 | PDOCDIS ---
Discharge Instructions CONDITION Patient Condition: Stable HOME CARE INSTRUCTIONS: Special Diet: regular ACTIVITY: Activity Restrictions: Slowly Increase Activity FOLLOW UP/APPOINTMENTS Appointments Please take your medications as prescribed and see your doctor in the clinic in 1 week. JIMENA ACEVEDO Dec 16, 2016 15:19
[2016-12-16] MEDS ORDERED: Vancomycin Iv Per Pharmacy XX (15:20)
--- NOTE | 2016-12-16 15:37 | PDOCDIS ---
Discharge Instructions CONDITION Patient Condition: Stable HOME CARE INSTRUCTIONS: Special Diet: regular ACTIVITY: Activity Restrictions: Slowly Increase Activity FOLLOW UP/APPOINTMENTS Appointments Ok to shower cautiously but do not let your incision site in your chest get too wet or soaked, thanks. JIMENA ACEVEDO Dec 16, 2016 15:37
[2016-12-16] MEDS ORDERED: HYDR-902 PO (15:38)
--- NOTE | 2016-12-16 16:25 | DS ---
DATE OF ADMISSION: 12/04/2016 DATE OF DISCHARGE: 12/16/2016 HOSPITAL COURSE: This is a 51-year-old female originally admitted on 12/05/2016 and being discharge d home on 12/16/2016 pending ABG results. The patient initially presented on 12/05/2016 with fall a nd shortness of breath. She was found with a large left sided pneumothorax after having a ground le nikita fall. She had a chest tube placed and there was reexpansion of the left lung. She was admitted and seen by multiple specialists during this hospital stay, including cardiothoracic surgery team, pulmonary team and infectious disease team. The chest tube was placed on 12/05/2016 and removed on 12/09/2016. A repeat chest x-ray after that, however, showed worsening atelectasis and infiltrate involving the left lower lobe with a small focal infiltrate again seen within the right upper lobe, but there were no signs of any further pneumothorax and then a CT chest was performed after that, th at showed a possible small hematoma on the pleural space. The patient was evaluated again by cardio thoracic surgery team and underwent thoracentesis for about 0.9 liters of fluid was removed. It was determined that this fluid was not hemorrhagic in nature, so the decision for possible VATS procedu re was canceled. In the meantime, the patient was treated also for E. coli and MRSA urinary tract i nfection and also 1 out of 2 blood cultures was positive for MRSA. She was placed on antibiotics an d seen by infectious disease team for that. Her white blood cell count was stable. Her fevers impr vicente. She was able to work with physical therapy to ambulate and tolerate a p.o. diet and we are g oing to check an ABG today to see if the patient qualifies for home oxygen. If she does, we will se t that up before she goes today. She will need to follow up with primary care doctor and pulmonary team in the clinic in the next 1 to 2 weeks and also get a repeat chest x-ray in the next 2 weeks as well. We will also order for home health nursing for dressing changes where the patient had the ch est tube placed. The patient will go home today with the following medications: 1. Vancomycin IV dosing per pharmacy to continue until 12/24/2016. 2. [place] 10/325 q.6h. p.r.n. 3. Colace 100 mg p.o. b.i.d. 4. ProAir 2 puffs inhaled q.4h. p.r.n. 5. Gabapentin 300 mg t.i.d. 6. Vimpat 75 mg b.i.d. seizures, 7. Protonix 40 mg b.i.d. FOLLOWUP: She will need to follow up again with primary care doctor and pulmonary doctor in the [facility] in the next 1 week and get repeat chest x-ray in the next 2 weeks. FINAL DIAGNOSES: 1. Status post fall with traumatic left-sided pneumothorax, bleeding, shortness of breath, status p ost chest tube placement with removal of chest tube resolution of pneumothorax. 2. Subcutaneous emphysema, secondary to fall and now resolved. 3. Sepsis secondary to methicillin-resistant Staphylococcus aureus bacteremia and MRSA and E. coli urinary tract infection, now improved on IV antibiotics. 4. Atrial fibrillation, left kidney with preserved renal function. 5. Chronic nonobstructing nephrolithiasis. 6. Iron deficiency anemia with hemoglobin stable. 7. Anxiety. 8. Prior history of frontal lobe meningioma. 9. Fibromyalgia. 10. Renal insufficiency, resolved. Time spent discharging patient 50 minutes. Dictated By: JIMENA RÍOS Conf#: [id number] DID#: [id number]
[2016-12-16 16:43] LABS: AADO2 Arterial 29.5 mmHg (7.0-24.0); Allen Test ACCEPTAB; Arterial Base Excess 6.4 mmol/L (-3.0-3); Arterial COHb 0.1 % (0.0-3.0); Arterial Fraction of Oxyhgb 92.8 % (93.0-99.0); Arterial HCO3 30.7 mmol/L (22.0-26.0); Arterial MetHb 0.4 % (0.0-1.5); Arterial Total Hemglobin 8.5 g/dl (12.0-18.0); MODE ROOM AIR
[2016-12-16] MEDS: CEFTRIAXONE 500 MG in SOD CHLORIDE 0.9% 50 ML IVPB SCH (20:06)
[2016-12-16] MEDS ORDERED: POTASSIUM CHLORIDE (SR) 20 MEQ TAB PO STA (22:21)
[2016-12-16] MEDS: VANCOMYCIN 500MG/NS (PMX) 100 ML IVPB SCH (23:06)
[2016-12-17] MEDS: HYDROmorphONE 1 MG/ML SYG IV PRN ×3 (03:11→10:58)
[2016-12-17] MEDS: PANTOPRAZOLE SODIUM 20 MG TABEC PO SCH (06:34)
[2016-12-17 06:46] LABS: BASOPHILS % 0.5 % (0.0-2.0); EOSINOPHILS # 0.4 10^3/ul (0.0-0.5); EOSINOPHILS % 7.9 % (0.0-7.0); HEMATOCRIT 22.7 % (37.0-47.0); HEMOGLOBIN 7.3 g/dl (12.0-16.0); LYMPHOCYTES % 18.7 % (15.0-51.0); MEAN CORPUSCULAR HEMOGLOBIN 27.5 pg (29.0-33.0); MEAN CORPUSCULAR HGB CONC 32.1 g/dl (32.0-37.0); MEAN CORPUSCULAR VOLUME 85.6 fl (82.0-101.0); MONOCYTE # 0.4 10^3/ul (0.3-0.9); MONOCYTES % 7.7 % (0.0-11.0); NEUTROPHIL # 3.6 10^3/ul (1.6-7.5); NEUTROPHILS % 65.2 % (39.0-77.0); PLATELET COUNT 481 10^3/UL (140-440); RED BLOOD COUNT 2.65 10^6/ul (4.20-5.40); RED CELL DISTRIBUTION WIDTH 18.6 % (11.5-14.5); UNCORRECTED WBC 5.6 10^3/ul (4.8-10.8); WHITE BLOOD COUNT 5.6 10^3/ul (4.8-10.8)
[2016-12-17 07:31] LABS: POTASSIUM 3.2 mmol/L (3.5-5.1)
[2016-12-17 07:33] LABS: CREATININE 0.6 mg/dl (0.44-1.00)
[2016-12-17 07:34] LABS: CALCIUM 7.5 mg/dl (8.4-10.2)
[2016-12-17 07:55] LABS: CONDITION 1; LH ANALYZER COMMENTS 1
[2016-12-17 08:03] VITALS: BP 116/69; RESP 18
[2016-12-17] MEDS: GABAPENTIN 300 MG CAP PO SCH ×2 (08:12→12:34)
[2016-12-17] MEDS: LORAZEPAM 0.5 MG TAB PO SCH ×2 (08:12→12:34)
[2016-12-17] MEDS: FUROSEMIDE 40 MG INJ IV SCH (08:12)
[2016-12-17] MEDS: LACOSAMIDE (10 MG/ML PO SYG) PO SCH (10:24)
[2016-12-17] MEDS: VANCOMYCIN 500MG/NS (PMX) 100 ML IVPB SCH (10:26)
[2016-12-17] MEDS ORDERED: HYDROCODONE/APAP (10/325) TAB PO PRN (14:10)
[2016-12-17] MEDS ORDERED: NON-FORMULARY/PATIENT OWN MED ([Vancomycin Iv Per Pharmacy] (Vanco Iv Per Pharmacy) 0 EA) XX SCH (14:30)
--- NOTE | 2016-12-17 14:34 | CONS ---
Date/Time of Note Date/Time of Note DATE: 12/17/16 TIME: 14:30 Consult Date/Type/Reason Admit Date/Time Dec 04, 2016 at 20:35 Type of Consultation: pulmonary Subjective Patient remained stable no significant shortness of breath Objective Vital Signs Date Time Temp Pulse Resp B/P Pulse Ox O2 Delivery O2 Flow Rate FiO2 12/17/16 08:03 98.3 91 18 116/69 96 12/17/16 02:41 2.0 12/16/16 20:00 Nasal Cannula Intake and Output 12/16/16 12/16/16 12/17/16 14:59 22:59 06:59 Intake Total 50 ml 340 ml Balance 50 ml 340 ml PHYSICAL EXAMINATION: VITAL SIGNS: As above thin cachectic lady HEENT: Pupils are equal and reactive to light. NECK: Supple, no JVD noted, no cervical adenopathy noted, no carotid bruits heard. LUNGS: Diminished air entry left base CARDIOVASCULAR: S1, S2 normal. ABDOMEN: Soft, nontender. No organomegaly or masses noted. EXTREMITIES: No clubbing, cyanosis, or edema noted. NEUROLOGIC: No focal deficits. Results/Medications Result Diagram: 12/17/16 0430 12/17/16 0430 Results 24 hrs Laboratory Tests Test 12/16/16 15:12 12/16/16 17:20 12/17/16 04:30 Arterial Blood HCO3 30.7 H Arterial Blood Base Excess 6.4 H Arterial Blood Oxygen Saturation 93.3 L Yahir Test ACCEPTAB Arterial Blood Gas Puncture Site Left Radial Arterial Blood Carboxyhemoglobin 0.1 Arterial Blood Date Drawn 12/16/2016 4:34:01 PM Arterial Blood Methemoglobin 0.4 Arterial Blood pCO2 (Temp correct) 43.0 Arterial Blood pH (Temp corrected) 7.471 H Arterial Blood pO2 (Temp corrected) 68.7 L Blood Gas A-a O2 Differential 29.5 H Blood Gas Modality ROOM AIR Blood Gas Notified Time 12/16/2016 4:42:52 PM Blood Gas Notified Heidy CoreasRAILROAD ENGINEER Blood Gas Specimen Source Blood arterial Blood Gas Temperature 37.0 FiO2 21.0 Oxyhemoglobin Percent 92.8 L Total Hemoglobin 8.5 L Potassium Level 3.3 L 3.2 L Vancomycin Level Trough 21.1 *H Anion Gap 7 L Basophils # 0.0 Basophils % 0.5 Blood Morphology Comment Blood Urea Nitrogen 10 Calcium Level 7.5 L Carbon Dioxide Level 31 Chloride Level 104 Creatinine 0.60 Eosinophils # 0.4 Eosinophils % 7.9 H Glucose Level 71 Hematocrit 22.7 L Hemoglobin 7.3 L Lymphocytes # 1.0 Lymphocytes % 18.7 Mean Corpuscular Hemoglobin 27.5 L Mean Corpuscular Hemoglobin Concent 32.1 Mean Corpuscular Volume 85.6 Mean Platelet Volume 8.0 Monocytes # 0.4 Monocytes % 7.7 Neutrophils # 3.6 Neutrophils % 65.2 Nucleated Red Blood Cells # 0.0 Nucleated Red Blood Cells % 0.0 Platelet Count 481 H Red Blood Count 2.65 L Red Cell Distribution Width 18.6 H Sodium Level 139 White Blood Count 5.6 # Medications Current Medications Gabapentin (Neurontin) 300 mg TID PO Last administered on 12/17/16 12:34; Admin Dose 300 MG; Start 12/05/16 at 09:00 Ondansetron HCl (Zofran Inj) 4 mg Q6H PRN IV NAUSEA AND/OR VOMITING Last administered on 12/15/16 17:23; Admin Dose 4 MG; Start 12/04/16 at 22:00 Lacosamide (Vimpat Liq) 75 mg BID PO Last administered on 12/17/16 10:24; Admin Dose 75 MG; Start 12/05/16 at 10:30 Pantoprazole Sodium (Protonix) 20 mg BID@06,18 PO Last administered on 06:34; Admin Dose 20 MG; Start 12/05/16 at 18:00 Miscellaneous Medication (Gi Cocktail (2)) 40 ml Q6 PRN PO HEARTBURN; Start at 12:30 Lorazepam (Ativan) 0.5 mg TID PO Last administered on 12/17/16 12:34; Admin Dose 0.5 MG; Start 12/06/16 at 21:00 Magnesium Hydroxide (Milk Of Mag) 30 ml DAILY PRN PO CONSTIPATION Last administered on 12/14/16 08:51; Admin Dose 30 ML; Start 12/07/16 at 18:30 Bisacodyl (Dulcolax) 10 mg DAILY PRN PO CONSTIPATION Last administered on 14:57; Admin Dose 10 MG; Start 12/08/16 at 14:00 Acetaminophen 650 mg 650 mg Q6H PRN PO PAIN AND OR ELEVATED TEMP Last administered on 12/10/16 14:52; Admin Dose 650 MG; Start 12/09/16 at 20:30 Ceftriaxone Sodium/Sodium Chloride (Rocephin/NS) 50 ml @ 100 mls/hr Q24H IVPB Last administered on 12/16/16 20:06; Admin Dose 100 MLS/HR; Start 12/11/16 at 17 :30 Morphine Sulfate (morphine) 2 mg Q4H PRN IV PAIN Last administered on 12/16/16 19:11; Admin Dose 2 MG; Start 12/13/16 at 18:00 IV Flush (NS 10 ml) 10 ml PRN PRN IV IV PROTOCOL; Start 12/14/16 at 15:30 Hydromorphone HCl (Dilaudid) 1 mg Q4H PRN IV PAIN Last administered on 10:58; Admin Dose 1 MG; Start 12/15/16 at 09:43 Furosemide 40 mg 40 mg DAILY IV Last administered on 12/17/16 08:12; Admin Dose 40 MG; Start 12/15/16 at 18:30 Vancomycin HCl (Vancocin) 100 ml @ 100 mls/hr Q12H IVPB Last administered on 10:26; Admin Dose 100 MLS/HR; Start 12/16/16 at 23:00 Acetaminophen/ Hydrocodone Bitart ([place] (10/325)) 1 tab Q6H PRN PO PAIN LEVEL 4-7 Last administered on 12/17/16 14:21; Admin Dose 1 TAB; Start 12/17/16 at 14: 10 Assessment/Plan Chief Complaint/Hosp Course IMPRESSION: 1. Status post fall with traumatic pneumothorax status post chest tube drainage. s/p thoracentesis 0.9L for pleural effusion. 2. History of meningioma. 3. Hematoma. RECOMMENDATIONS: 1. repeat cxr shows no reaccumulation 2. Follow up CBC to monitor hemoglobin. 3. pleural fluid studies. 4. Encourage oob. Discharge planning okay with me follow-up with me in the office Problems: FLAQUITA BENNETT MD, FCCP Dec 17, 2016 14:34
--- NOTE | 2016-12-17 14:37 | DS ---
Date/Time of Note Date/Time of Note DATE: 12/17/16 TIME: 14:36 Discharge Summary Admission/Discharge Info Admit Date/Time Dec 04, 2016 at 20:35 Discharge Date/Time Final Diagnosis 1. Status post fall with traumatic left-sided pneumothorax, bleeding, shortness of breath, status post chest tube placement with removal of chest tube resolution of pneumothorax. 2. Subcutaneous emphysema, secondary to fall and now resolved. 3. Sepsis secondary to methicillin-resistant Staphylococcus aureus bacteremia and MRSA and E. coli urinary tract infection, now improved on IV antibiotics. 4. Atrial fibrillation, left kidney with preserved renal function. 5. Chronic nonobstructing nephrolithiasis. 6. Iron deficiency anemia with hemoglobin stable. 7. Anxiety. 8. Prior history of frontal lobe meningioma. 9. Fibromyalgia. 10. Renal insufficiency, resolved. Time spent discharging patient 50 minutes. Hospital Course 51-year-old female originally admitted on 12/05/2016 and being discharged home on 12/17/2016. The patient initially presented on 12/05/2016 with fall and shortness of breath. She was found with a large left sided pneumothorax after having a ground level fall. She had a chest tube placed and there was reexpansion of the left lung. She was admitted and seen by multiple specialists during this hospital stay, including cardiothoracic surgery team, pulmonary team and infectious disease team. The chest tube was placed on 2016 and removed on 12/09/2016. A repeat chest x-ray after that, however, showed worsening atelectasis and infiltrate involving the left lower lobe with a small focal infiltrate again seen within the right upper lobe, but there were no signs of any further pneumothorax and then a CT chest was performed after that, that showed a possible small hematoma on the pleural space. The patient was evaluated again by cardiothoracic surgery team and underwent thoracentesis for about 0.9 liters of fluid was removed. It was determined that this fluid was not hemorrhagic in nature, so the decision for possible VATS procedure was canceled. In the meantime, the patient was treated also for E. coli and MRSA urinary tract infection and also 1 out of 2 blood cultures was positive for MRSA. She was placed on antibiotics and seen by infectious disease team for that. Her white blood cell count was stable. Her fevers improved. She was able to work with physical therapy to ambulate and tolerate a p.o. diet and we are going to check an ABG today to see if the patient qualifies for home oxygen. If she does, we will set that up before she goes today. She will need to follow up with primary care doctor and pulmonary team in the clinic in the next 1 to 2 weeks and also get a repeat chest x-ray in the next 2 weeks as well. We will also order for home health nursing for dressing changes where the patient had the chest tube placed. The patient will go home today with the following medications: 1. Vancomycin IV dosing per pharmacy to continue until 12/24/2016. 2. [place] 10/325 q.6h. p.r.n. 3. Colace 100 mg p.o. b.i.d. 4. ProAir 2 puffs inhaled q.4h. p.r.n. 5. Gabapentin 300 mg t.i.d. 6. Vimpat 75 mg b.i.d. seizures, 7. Protonix 40 mg b.i.d. 8. Ativan 0.5 mg PO Q12 hrs prn 9. Lasix 20 mg PO Qday Home Meds Active Scripts Hydrocodone/Acetaminophen ([place] 10-325 Tablet) 1 Each Tablet, 1 EACH PO Q6, # 20 TAB Prov:JIMENA ACEVEDO S. 12/16/16 [Vancomycin Iv Per Pharmacy] 1 EA EACH No Conflict Check, 0 EA XX .PER PROTOCOL Prov:JIMENA ACEVEDO S. 12/16/16 Docusate Sodium* (Colace*) 100 Mg Capsule, 100 MG PO BID, #14 CAP Prov:RONNIE BARRAZA. 12/11/16 Albuterol Sulfate (Proair Respiclick) 90 Mcg Aer.pow.ba, 2 PUFFS INHALATION Q4H Y for SHORTNESS OF BREATH, #1 BOTTLE Prov:RONNIE BARRAZA. 12/11/16 Reported Medications Lacosamide (Vimpat) 50 Mg Tablet, 75 MG PO BID for SEIZURES, TAB 12/04/16 Pantoprazole* (Protonix*) 20 Mg Tablet.dr, 20 MG PO BID, TAB 12/04/16 Gabapentin* (Neurontin*) 300 Mg Capsule, 300 MG PO TID, #90 CAP 12/04/16 Discontinued Reported Medications Lorazepam* (Lorazepam*) 1 Mg Tablet, 1 MG PO TID, #30 TAB 12/04/16 Pending Labs Laboratory Tests Test 12/16/16 15:12 12/16/16 17:20 12/17/16 04:30 Arterial Blood HCO3 30.7mmol/L (22.0-26.0) Arterial Blood Base Excess 6.4mmol/L (-3.0-3) Arterial Blood Oxygen Saturation 93.3mmHG (95.0-98.0) Yahir Test ACCEPTAB Arterial Blood Gas Puncture Site Left Radial Arterial Blood Carboxyhemoglobin 0.1% (0.0-3.0) Arterial Blood Date Drawn 12/16/2016 4:34:01 PM Arterial Blood Methemoglobin 0.4% (0.0-1.5) Arterial Blood pCO2 (Temp correct) 43.0mmhg (35-45) Arterial Blood pH (Temp corrected) 7.471 (7.350-7.450) Arterial Blood pO2 (Temp corrected) 68.7mmHG (80-100.0) Blood Gas A-a O2 Differential 29.5mmHg (7.0-24.0) Blood Gas Modality ROOM AIR Blood Gas Notified Time 12/16/2016 4:42:52 PM Blood Gas Notified Whom M.D[facility] Blood Gas Specimen Source Blood arterial Blood Gas Temperature 37.0C FiO2 21.0% Oxyhemoglobin Percent 92.8% (93.0-99.0) Total Hemoglobin 8.5g/dl (12.0-18.0) Potassium Level 3.3mmol/L (3.5-5.1) 3.2mmol/L (3.5-5.1) Vancomycin Level Trough 21.1ug/ml (10.0-20.0) Anion Gap 7 (8-16) Basophils # 0.010^3/ul (0.0-0.1) Basophils % 0.5% (0.0-2.0) Blood Morphology Comment Blood Urea Nitrogen 10mg/dl (7-20) Calcium Level 7.5mg/dl (8.4-10.2) Carbon Dioxide Level 31mmol/L (21-31) Chloride Level 104mmol/L (97-110) Creatinine 0.60mg/dl (0.44-1.00) Eosinophils # 0.410^3/ul (0.0-0.5) Eosinophils % 7.9% (0.0-7.0) Glucose Level 71mg/dl (70-220) Hematocrit 22.7% (37.0-47.0) Hemoglobin 7.3g/dl (12.0-16.0) Lymphocytes # 1.010^3/ul (0.8-2.9) Lymphocytes % 18.7% (15.0-51.0) Mean Corpuscular Hemoglobin 27.5pg (29.0-33.0) Mean Corpuscular Hemoglobin Concent 32.1g/dl (32.0-37.0) Mean Corpuscular Volume 85.6fl (82.0-101.0) Mean Platelet Volume 8.0fl (7.4-10.4) Monocytes # 0.410^3/ul (0.3-0.9) Monocytes % 7.7% (0.0-11.0) Neutrophils # 3.610^3/ul (1.6-7.5) Neutrophils % 65.2% (39.0-77.0) Nucleated Red Blood Cells # 0.010^3/ul (0.0-0.0) Nucleated Red Blood Cells % 0.0/100WBC (0.0-0.0) Platelet Count 27484^3/UL (140-440) Red Blood Count 2.6510^6/ul (4.20-5.40) Red Cell Distribution Width 18.6% (11.5-14.5) Sodium Level 139mmol/L (135-144) White Blood Count 5.610^3/ul (4.8-10.8) JIMENA ACEVEDO Dec 17, 2016 14:37
[2016-12-17] MEDS ORDERED: ALBUTEROL HFA 8 GM INHALER INH PRN (15:00)
--- NOTE | 2016-12-17 15:07 | CONS ---
Date/Time of Note Date/Time of Note DATE: 12/17/16 TIME: 15:06 Assessment/Plan Assessment/Plan Chief Complaint/Hosp Course SUBJECTIVE: No acute changes. The patient is alert, looks comfortable. No fevers. MICROBIOLOGY: Blood culture repeated on 12/13 negative. ANTIMICROBIALS: The patient is on: 1. IV vancomycin. 2. IV Rocephin. PHYSICAL EXAMINATION: GENERAL: Well-developed middle-aged woman who is alert, in no distress. HEENT: Head atraumatic, normocephalic. Sclerae anicteric. Buccal mucosa pink. NECK: Supple. Trachea midline. CHEST: Rise symmetrical. Breath sounds clear. HEART: S1, S2. ABDOMEN: Soft. Bowel tones present. EXTREMITIES: Without cyanosis. ASSESSMENT: 1. Methicillin-sensitive Staphylococcus aureus bacteremia secondary to #2. 2. Methicillin-resistant Staphylococcus aureus and Escherichia coli urinary tract infection. 3. Left pneumothorax, status post chest tube placement, secondary to fall. 4. History of meningioma. 5. Anemia. PLAN: The patient remains stable. Repeat blood culture on 12/13 negative. Continue present care. Anticipate dc on IV vancomycin for 7 more days. DW staff Problems: Consultation Date/Type/Reason Admit Date/Time Dec 04, 2016 at 20:35 Type of Consultation: id [id number] HR Interval Summary Constitutional: no complaints Exam/Review of Systems Vital Signs Vitals Vital Signs Date Time Temp Pulse Resp B/P Pulse Ox O2 Delivery O2 Flow Rate FiO2 12/17/16 08:03 98.3 91 18 116/69 96 12/17/16 02:41 2.0 12/16/16 20:00 Nasal Cannula Intake and Output 12/16/16 12/16/16 12/17/16 15:00 23:00 07:00 Intake Total 50 ml 340 ml Balance 50 ml 340 ml Results Result Diagram: 12/17/16 0430 12/17/16 0430 Results 24 hrs Laboratory Tests Test 12/16/16 15:12 12/16/16 17:20 12/17/16 04:30 Arterial Blood HCO3 30.7 H Arterial Blood Base Excess 6.4 H Arterial Blood Oxygen Saturation 93.3 L Yahir Test ACCEPTAB Arterial Blood Gas Puncture Site Left Radial Arterial Blood Carboxyhemoglobin 0.1 Arterial Blood Date Drawn 12/16/2016 4:34:01 PM Arterial Blood Methemoglobin 0.4 Arterial Blood pCO2 (Temp correct) 43.0 Arterial Blood pH (Temp corrected) 7.471 H Arterial Blood pO2 (Temp corrected) 68.7 L Blood Gas A-a O2 Differential 29.5 H Blood Gas Modality ROOM AIR Blood Gas Notified Time 12/16/2016 4:42:52 PM Blood Gas Notified Whom [employer] DIRECTOR Blood Gas Specimen Source Blood arterial Blood Gas Temperature 37.0 FiO2 21.0 Oxyhemoglobin Percent 92.8 L Total Hemoglobin 8.5 L Potassium Level 3.3 L 3.2 L Vancomycin Level Trough 21.1 *H Anion Gap 7 L Basophils # 0.0 Basophils % 0.5 Blood Morphology Comment Blood Urea Nitrogen 10 Calcium Level 7.5 L Carbon Dioxide Level 31 Chloride Level 104 Creatinine 0.60 Eosinophils # 0.4 Eosinophils % 7.9 H Glucose Level 71 Hematocrit 22.7 L Hemoglobin 7.3 L Lymphocytes # 1.0 Lymphocytes % 18.7 Mean Corpuscular Hemoglobin 27.5 L Mean Corpuscular Hemoglobin Concent 32.1 Mean Corpuscular Volume 85.6 Mean Platelet Volume 8.0 Monocytes # 0.4 Monocytes % 7.7 Neutrophils # 3.6 Neutrophils % 65.2 Nucleated Red Blood Cells # 0.0 Nucleated Red Blood Cells % 0.0 Platelet Count 481 H Red Blood Count 2.65 L Red Cell Distribution Width 18.6 H Sodium Level 139 White Blood Count 5.6 # Medications Medications Current Medications Gabapentin (Neurontin) 300 mg TID PO Last administered on 12/17/16 12:34; Admin Dose 300 MG; Start 12/05/16 at 09:00 Ondansetron HCl (Zofran Inj) 4 mg Q6H PRN IV NAUSEA AND/OR VOMITING Last administered on 12/15/16 17:23; Admin Dose 4 MG; Start 12/04/16 at 22:00 Lacosamide (Vimpat Liq) 75 mg BID PO Last administered on 12/17/16 10:24; Admin Dose 75 MG; Start 12/05/16 at 10:30 Pantoprazole Sodium (Protonix) 20 mg BID@06,18 PO Last administered on 06:34; Admin Dose 20 MG; Start 12/05/16 at 18:00 Miscellaneous Medication (Gi Cocktail (2)) 40 ml Q6 PRN PO HEARTBURN; Start at 12:30 Lorazepam (Ativan) 0.5 mg TID PO Last administered on 12/17/16 12:34; Admin Dose 0.5 MG; Start 12/06/16 at 21:00 Magnesium Hydroxide (Milk Of Mag) 30 ml DAILY PRN PO CONSTIPATION Last administered on 12/14/16 08:51; Admin Dose 30 ML; Start 12/07/16 at 18:30 Bisacodyl (Dulcolax) 10 mg DAILY PRN PO CONSTIPATION Last administered on 14:57; Admin Dose 10 MG; Start 12/08/16 at 14:00 Acetaminophen 650 mg 650 mg Q6H PRN PO PAIN AND OR ELEVATED TEMP Last administered on 12/10/16 14:52; Admin Dose 650 MG; Start 12/09/16 at 20:30 Ceftriaxone Sodium/Sodium Chloride (Rocephin/NS) 50 ml @ 100 mls/hr Q24H IVPB Last administered on 12/16/16 20:06; Admin Dose 100 MLS/HR; Start 12/11/16 at 17 :30 Morphine Sulfate (morphine) 2 mg Q4H PRN IV PAIN Last administered on 12/16/16 19:11; Admin Dose 2 MG; Start 12/13/16 at 18:00 IV Flush (NS 10 ml) 10 ml PRN PRN IV IV PROTOCOL; Start 12/14/16 at 15:30 Hydromorphone HCl (Dilaudid) 1 mg Q4H PRN IV PAIN Last administered on 10:58; Admin Dose 1 MG; Start 12/15/16 at 09:43 Furosemide 40 mg 40 mg DAILY IV Last administered on 12/17/16 08:12; Admin Dose 40 MG; Start 12/15/16 at 18:30 Vancomycin HCl (Vancocin) 100 ml @ 100 mls/hr Q12H IVPB Last administered on 10:26; Admin Dose 100 MLS/HR; Start 12/16/16 at 23:00 Acetaminophen/ Hydrocodone Bitart ([place] (10/325)) 1 tab Q6H PRN PO PAIN LEVEL 4-7 Last administered on 12/17/16 14:21; Admin Dose 1 TAB; Start 12/17/16 at 14: 10 CARMITA ANGULO NP Dec 17, 2016 15:07
== END 2016-12-17 17:52 | disposition home health service (06) | DRG 199 ==
LOC: E/R 13:53 → TEL 20:35 → PP2 12-09 17:15
PROVIDERS: ADMIT Internal Medicine; ATTEND Internal Medicine
PROC: 02HV33Z Insertion of Infusion Device into Superior Vena Cava, Percutaneous Approach (ICD-10-PCS; 2016-12-14)
PROC: 0W9B30Z Drainage of Left Pleural Cavity with Drainage Device, Percutaneous Approach (ICD-10-PCS; principal; 2016-12-15)
DX: S27.0XXA Traumatic pneumothorax, initial encounter (principal); A41.02 Sepsis due to Methicillin resistant Staphylococcus aureus; N17.9 Acute kidney failure, unspecified; D62 Acute posthemorrhagic anemia; J90 Pleural effusion, not elsewhere classified; I95.89 Other hypotension; S22.32XA Fracture of one rib, left side, initial encounter for closed fracture; F15.20 Other stimulant dependence, uncomplicated; Z68.1 Body mass index [BMI] 19.9 or less, adult; N39.0 Urinary tract infection, site not specified; J98.11 Atelectasis; T79.7XXA Traumatic subcutaneous emphysema, initial encounter; K83.8 Other specified diseases of biliary tract; E83.42 Hypomagnesemia; I10 Essential (primary) hypertension; W18.09XA Striking against other object with subsequent fall, initial encounter; M79.7 Fibromyalgia; E87.6 Hypokalemia; B96.20 Unspecified Escherichia coli [E. coli] as the cause of diseases classified elsewhere; I48.91 Unspecified atrial fibrillation; N20.0 Calculus of kidney; D50.9 Iron deficiency anemia, unspecified; F41.9 Anxiety disorder, unspecified; Z85.841 Personal history of malignant neoplasm of brain; Z86.011 Personal history of benign neoplasm of the brain; N26.1 Atrophy of kidney (terminal)
CPT/HCPCS: 32555; 36569; 36600; 70450; 71010; 71020; 71250; 73030; 74176; 74181; 76937; 80048; 80053; 80076; 80202; 81003; 82150; 82306; 82533; 82565; 82803; 82945; 83036; 83615; 83690; 83735; 84100; 84132; 84157; 84443; 84484; 84520; 85025; 85610; 85730; 86850; 86900; 86901; 87040; 87070; 87086; 87102; 87116; 88104; 88305; 88313; 89050; 93005; J0696; J1170; J1885; J1940; J2060; J2270; J2405; J2916; J3010; J3370; J3480; J7030; J7040